=== PATIENT | male | born 1945 | race Two or more races ===

== ENCOUNTER → 2024-02-26 | Outpatient (CLI) | payer OTHER, MEDICAID, SELFPAY ==
[2024-02-26 09:14] LABS: Basophils % (Auto) 0 % (0-2.5); Eosinophils # (Auto) 0.2 Thou/mm3 (0.0-0.5); Eosinophils % (Auto) 2 % (0-10); Hematocrit 40.9 % (41.0-53.0); Hemoglobin 13.7 g/dL (13.5-16.0); Immature Granulocytes % (Auto) 0 % (0-0); Immature Granulocytes Auto 0.03 Thou/mm3 (0.00-0.00); Lymphocytes # (Auto) 1.8 Thou/mm3 (1.0-4.8); Lymphocytes % (Auto) 25 % (10-50); Mean Corpuscular HGB Conc 33.5 g/dl (31.0-37.0); Mean Corpuscular Hemoglobin 31.3 pg (25.0-35.0); Mean Corpuscular Volume 93 fL (80-100); Monocytes # (Auto) 0.8 Thou/mm3 (0.0-0.8); Monocytes % (Auto) 10 % (0-12); Neutrophils # (Auto) 4.4 Thou/mm3 (1.8-7.7); Neutrophils % (Auto) 61 % (37-80); Nucleated Red Blood Cell % 0 /100 WBC (0); Platelet Count 230 Thou/mm3 (140-440); RDW Standard Deviation 46.3 fL (35.1-43.9); Red Blood Count 4.38 Miln/mm3 (4.50-5.90); White Blood Count 7.2 Thou/mm3 (3.8-10.6)
[2024-02-26 09:45] LABS: Alanine Aminotransferase 14 U/L (10-49); Albumin, Serum 4.9 gm/dL (3.4-4.8); Alkaline Phosphatase 85 U/L (46-116); Anion Gap 10 (7-16); Aspartate Amino Transferase 17 U/L (0-34); BUN/Creatinine Ratio 13 Ratio (12-20); Bilirubin,Direct 0.3 mg/dL (0.0-0.3); Blood Urea Nitrogen 15 mg/dL (9-23); Calcium 10.1 mg/dL (8.3-10.6); Carbon Dioxide 26.3 mMol/L (20.0-31.0); Cardiac Risk Estimate 3.8 RATIO (4.0-6.7); Chloride 99 mMol/L (98-107); Cholesterol 180 mg/dL (132-200); Creatinine (Component) 1.2 mg/dL (0.6-1.3); Glucose 110 mg/dL (74-106); HDL Cholesterol 48 mg/dL (40-60); LDL Cholesterol,Calculated 116 mg/dL (0-130); Osmolality,Calculated 271 (275-295); Potassium 4.6 mMol/L (3.4-5.1); Sodium 135 mMol/L (136-145); Total Protein 7.7 gm/dL (5.7-8.2); Triglycerides 80 mg/dL (30-150); eGFR > 60 See Note
[2024-02-26 10:16] LABS: Glucose Estimated Average 114 mg/dL (80-131); Hemoglobin A1C 5.6 % Hgb (4.8-6.0)
[2024-02-26 10:34] LABS: Creatinine MALB Rnd Ur 84 mg/dL (30-125); Microalbumin, Random Urine < 3 mg/L (0-300)
== END | disposition home or self-care (01) ==
LOC: COPL 07:12
PROVIDERS: PCP Family Medicine; Referring Provider Family Medicine; Visit Provider Family Medicine
DX: E11.3293 Type 2 diabetes mellitus with mild nonproliferative diabetic retinopathy without macular edema, bilateral (principal); M19.90 Unspecified osteoarthritis, unspecified site; E78.5 Hyperlipidemia, unspecified
CPT/HCPCS: 36415; 80048; 80061; 80076; 82043; 82570; 83036; 85025

== ENCOUNTER 2024-06-28 19:21 | Inpatient (IN) | payer OTHER, MEDICAID, MEDICARE, SELFPAY ==
--- NOTE | 2024-06-28 | XR_ITS ---
Examination: CT cervical spine without contrast 2-D sagittal reconstructions 2-D coronal reconstructions 3-D reconstructions. Exam date and time:June 28, 2024 2158 hours INDICATIONS: Neck pain with bilateral leg weakness today CTDI:vol (mGy) 7.57 DLP: (mGycm) 1212 Technique: Multiple 2 mm axial sections of the cervical spine have been obtained. The coronal and sagittal reconstructions have been obtained. 3-D reconstructions have been obtained. Low dose protocols were performed. One or more of the following dose reduction techniques were used; automated exposure control, adjustment of the mA and/or KV according to patient size, use of iterative reconstruction technique. Findings: Axial sections demonstrate intact base of the skull. C1 exhibit satisfactory relationship to the odontoid. No acute cervical vertebral body fracture seen. Alignment posterior spinous processes satisfactory. Advanced degenerative disc disease C3-C4, C4-C5 Impression: No acute cervical fracture. Advanced degenerative disc disease C3-C4, C4-C5 C3-C4, C4-C5 advanced bilateral neural foraminal stenosis
[2024-06-28 19:23] VITALS: BP 196/110; PULSE 118; RESP 18; TEMP 36.4; O2SAT 96
--- NOTE | 2024-06-28 19:33 | PD.EDFALL ---
ED Fall Injury RME/HPI General Chief Complaint: Fall Stated Complaint: WEAKNESS Time Seen by Provider: 06/28/24 19:32 Arrival date/time: 06/28/24 19:21 RME / HPI RME / HPI Narrative: Dr. Valdez?s Main ED Evaluation: 78yo male with a history of DM BIBA from home presents to the ED for a chief complaint of weakness. Per EMS, patient was watching TV when he was getting up when the patient's legs started feeling weak and fell. EMS states they found the patient laying on his side. They deny any head strikes or loss of consciousness. Blood sugar with EMS was 104. No headache, neck pain, chest pain, abdominal pain, shortness of breath or any other associated symptoms. Patient is not on any blood thinners. Patient does live alone. Related Data Home Medications ?Medication ?Instructions ?Recorded ?Confirmed paroxetine HCl 40 mg tablet (Paxil) 40 mg PO QAM #0 tabs 07/02/13 07/24/18 omeprazole 20 mg capsule,delayed 20 mg PO QDAY 07/24/18 07/24/18 release pioglitazone 30 mg tablet 30 mg PO QDAY 07/24/18 07/24/18 sitagliptin phosphate 100 mg 100 mg PO DAILY 07/24/18 07/24/18 tablet (Januvia) Previous Rx's ?Medication ?Instructions ?Recorded metformin 500 mg tablet 500 mg PO BIDAC #120 tabs 06/14/15 (Glucophage) ibuprofen 800 mg tablet 800 mg PO TID PRN pain #30 tabs 07/24/18 Allergies Allergy/AdvReac Type Severity Reaction Status Date / Time NKA* Allergy Uncoded 10/02/16 15:04 Review of Systems Review of Systems Systems Reviewed: All systems reviewed, normal except as documented Past Medical History Past Medical History CARDIAC: Negative Cardiac Disorders or Congestive Heart Failure RESPIRATORY: Positive Asthma; Negative Chronic Obstructive Pulmonary Disease (COPD) GASTROINTESTINAL: Positive Cirrhosis GENITOURINARY: Negative Renal Disease ENDOCRINE: Positive Diabetes Mellitus Type 2; Negative Diabetes Mellitus Type 1 HEMATOLOGIC: Negative Sickle Cell Disease Social History SMOKING STATUS: Never smoker SUBSTANCE USE: does not use ED Exam Narrative Physical exam: GENERAL APPEARANCE: AxOx4, generally well-appearing, malodorous, unkempt, no acute distress. HEENT: NC, AT. MMM. EOMI, clear conjunctiva, oropharynx clear. NECK: Supple without lymphadenopathy. No stiffness or restricted ROM. HEART: Normal rate and regular rhythm, normal S1/S1, no m/r/g LUNGS: CTAB, moving air well. No crackles or wheezes are heard. ABDOMEN: Soft, nontender, nondistended with good bowel sounds heard. BACK: No midline C/T/L spine pain or deformity, No CVAT, no obvious deformity. EXTREMITIES: Without cyanosis, clubbing or edema. MUSCULOSKELETAL: FROM of all major joints, no chest tenderness NEUROLOGICAL: Grossly nonfocal. Alert and oriented, moving all 4 extremities. CN not formally tested but appear grossly intact. Observed to ambulate with normal gait. Skin: Warm and dry without any rash. Course Course Course Narrative: CXR is ordered to r/o pneumothorax. CT abdomen pelvis and US gallbladder ordered due to LFTs and Total Bilirubin being elevated. 0441: Patient is now more awake and talking. Patient states he fell 2 days ago and hit his back, reporting he's had persistent back pain since. Prior to that, patient was able to ambulate normally without a walker or cane. On exam, patient has L2-L3 midline tenderness without any stepoff or swelling. MRI of the spine is ordered. 0600: Care signed out to Dr. Cavazos (emergency physician). Past medical, surgical, social and family history reviewed. Vitals and home medications reviewed. Results and treatment plan discussed. They will assume the care of the patient at this time and will follow the patient, pending MRI of the spine. Quality Measures none Orders Category Date Time Status CT Screening NOW Care 06/28/24 23:02 Active EKG (ED ONLY) *Do not use* NOW Care 06/28/24 19:49 Completed In and Out Catheter X1 Care 06/28/24 23:51 Completed MRI Screening NOW Care 06/29/24 04:[address] abdomen pelvis w con Stat Exams 06/28/24 23:[address] cervical spine wo con Stat Exams 06/28/[address] head/brain wo con Stat Exams 06/28/24 19:50 Completed EKG (ED Only) Stat Exams 06/28/24 19:49 Draft MR lumbar spine wo con Stat Exams 06/29/24 Ordered MR thoracic spine wo con Stat Exams 06/29/24 Ordered US gall bladder Stat Exams 06/29/24 00:40 Taken XR chest 1V Stat Exams 06/28/24 19:49 Completed Acetaminophen Stat Lab 06/28/24 21:28 Completed Alcohol, Blood Medical Stat Lab 06/28/24 21:28 Completed Blood Culture (Lab) Stat Lab 06/28/24 21:28 Received CBC Stat Lab 06/28/24 22:47 Completed CMP [Comprehensive Metabolic Panel] Stat Lab 06/28/24 21:28 Completed Drug Screen,Urine Stat Lab 06/28/24 23:45 Completed Lactate (Lactic Acid) Stat Lab 06/28/24 21:28 Completed Lactic Acid, 3 HR Stat Lab 06/29/24 01:13 Completed Procalcitonin Stat Lab 06/28/24 21:28 Completed Salicylate Stat Lab 06/28/24 21:28 Completed Troponin I Stat Lab 06/28/24 21:28 Completed Urinalysis Stat Lab 06/28/24 23:45 Completed Sodium Chloride 0.9% 1000 ml [Ns] 1,000 ml Med 06/28/24 19:43 Discontinued IV 999 mls/hr Sodium Chloride 0.9% 1000 ml [Ns] 1,000 ml Med 06/28/24 23:27 Discontinued IV 999 mls/hr Vital Signs Vital signs: Vital Signs Temperature 97.6 F 06/28/24 19:23 Pulse Rate 118 H 06/28/24 19:23 Respiratory Rate 18 06/28/24 19:23 Blood Pressure 196/110 H 06/28/24 19:23 Pulse Oximetry (%) 96 06/28/24 19:23 Oxygen Delivery Method Room Air 06/28/24 19:23 Fall MDM Narrative MDM Narrative:: Scribe Attestation: 06/28/24 Karla Garcia am scribing for and in the presence of Dr. Valdez. Patient data External records reviewed:: [facility] previous records (Per chart review, patient was seen here on 10/11/20 for dizziness.) Clinical information provided by:: EMS Social determinants that could affect healthcare access:: none Patient has the following chronic illnesses:: DM, asthma How is presenting disease/condition affected by chronic disease/condition?: uneffected by Evaluation data The following diagnostics were reviewed and interpreted by me:: lab results, radiology exam(s) and EKG tracing(s) Lab and/or radiology exams considered but not ordered:: none Interpretation Summary: Lactic Acid is 2.1, Procalcitonin is normal, Salicylates is negative, Acetaminophen is negative, total bilirubin is elevated at 2.3, AST and Alkaline Phosphatase are elevated, Blood Alcohol is negative, UDS is negative, according to my interpretation. Repeat lactic acid is normal. EKG done at 2020, sinus tachycardia, rate of 119, normal intervals, normal axis, no acute ST or T wave changes, according to my interpretation. [facility] Report Signed Patient: JOSE VICENTE [facility]. Record#: [id number] Birthdate: 1945 Age/Sex: 78 / M Location: [facility] Attending Dr: Ordering Physician: Petey Valdez MD Date of Service: 06/28/24 Procedure(s): XR chest 1V Accession Number(s): [id number] cc: Petey Valdez MD; Rusty Jimenez MD~ Examination: AP chest single view Technique one AP portable semiupright chest single view Date and time: June 28, 2024 2130 hours Comparison October 11, 2020 INDICATIONS: Weakness today. FINDINGS: Normal heart size Moderate vascular congestion No gerald lobar pneumonia Prominent osteopenia IMPRESSION: Moderate vascular congestion Dictated By: Rusty Jimenez MD Signed By: <Electronically signed by Rusty Jimenez MD in OV> 06/28/243 [facility] Preliminary Report Draft Patient: JOSE VICENTE [facility]. Record#: [id number] Birthdate: 1945 Age/Sex: 78 / M Location: [facility] Attending Dr: Ordering Physician: Date of Service: Procedure(s): Accession Number(s): cc: ~ Gallbladder ultrasound. June 29, 2024 0049 hours Clinical history: elevated liver enzymes Comparison: Reference is made to the prior report dated July 24, 2018. Findings: There is increased echogenicity of the liver. The liver demonstrates heterogeneous echotexture without mass or ductal dilatation. The main portal vein is patent and demonstrates hepatopetal flow. The hepatic veins and inferior vena cava are patent. The gallbladder is surgically absent. No operative bed masses or collections. The common duct is normal in caliber at 4 mm. The pancreas is unremarkable to the extent visualized. No free fluid is demonstrated on the submitted images. Impression: Heterogeneous echotexture and increased echogenicity of the liver. Recommend clinical correlation. Report Electronically Signed By: Alejandro Child 06/29/2024 2:31:44 AM [EST] --------- [facility] Preliminary Report Draft Patient: JOSE VICENTE. Record#: [id number] Birthdate: 1945 Age/Sex: 78 / M Location: [facility] Attending Dr: Ordering Physician: Date of Service: Procedure(s): Accession Number(s): cc: ~ CT scan of the abdomen and pelvis with intravenous contrast (axial sections with sagittal and coronal reformats) June 29, 2024 0159 hours Clinical History: abdominal pain, elevated bilirubin Comparison: Correlated with the prior US study performed earlier today. Findings: Bibasilar dependent atelectasis is present. There is interstitial septal thickening in both lung bases. There is small pericardial effusion. A 1.8 cm cyst is noted in the liver. The gallbladder is surgically absent. The pancreas, spleen, kidneys and adrenals are unremarkable. A moderate-sized hiatal hernia is present. No evidence of bowel obstruction. The appendix is not visualized. There are occasional colonic diverticula without evidence of diverticulitis. There is no mesenteric or retroperitoneal adenopathy. There is prostatomegaly. The urinary bladder is unremarkable. There is no free fluid or free air. The bones are osteopenic. Degenerative changes are identified in the spine. Impression: No evidence of bowel obstruction, free air or abscess. Other findings as described above. Report Electronically Signed By: Alejandro Child 06/29/2024 2:57:53 AM [EST] Medications / Prescriptions Medications or Prescriptions considered but not ordered:: none Medication administrations:: Medication Administration History Discontinued Medications Sodium Chloride (Ns) 1,000 mls @ 999 mls/hr IV .Q1H1M ONE Stop: 06/28/24 20:43 Last Infusion: 06/28/24 22:18 Dose: Infused Documented By: Admin: 06/28/24 21:17 Dose: 999 mls/hr Documented By: EF Sodium Chloride (Ns) 1,000 mls @ 999 mls/hr IV .Q1H1M ONE Stop: 06/29/24 00:27 Last Infusion: 06/29/24 00:33 Dose: Infused Documented By: Admin: 06/28/24 23:32 Dose: 999 mls/hr Documented By: DT see above Consultations Consultation(s) initiated? (list below): No Diagnosis Fall Differential Diagnosis: other (musculoskeletal strain, lumbar fracture, rib fracture, dehydration, rhabdomyolysis, EL) Most likely diagnosis given after review of the tests above:: see clinical impression below Admission Indicated Admission indicated?: not indicated Admission Request Was there a request for admission?: No Disposition Plan Disposition Plan: other (specify) (Signed out to Dr. Cavazos at 0600 pending MRI.) Discharge Plan Prescriptions/Referrals Prescriptions/Med Rec: No Action paroxetine HCl [Paxil] 40 MG tablet 40 mg PO QAM Qty: 0 metformin [Glucophage] 500 MG tablet 500 mg PO BIDAC Qty: 120 0RF omeprazole 20 mg Capsule,Delayed Release(Dr/Ec) 20 mg PO QDAY pioglitazone 30 mg Tablet 30 mg PO QDAY Januvia 100 mg Tablet 100 mg PO DAILY ibuprofen 800 mg tablet 800 mg PO TID PRN (Reason: pain) Qty: 30 0RF Referrals: Kat Esteban MD [Primary Care Provider] - In 1 week Problem List Clinical Impression: Fall Patient/Caregiver Discharge Instructions Print Language: Liberian
--- NOTE | 2024-06-28 19:49 | XR_ITS ---
Examination: AP chest single view Technique one AP portable semiupright chest single view Date and time: June 28, 2024 2130 hours Comparison October 11, 2020 INDICATIONS: Weakness today. FINDINGS: Normal heart size Moderate vascular congestion No gerald lobar pneumonia Prominent osteopenia IMPRESSION: Moderate vascular congestion
--- NOTE | 2024-06-28 19:49 | EKG_ITS ---
[facility] Test Date: 2024-06-28 Pat Name: JOSE VICENTE Department: Room: - Gender: Male Press Leader: : 1945 Requested By: Petey Valdez Order Number: [id number] Reading MD: Petey Valdez Measurements Intervals [place] Rate: 119 P: 42 CA: 174 QRS: 15 QRSD: 100 T: 63 QT: 326 QTc: 459 Interpretive Statements SINUS TACHYCARDIA MODERATE ST DEPRESSION [0.05+ mV ST DEPRESSION] Compared to ECG 07/23/2018 23:07:24 ST (T wave) deviation now present Sinus rhythm no longer present /store/S0/[id number].pdf
--- NOTE | 2024-06-28 19:50 | XR_ITS ---
Examination: CT brain head without contrast. 2-D sagittal coronal reconstructions Date and time of exam:June 28, 2024 2158 hours INDICATIONS: Headaches and leg weakness today CTDI: vol (mGy):7.57 DLP: (mGycm):1212 Technique: Multiple CT axial sections of the brain have been obtained, 5 mm slice thickness. Contrast has not been administered. 2-D sagittal, coronal reconstructions have been obtained Low dose protocols were performed. One or more of the following dose reduction techniques were used; automated exposure control, adjustment of the mA and/or KV according to patient size, use of iterative reconstruction technique. Findings: No significant ventricular enlargement. 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 No mass effect or midline shift Basal cisterns are not remarkable. Fourth ventricle is midline. Cranial vault intact. Acute sphenoid and ethmoid sinusitis, chronic maxillary sinusitis Impression: Negative for acute hemorrhage, mass effect or midline shift Is clinically warranted, brain MRI follow-up would best assess for acute ischemic change
[2024-06-28 20:56] VITALS: PULSE 116; RESP 20; O2SAT 98
[2024-06-28 21:00] VITALS: BP 175/105; PULSE 114; RESP 24; TEMP 36.5; O2SAT 90; BMI 26.6
[2024-06-28] MEDS: SODIUM CHLORIDE 0.9% 1000 ML 1,000 ML 999 ML IV ×2 (21:17→23:32)
[2024-06-28 21:44] LABS: Lactate (Lactic Acid) 2.1 mMol/L (0.4-2.0)
[2024-06-28 22:13] LABS: Acetaminophen < 2.0 mcg/mL (10.0-20.0); Alanine Aminotransferase 41 U/L (10-49); Albumin, Serum 4.4 gm/dL (3.4-4.8); Albumin/Globulin Ratio 1.3 (1.2-2.2); Alcohol, Blood Medical < 3.0 mg/dL (0-10.0); Alkaline Phosphatase 118 U/L (46-116); Anion Gap 9 (7-16); Aspartate Amino Transferase 43 U/L (0-34); BUN/Creatinine Ratio 16 Ratio (12-20); Bilirubin,Total 2.3 mg/dL (0.3-1.2); Blood Urea Nitrogen 13 mg/dL (9-23); Calcium 9.1 mg/dL (8.3-10.6); Calcium (Corrected) 9.1 mg/dL (8.5-10.1); Carbon Dioxide 26.2 mMol/L (20.0-31.0); Chloride 101 mMol/L (98-107); Creatinine (Component) 0.8 mg/dL (0.6-1.3); Estimated Creatinine Clearance 74.9 mL/min (>60); Globulin 3.4 gm/dL (2.3-3.5); Glucose 131 mg/dL (74-106); Osmolality,Calculated 274 (275-295); Procalcitonin 0.17 ng/ml (0.0-0.49); Salicylate < 3.0 mg/dL; Sodium 136 mMol/L (136-145); Total Protein 7.8 gm/dL (5.7-8.2); Troponin I < 0.020 ng/mL (0.0-0.045); eGFR > 60 See Note
[2024-06-28 22:42] VITALS: BP 184/97; PULSE 110; RESP 17; O2SAT 98
[2024-06-28 23:00] LABS: Basophils % (Auto) 0 % (0-2.5); Eosinophils % (Auto) 0 % (0-10); Hematocrit 34.7 % (41.0-53.0); Hemoglobin 12.6 g/dL (13.5-16.0); Immature Granulocytes % (Auto) 2 % (0-0); Immature Granulocytes Auto 0.17 Thou/mm3 (0.00-0.00); Lymphocytes # (Auto) 0.6 Thou/mm3 (1.0-4.8); Lymphocytes % (Auto) 6 % (10-50); Mean Corpuscular HGB Conc 36.3 g/dl (31.0-37.0); Mean Corpuscular Hemoglobin 32.1 pg (25.0-35.0); Mean Corpuscular Volume 88 fL (80-100); Monocytes % (Auto) 10 % (0-12); Neutrophils # (Auto) 8.5 Thou/mm3 (1.8-7.7); Neutrophils % (Auto) 83 % (37-80); Nucleated Red Blood Cell % 0 /100 WBC (0); Platelet Count 197 Thou/mm3 (140-440); RDW Standard Deviation 41.4 fL (35.1-43.9); Red Blood Count 3.93 Miln/mm3 (4.50-5.90); White Blood Count 10.3 Thou/mm3 (3.8-10.6)
--- NOTE | 2024-06-28 23:02 | XR_ITS ---
Examination: CT abdomen with intravenous contrast CT pelvis with intravenous contrast 2-D coronal reconstructions 2-D sagittal reconstructions Date and time of exam:June 29, 2024 at 0201 hours Comparison 03/26/2018 INDICATIONS: Abdominal pain and elevated bilirubin today. CTDI: vol (mGy) 7.53 DLP: (mGycm) 444 Technique: Multiple axial sections of the abdomen and pelvis have been obtained. 64 slice high-resolution scanner used. 3 mm axial sections have been obtained, post intravenous injection 60 cc [id number] 2-D sagittal, coronal reconstructions obtained. Low dose protocols were performed. One or more of the following dose reduction techniques were used; automated exposure control, adjustment of the mA and/or KV according to patient size, use of iterative reconstruction technique. Findings: 20 mm right lobe liver cyst Absent gallbladder Spleen not enlarged Common bile duct 10 mm Minimal dilatation 3 mm pancreatic duct Nodular thickening left adrenal gland Aorta normal size No hydronephrosis No bowel obstruction No pericecal inflammatory changes No diverticulitis TURP defect Transverse prostate dimension 5 cm Fat-containing inguinal hernias Prominent osteopenia with advanced disc narrowing L5-S1 IMPRESSION: Common bile duct 10 mm, mild dilatation pancreatic duct, given the patient's elevated bilirubin, consider MRCP follow-up
[2024-06-28 23:54] LABS: Collection Type, Urine Catheter; Squamous Epithelial Cell,Urine 0 /hpf (0-5); WBC,Urine 0 /hpf (0-5)
[2024-06-29] VITALS (11 sets, daily range): BP systolic 150–196; BP diastolic 69–137; PULSE 100–118; RESP 16–28; TEMP 36.4–38.3; O2SAT 91–96
--- NOTE | 2024-06-29 | XR_ITS ---
Examination: MRI lumbar spine without contrast Date and time of exam: June 29, 2024 0901 hours INDICATIONS: Patient fell yesterday with injury to the lower back, lower back pain. Technique: Multiple MRI axial and sagittal sections lumbar spine. Sagittal T2-weighted images, TR 3500, TE 118 T1 weighted transverse sections, TR 688 T8.5, T2-weighted sagittal sections T1 weighted sagittal sections TR 621, TE 30 T2 axial sections, TR 4, 190, TE 84. Findings: Acute fracture L1 vertebral body, depression superior endplate, reduction in height 20% Adequate alignment of this lumbar vertebral body Advanced disc narrowing L5-S1 L5-S1 2 mm central lumbar disc bulge L4-L5 5 mm right paracentral disc bulge L3-L4 2 mm central lumbar disc L2-L3 no disc protrusion L1-L2 no disc protrusion IMPRESSION: Consider CT scan lumbar spine follow-up to assess stability of acute fracture L1 vertebral body
--- NOTE | 2024-06-29 | XR_ITS ---
Examination: MRI thoracic spine without contrast. Date and time of exam: June 29, 2024 0827 hours INDICATIONS: Patient fell yesterday with injury to the back, back pain Technique: Multiple sagittal and axial images of the thoracic spine have been obtained. T1 weighted localizer, sagittal T2 weighted images, TR 30-50, TE 148, T1 weighted sagittal images, TR 650, TE 14, T2-weighted transverse images, TR 6770, TE 142 Findings: Adequate alignment thoracic vertebral bodies on the lateral view No acute thoracic fracture Diffuse thoracic disc narrowing, mild to moderate Diffuse thoracic disc desiccation No localized enlargement thoracic cord Axial images demonstrate no focal disc protrusion impinging upon the thoracic cord Acute appearing fracture depression superior endplate L1 IMPRESSION: Diffuse [id number] thoracic degenerative disc disease No acute thoracic fracture No focal thoracic disc protrusion impinging upon the thoracic cord Impression: Recommend CT scan lumbar spine follow-up to confirm acute compression fracture L1 vertebral body
[2024-06-29 00:22] LABS: Amphetamine/Methamp Scrn,U Negative (Negative); Barbiturate Screen,Urine Negative (Negative); Benzodiazepines Screen,Urine Negative (Negative); Benzoylecgonine Screen, Ur Negative (Negative); Fentanyl Screen,Urine Negative (Negative); Opiate Screen,Urine Negative (Negative); THC Screen,Urine Negative (Negative)
[2024-06-29 00:39] LABS: Bacteria,Urine Rare; Bilirubin,Urine Negative (Negative); Blood,Urine 2+ (Negative); Clarity,Urine Clear (Clear/Hazy); Color,Urine Yellow (Lt Yel-Yel); Glucose, Urine Negative (Negative); Ketones,Urine 1+ (Negative); Leukocyte Esterase,Urine Negative (Negative); Nitrite,Urine Negative (Negative); PH,Urine 6.5 (5.0-7.0); Protein,Urine Trace (Neg - Trace); RBC,Urine 79 /hpf (0-3); Specific Gravity,Urine 1.015 (1.001-1.035)
--- NOTE | 2024-06-29 00:40 | XR_ITS ---
Examination: Abdomen sonogram, Limited Date and time of exam: June 29, 2024 0049 hours INDICATIONS: Elevated liver function tests including bilirubin on laboratory examination today and with upper abdominal pain Technique: Real-time valderrama scale transabdominal sonographic images of the upper abdomen obtained. Findings: No diagnostic visualization gallbladder Common bile duct 0.4 cm Pancreatic head 1.7 cm Liver 15.6 cm fatty infiltration Normal hepatopedal portal venous and Patent IVC IMPRESSION: Limited study, lack of patient cooperation No diagnostic visualization gallbladder Common bile duct 0.4 cm no stones noted
[2024-06-29 00:42] LABS: Reflex Lactate? Y
[2024-06-29 01:20] LABS: Lactic Acid, 3 HR 1.8 mMol/L (0.4-2.0)
--- NOTE | 2024-06-29 02:32 | PRELIM_ITS ---
Gallbladder ultrasound. June 29, 2024 0049 hours Clinical history: elevated liver enzymes Comparison: Reference is made to the prior report dated July 24, 2018. Findings: There is increased echogenicity of the liver. The liver demonstrates heterogeneous echotexture without mass or ductal dilatation. The main portal vein is patent and demonstrates hepatopetal flow. The hepatic veins and inferior vena cava are patent. The gallbladder is surgically absent. No operative bed masses or collections. The common duct is normal in caliber at 4 mm. The pancreas is unremarkable to the extent visualized. No free fluid is demonstrated on the submitted images. Impression: Heterogeneous echotexture and increased echogenicity of the liver. Recommend clinical correlation. Report Electronically Signed By: Alejandro Child 06/29/2024 2:31:44 AM [EST]
--- NOTE | 2024-06-29 02:59 | PRELIM_ITS ---
CT scan of the abdomen and pelvis with intravenous contrast (axial sections with sagittal and coronal reformats) June 29, 2024 0159 hours Clinical History: abdominal pain, elevated bilirubin Comparison: Correlated with the prior US study performed earlier today. Findings: Bibasilar dependent atelectasis is present. There is interstitial septal thickening in both lung bases. There is small pericardial effusion. A 1.8 cm cyst is noted in the liver. The gallbladder is surgically absent. The pancreas, spleen, kidneys and adrenals are unremarkable. A moderate-sized hiatal hernia is present. No evidence of bowel obstruction. The appendix is not visualized. There are occasional colonic diverticula without evidence of diverticulitis. There is no mesenteric or retroperitoneal adenopathy. There is prostatomegaly. The urinary bladder is unremarkable. There is no free fluid or free air. The bones are osteopenic. Degenerative changes are identified in the spine. Impression: No evidence of bowel obstruction, free air or abscess. Other findings as described above. Report Electronically Signed By: Alejandro Child 06/29/2024 2:57:53 AM [EST]
--- NOTE | 2024-06-29 03:30 | PC.NURSE ---
bp 158/137 aware no new orders
--- NOTE | 2024-06-29 04:14 | PC.NURSE ---
bp 216/118 aware no new orders
--- NOTE | 2024-06-29 05:23 | PC.NURSE ---
bp 205/102 made aware
--- NOTE | 2024-06-29 06:18 | EDNOTE_ITS ---
Emergency Room Addendum <Negra El - Last Filed: 06/29/24 13:47> Addendum Narrative: 0600: Care assumed from Dr. Valdez (emergency physician). Past medical, surgical, social and family history reviewed. Vitals and home medications reviewed. Results and treatment plan discussed. I will assume the care of the patient at this time and will follow the patient, pending MRI of thoriacic spine and lumbar spine. 1047: I evaluated the MRI lumbar and results found acute fracture L1 vertebral body and depression superior endplate. Recommendation of further diagnostic imaging of CT lumbar spine was made. Pending CT lumbar spine results. Patient was notified of findings and further diagnostic imagining orders. Was notified by director of social work that PT is requesting a TLSO brace for L1 compression fracture prior to evaluation. They have requested a TLSO prescription ordered, which has been completed. DIAGNOSIS: RADIOLOGY: Ordering Physician: Riley Cavazos MD Date of Service: 06/29/24 Procedure(s): CT lumbar spine wo con Accession Number(s): [id number] cc: Riley Cavazos MD; Rusty Jimenez MD; Amy Terrazas MD~ Examination: CT lumbar spine, without contrast. 2-D sagittal reconstructions. 2-D coronal reconstructions. 3-D reconstructions. Date and time of exam:June 29, 2024 at 1118 hours INDICATIONS: Patient fell today with injury to lower back, lower back pain CTDI: vol (mGy):21.5 DLP: (mGycm):784 Technique: Multiple 1.25 mm axial sections of the lumbar spine without intravenous contrast have been obtained. 2-D sagittal and coronal reconstructions have been obtained. 3-D reconstructions have been obtained. Low dose protocols were performed. One or more of the following dose reduction techniques were used; automated exposure control, adjustment of the mA and/or KV according to patient size, use of iterative reconstruction technique. Findings: Acute fracture of L1 vertebral body, depression superior endplate, reduction in height 10% No retropulsion of this vertebral body The pedicles and lamina in transverse posterior spinous processes are intact Significant disc narrowing L5-S1 IMPRESSION: Mild acute fracture L1 vertebral body with satisfactory alignment Dictated By: Rusty Jimenez MD Signed By: <Electronically signed by Rusty Jimenez MD in OV> 06/29/24 1133 Ordering Physician: Petey Valdez MD Date of Service: 06/29/24 Procedure(s): MR lumbar spine wo con Accession Number(s): [id number] cc: Petey Valdez MD; Rusty Jimenez MD; Amy Terrazas MD~ Examination: MRI lumbar spine without contrast Date and time of exam: June 29, 2024 0901 hours INDICATIONS: Patient fell yesterday with injury to the lower back, lower back pain. Technique: Multiple MRI axial and sagittal sections lumbar spine. Sagittal T2-weighted images, TR 3500, TE 118 T1 weighted transverse sections, TR 688 T8.5, T2-weighted sagittal sections T1 weighted sagittal sections TR 621, TE 30 T2 axial sections, TR 4, 190, TE 84. Findings: Acute fracture L1 vertebral body, depression superior endplate, reduction in height 20% Adequate alignment of this lumbar vertebral body Advanced disc narrowing L5-S1 L5-S1 2 mm central lumbar disc bulge L4-L5 5 mm right paracentral disc bulge L3-L4 2 mm central lumbar disc L2-L3 no disc protrusion L1-L2 no disc protrusion IMPRESSION: Consider CT scan lumbar spine follow-up to assess stability of acute fracture L1 vertebral body Dictated By: Rusty Jimenez MD Signed By: <Electronically signed by Rusty Jimenez MD in OV> 06/29/2428 Ordering Physician: Petey Valdez MD Date of Service: 06/29/24 Procedure(s): MR thoracic spine wo con Accession Number(s): [id number] cc: Petey Valdez MD; Rusty Jimenez MD; Amy Terrazas MD~ Examination: MRI thoracic spine without contrast. Date and time of exam: June 29, 2024 0827 hours INDICATIONS: Patient fell yesterday with injury to the back, back pain Technique: Multiple sagittal and axial images of the thoracic spine have been obtained. T1 weighted localizer, sagittal T2 weighted images, TR 30-50, TE 148, T1 weighted sagittal images, TR 650, TE 14, T2-weighted transverse images, TR 6770, TE 142 Findings: Adequate alignment thoracic vertebral bodies on the lateral view No acute thoracic fracture Diffuse thoracic disc narrowing, mild to moderate Diffuse thoracic disc desiccation No localized enlargement thoracic cord Axial images demonstrate no focal disc protrusion impinging upon the thoracic cord Acute appearing fracture depression superior endplate L1 IMPRESSION: Diffuse ggmn-[id number]-npetdwsr thoracic degenerative disc disease No acute thoracic fracture No focal thoracic disc protrusion impinging upon the thoracic cord Impression: Recommend CT scan lumbar spine follow-up to confirm acute compression fracture L1 vertebral body Dictated By: Rusty Jimenez MD Signed By: <Electronically signed by Rusty Jimenez MD in OV> 06/29/24 0921 Ordering Physician: Petey Valdez MD Date of Service: 06/28/24 Procedure(s): CT cervical spine [facility] Accession Number(s): [id number] cc: Petey Valdez MD; Rusty Jimenez MD~ Examination: CT cervical spine without contrast 2-D sagittal reconstructions 2-D coronal reconstructions 3-D reconstructions. Exam date and time:June 28, 2024 2158 hours INDICATIONS: Neck pain with bilateral leg weakness today CTDI:vol (mGy) 7.57 DLP: (mGycm) 1212 Technique: Multiple 2 mm axial sections of the cervical spine have been obtained. The coronal and sagittal reconstructions have been obtained. 3-D reconstructions have been obtained. Low dose protocols were performed. One or more of the following dose reduction techniques were used; automated exposure control, adjustment of the mA and/or KV according to patient size, use of iterative reconstruction technique. Findings: Axial sections demonstrate intact base of the skull. C1 exhibit satisfactory relationship to the odontoid. No acute cervical vertebral body fracture seen. Alignment posterior spinous processes satisfactory. Advanced degenerative disc disease C3-C4, C4-C5 Impression: No acute cervical fracture. Advanced degenerative disc disease C3-C4, C4-C5 C3-C4, C4-C5 advanced bilateral neural foraminal stenosis Dictated By: Rusty Jimenez MD Signed By: <Electronically signed by Rusty Jimenez MD in OV> 06/28/242256 Ordering Physician: Petey Valdez MD Date of Service: 06/28/24 Procedure(s): XR chest 1V Accession Number(s): [id number] cc: Petey Valdez MD; Rusty Jimenez MD~ Examination: AP chest single view Technique one AP portable semiupright chest single view Date and time: June 28, 2024 2130 hours Comparison October 11, 2020 INDICATIONS: Weakness today. FINDINGS: Normal heart size Moderate vascular congestion No gerald lobar pneumonia Prominent osteopenia IMPRESSION: Moderate vascular congestion Dictated By: Rusty Jimenez MD Signed By: <Electronically signed by Rusty Jimenez MD in OV> 06/28/242152 ====== Ordering Physician: Petey Valdez MD Date of Service: 06/28/24 Procedure(s): CT head/brain wo con Accession Number(s): [id number] cc: Petey Valdez MD; Rusty Jimenez MD~ Examination: CT brain head without contrast. 2-D sagittal coronal reconstructions Date and time of exam:June 28, 2024 2158 hours INDICATIONS: Headaches and leg weakness today CTDI: vol (mGy):7.57 DLP: (mGycm):1212 Technique: Multiple CT axial sections of the brain have been obtained, 5 mm slice thickness. Contrast has not been administered. 2-D sagittal, coronal reconstructions have been obtained Low dose protocols were performed. One or more of the following dose reduction techniques were used; automated exposure control, adjustment of the mA and/or KV according to patient size, use of iterative reconstruction technique. Findings: No significant ventricular enlargement. 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 No mass effect or midline shift Basal cisterns are not remarkable. Fourth ventricle is midline. Cranial vault intact. Acute sphenoid and ethmoid sinusitis, chronic maxillary sinusitis Impression: Negative for acute hemorrhage, mass effect or midline shift Is clinically warranted, brain MRI follow-up would best assess for acute ischemic change Dictated By: Rusty Jimenez MD Signed By: <Electronically signed by Rusty Jimenez MD in OV> 06/28/24 4385 Ordering Physician: Date of Service: Procedure(s): Accession Number(s): cc: ~ CT scan of the abdomen and pelvis with intravenous contrast (axial sections with sagittal and coronal reformats) June 29, 2024 0159 hours Clinical History: abdominal pain, elevated bilirubin Comparison: Correlated with the prior US study performed earlier today. Findings: Bibasilar dependent atelectasis is present. There is interstitial septal thickening in both lung bases. There is small pericardial effusion. A 1.8 cm cyst is noted in the liver. The gallbladder is surgically absent. The pancreas, spleen, kidneys and adrenals are unremarkable. A moderate-sized hiatal hernia is present. No evidence of bowel obstruction. The appendix is not visualized. There are occasional colonic diverticula without evidence of diverticulitis. There is no mesenteric or retroperitoneal adenopathy. There is prostatomegaly. The urinary bladder is unremarkable. There is no free fluid or free air. The bones are osteopenic. Degenerative changes are identified in the spine. Impression: No evidence of bowel obstruction, free air or abscess. Other findings as described above. Report Electronically Signed By: Alejandro Child 06/29/2024 2:57:53 AM [EST] Ordering Physician: Date of Service: Procedure(s): Accession Number(s): cc: ~ Gallbladder ultrasound. June 29, 2024 0049 hours Clinical history: elevated liver enzymes Comparison: Reference is made to the prior report dated July 24, 2018. Findings: There is increased echogenicity of the liver. The liver demonstrates heterogeneous echotexture without mass or ductal dilatation. The main portal vein is patent and demonstrates hepatopetal flow. The hepatic veins and inferior vena cava are patent. The gallbladder is surgically absent. No operative bed masses or collections. The common duct is normal in caliber at 4 mm. The pancreas is unremarkable to the extent visualized. No free fluid is demonstrated on the submitted images. Impression: Heterogeneous echotexture and increased echogenicity of the liver. Recommend clinical correlation. Report Electronically Signed By: Alejandro Child 06/29/2024 2:31:44 AM [EST] <Cyndee Cannon - Last Filed: 06/29/24 17:47> Addendum Narrative: 0600: Care assumed from Dr. Valdez (emergency physician). Past medical, surgical, social and family history reviewed. Vitals and home medications reviewed. Results and treatment plan discussed. I will assume the care of the patient at this time and will follow the patient, pending MRI of thoriacic spine and lumbar spine. 1047: I evaluated the MRI lumbar and results found acute fracture L1 vertebral body and depression superior endplate. Recommendation of further diagnostic imaging of CT lumbar spine was made. Pending CT lumbar spine results. Patient was notified of findings and further diagnostic imagining orders. Was notified by director of social work that PT is requesting a TLSO brace for L1 compression fracture prior to evaluation. They have requested a TLSO prescription ordered, which has been completed. 1800: Patient signed out to Dr. Ellis, pending TLSO brace for PT evaluation. RADIOLOGY Ordering Physician: Riley Cavazos MD Date of Service: 06/29/24 Procedure(s): CT lumbar spine wo con Accession Number(s): [id number] cc: Riley Cavazos MD; Rusty Jimenez MD; Amy Terrazas MD~ Examination: CT lumbar spine, without contrast. 2-D sagittal reconstructions. 2-D coronal reconstructions. 3-D reconstructions. Date and time of exam:June 29, 2024 at 1118 hours INDICATIONS: Patient fell today with injury to lower back, lower back pain CTDI: vol (mGy):21.5 DLP: (mGycm):784 Technique: Multiple 1.25 mm axial sections of the lumbar spine without intravenous contrast have been obtained. 2-D sagittal and coronal reconstructions have been obtained. 3-D reconstructions have been obtained. Low dose protocols were performed. One or more of the following dose reduction techniques were used; automated exposure control, adjustment of the mA and/or KV according to patient size, use of iterative reconstruction technique. Findings: Acute fracture of L1 vertebral body, depression superior endplate, reduction in height 10% No retropulsion of this vertebral body The pedicles and lamina in transverse posterior spinous processes are intact Significant disc narrowing L5-S1 IMPRESSION: Mild acute fracture L1 vertebral body with satisfactory alignment Dictated By: Rusty Jimenez MD Signed By: <Electronically signed by Rusty Jimenez MD in OV> 06/29/24 1133 === Ordering Physician: Petey Valdez MD Date of Service: 06/29/24 Procedure(s): MR lumbar spine wo [facility] Accession Number(s): [id number] cc: Petey Valdez MD; Rusty Jimenez MD; Amy Terrazas MD~ Examination: MRI lumbar spine without contrast Date and time of exam: June 29, 2024 0901 hours INDICATIONS: Patient fell yesterday with injury to the lower back, lower back pain. Technique: Multiple MRI axial and sagittal sections lumbar spine. Sagittal T2-weighted images, TR 3500, TE 118 T1 weighted transverse sections, TR 688 T8.5, T2-weighted sagittal sections T1 weighted sagittal sections TR 621, TE 30 T2 axial sections, TR 4, 190, TE 84. Findings: Acute fracture L1 vertebral body, depression superior endplate, reduction in height 20% Adequate alignment of this lumbar vertebral body Advanced disc narrowing L5-S1 L5-S1 2 mm central lumbar disc bulge L4-L5 5 mm right paracentral disc bulge L3-L4 2 mm central lumbar disc L2-L3 no disc protrusion L1-L2 no disc protrusion IMPRESSION: Consider CT scan lumbar spine follow-up to assess stability of acute fracture L1 vertebral body Dictated By: Rusty Jimenez MD Signed By: <Electronically signed by Rusty Jimenez MD in OV> 06/29/24 0928 Ordering Physician: Petey Valdez MD Date of Service: 06/29/24 Procedure(s): MR thoracic spine wo con Accession Number(s): [id number] cc: Petey Valdez MD; Rusty Jimenez MD; Amy Terrazas MD~ Examination: MRI thoracic spine without contrast. Date and time of exam: June 29, 2024 0827 hours INDICATIONS: Patient fell yesterday with injury to the back, back pain Technique: Multiple sagittal and axial images of the thoracic spine have been obtained. T1 weighted localizer, sagittal T2 weighted images, TR 30-50, TE 148, T1 weighted sagittal images, TR 650, TE 14, T2-weighted transverse images, TR 6770, TE 142 Findings: Adequate alignment thoracic vertebral bodies on the lateral view No acute thoracic fracture Diffuse thoracic disc narrowing, mild to moderate Diffuse thoracic disc desiccation No localized enlargement thoracic cord Axial images demonstrate no focal disc protrusion impinging upon the thoracic cord Acute appearing fracture depression superior endplate L1 IMPRESSION: Diffuse igia-ci-yjeudjnm thoracic degenerative disc disease No acute thoracic fracture No focal thoracic disc protrusion impinging upon the thoracic cord Impression: Recommend CT scan lumbar spine follow-up to confirm acute compression fracture L1 vertebral body Dictated By: Rusty Jimenez MD Signed By: <Electronically signed by Rusty Jimenez MD in OV> 06/29/24 0921 Ordering Physician: Petey Valdez MD Date of Service: 06/28/24 Procedure(s): CT cervical spine wo con Accession Number(s): [id number] cc: Petey Valdez MD; Rusty Jimenez MD~ Examination: CT cervical spine without contrast 2-D sagittal reconstructions 2-D coronal reconstructions 3-D reconstructions. Exam date and time:June 28, 2024 2158 hours INDICATIONS: Neck pain with bilateral leg weakness today CTDI:vol (mGy) 7.57 DLP: (mGycm) 1212 Technique: Multiple 2 mm axial sections of the cervical spine have been obtained. The coronal and sagittal reconstructions have been obtained. 3-D reconstructions have been obtained. Low dose protocols were performed. One or more of the following dose reduction techniques were used; automated exposure control, adjustment of the mA and/or KV according to patient size, use of iterative reconstruction technique. Findings: Axial sections demonstrate intact base of the skull. C1 exhibit satisfactory relationship to the odontoid. No acute cervical vertebral body fracture seen. Alignment posterior spinous processes satisfactory. Advanced degenerative disc disease C3-C4, C4-C5 Impression: No acute cervical fracture. Advanced degenerative disc disease C3-C4, C4-C5 C3-C4, C4-C5 advanced bilateral neural foraminal stenosis Dictated By: Rusty Jimenez MD Signed By: <Electronically signed by Rusty Jimenez MD in OV> 06/28/242256 Ordering Physician: Petey Valdez MD Date of Service: 06/28/24 Procedure(s): XR chest 1V Accession Number(s): [id number] cc: Petey Valdez MD; Rusty Jimenez MD~ Examination: AP chest single view Technique one AP portable semiupright chest single view Date and time: June 28, 2024 2130 hours Comparison October 11, 2020 INDICATIONS: Weakness today. FINDINGS: Normal heart size Moderate vascular congestion No gerald lobar pneumonia Prominent osteopenia IMPRESSION: Moderate vascular congestion Dictated By: Rusty Jimenez MD Signed By: <Electronically signed by Rusty Jimenez MD in OV> 06/28/242152 ====== Ordering Physician: Petey Valdez MD Date of Service: 06/28/24 Procedure(s): CT head/brain wo con Accession Number(s): [id number] cc: Petey Vadlez MD; Rusty Jimenez MD~ Examination: CT brain head without contrast. 2-D sagittal coronal reconstructions Date and time of exam:June 28, 2024 2158 hours INDICATIONS: Headaches and leg weakness today CTDI: vol (mGy):7.57 DLP: (mGycm):1212 Technique: Multiple CT axial sections of the brain have been obtained, 5 mm slice thickness. Contrast has not been administered. 2-D sagittal, coronal reconstructions have been obtained Low dose protocols were performed. One or more of the following dose reduction techniques were used; automated exposure control, adjustment of the mA and/or KV according to patient size, use of iterative reconstruction technique. Findings: No significant ventricular enlargement. 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 No mass effect or midline shift Basal cisterns are not remarkable. Fourth ventricle is midline. Cranial vault intact. Acute sphenoid and ethmoid sinusitis, chronic maxillary sinusitis Impression: Negative for acute hemorrhage, mass effect or midline shift Is clinically warranted, brain MRI follow-up would best assess for acute ischemic change Dictated By: Rusty Jimenez MD Signed By: <Electronically signed by Rusty Jimenez MD in OV> 06/28/24 2662 Ordering Physician: Date of Service: Procedure(s): Accession Number(s): cc: ~ CT scan of the abdomen and pelvis with intravenous contrast (axial sections with sagittal and coronal reformats) June 29, 2024 0159 hours Clinical History: abdominal pain, elevated bilirubin Comparison: Correlated with the prior US study performed earlier today. Findings: Bibasilar dependent atelectasis is present. There is interstitial septal thickening in both lung bases. There is small pericardial effusion. A 1.8 cm cyst is noted in the liver. The gallbladder is surgically absent. The pancreas, spleen, kidneys and adrenals are unremarkable. A moderate-sized hiatal hernia is present. No evidence of bowel obstruction. The appendix is not visualized. There are occasional colonic diverticula without evidence of diverticulitis. There is no mesenteric or retroperitoneal adenopathy. There is prostatomegaly. The urinary bladder is unremarkable. There is no free fluid or free air. The bones are osteopenic. Degenerative changes are identified in the spine. Impression: No evidence of bowel obstruction, free air or abscess. Other findings as described above. Report Electronically Signed By: Alejandro Child 06/29/2024 2:57:53 AM [EST] Ordering Physician: Date of Service: Procedure(s): Accession Number(s): cc: ~ Gallbladder ultrasound. June 29, 2024 0049 hours Clinical history: elevated liver enzymes Comparison: Reference is made to the prior report dated July 24, 2018. Findings: There is increased echogenicity of the liver. The liver demonstrates heterogeneous echotexture without mass or ductal dilatation. The main portal vein is patent and demonstrates hepatopetal flow. The hepatic veins and inferior vena cava are patent. The gallbladder is surgically absent. No operative bed masses or collections. The common duct is normal in caliber at 4 mm. The pancreas is unremarkable to the extent visualized. No free fluid is demonstrated on the submitted images. Impression: Heterogeneous echotexture and increased echogenicity of the liver. Recommend clinical correlation. Report Electronically Signed By: Alejandro Child 06/29/2024 2:31:44 AM [EST]
--- NOTE | 2024-06-29 07:52 | PC.NURSE ---
PT RESTING IN BED AT THIS TIME. PT STATES THAT HE CAME IN FOR BACK PAIN AFTER FALL. NO LOC. PT AWAITING MRI AT THIS TIME. PT IN POC. CALL LIGHT WITHIN REACH
--- NOTE | 2024-06-29 10:49 | XR_ITS ---
Examination: CT lumbar spine, without contrast. 2-D sagittal reconstructions. 2-D coronal reconstructions. 3-D reconstructions. Date and time of exam:June 29, 2024 at 1118 hours INDICATIONS: Patient fell today with injury to lower back, lower back pain CTDI: vol (mGy):21.5 DLP: (mGycm):784 Technique: Multiple 1.25 mm axial sections of the lumbar spine without intravenous contrast have been obtained. 2-D sagittal and coronal reconstructions have been obtained. 3-D reconstructions have been obtained. Low dose protocols were performed. One or more of the following dose reduction techniques were used; automated exposure control, adjustment of the mA and/or KV according to patient size, use of iterative reconstruction technique. Findings: Acute fracture of L1 vertebral body, depression superior endplate, reduction in height 10% No retropulsion of this vertebral body The pedicles and lamina in transverse posterior spinous processes are intact Significant disc narrowing L5-S1 IMPRESSION: Mild acute fracture L1 vertebral body with satisfactory alignment
[2024-06-29] MEDS: PANTOPRAZOLE INJ 40 MG VIAL IVP (11:46)
--- NOTE | 2024-06-29 13:58 | PC.CC ---
Per Dr. Cavazos, patient has an acute L1 fracutre. He requested PT to evaluate patient. SW contacted Pt and spoke to Aysha who recommended that patient obtain a TLSO brace prior to evaluation. MARC completed referral for TLSO brace through [facility]. When PT is completed, SS will be able to complete a safe discharge plan.
--- NOTE | 2024-06-29 14:00 | PC.NURSE ---
pt incontinent of urine. pt cleaned up and new brief applied
--- NOTE | 2024-06-29 16:45 | PC.NURSE ---
pt had rectal temp of 100.9 [address] tachy at 117[address] Dr wood informed. per Dr. Wood no sepsis alert needed to be called. awaiting new orders at this time
[2024-06-29] MEDS: SODIUM CHLORIDE 0.9% 1000 ML 1,000 ML 999 ML IV (17:23)
--- NOTE | 2024-06-29 17:23 | XR_ITS ---
Examination: AP chest single view Technique one AP portable semiupright chest single view Exam date and time: 06/29/2024 at 1738 hours Comparison June 28 June 28, 2024 INDICATION: Chest pain and fever being in 2 days ago FINDINGS: Opacity left base and lingular segment consistent with pneumonia Mild enlargement left atrium and left ventricle Moderate vascular congestion Severe osteopenia IMPRESSION: Recommend lateral chest view follow-up to confirm pneumonia in the lingular segment left upper lobe and left base
--- NOTE | 2024-06-29 18:00 | PC.NURSE ---
food tray at bedside
[2024-06-29] MEDS: cefTRIAXone 2 GM in SODIUM CHLORIDE 0.9% (Popper) 50 ML IV (18:11)
[2024-06-29] MEDS: ACETAMINOPHEN 325 MG TABLET 650 MG PO (18:12)
[2024-06-29 18:21] LABS: Basophils % (Auto) 0 % (0-2.5); Eosinophils % (Auto) 0 % (0-10); Hematocrit 32.4 % (41.0-53.0); Hemoglobin 11.8 g/dL (13.5-16.0); Immature Granulocytes % (Auto) 2 % (0-0); Immature Granulocytes Auto 0.15 Thou/mm3 (0.00-0.00); Lymphocytes # (Auto) 0.7 Thou/mm3 (1.0-4.8); Lymphocytes % (Auto) 6 % (10-50); Mean Corpuscular HGB Conc 36.4 g/dl (31.0-37.0); Mean Corpuscular Hemoglobin 31.7 pg (25.0-35.0); Mean Corpuscular Volume 87 fL (80-100); Monocytes # (Auto) 1.1 Thou/mm3 (0.0-0.8); Monocytes % (Auto) 11 % (0-12); Neutrophils # (Auto) 8.3 Thou/mm3 (1.8-7.7); Neutrophils % (Auto) 81 % (37-80); Nucleated Red Blood Cell % 0 /100 WBC (0); Platelet Count 220 Thou/mm3 (140-440); RDW Standard Deviation 40.6 fL (35.1-43.9); Red Blood Count 3.72 Miln/mm3 (4.50-5.90); White Blood Count 10.2 Thou/mm3 (3.8-10.6)
--- NOTE | 2024-06-29 18:24 | PD.EDADDENDU ---
Emergency Room Addendum <Jamaica Babcock - Last Filed: 06/29/24 23:28> Addendum Narrative: I took over the care from previous shift physician at 1800 on 06/29/2024. See previous notes for complete H & P and ED course. I reviewed all diagnostic test results. My interpretation of the chest x-ray is recommend lateral chest view follow-up to confirm pneumonia in the lingular segment left upper lobe and left base. My review of the Lumbar CT report is mild acute fracture L1 vertebral body with satisfactory alignment. My review of the Gallbladder US is limited study, lack of patient cooperation. No diagnostic visualization gallbladder. Common bile duct 0.4 cm no stones noted. My review of the T-spine MRI is diffuse [id number] thoracic degenerative disc disease. No acute thoracic fracture. No focal thoracic disc protrusion impinging upon the thoracic cord. Recommend CT scan lumbar spine follow-up to confirm acute compression fracture L1 vertebral body. My review of the L-spine MRI is consider CT scan lumbar spine follow-up to assess stability of acute fracture L1 vertebral body. Blood tests and urine tests Diagnoses include: Treatment here included Rocephin, Sodium Chloride (Ns), Protonix, Tylenol, Azithromycin. Not yet done: I discussed the case with our hospitalist. About the presentation and exam and diagnostics and treatments here. And need of further care in the hospital. Will accept the patient. Not yet done: Based on my best medical judgment, made decision no further evaluation or treatment indicated at this time. Patient understands and agrees to the discharge instructions customized and printed, see below. Janes Ellis MD <Janes Ellis MD - Last Filed: 06/30/24 04:54> Addendum Narrative: I took over the care from previous shift physician (Dr. Cavazos) at 1800 on 06/29/2024. See previous notes for complete H & P and ED course. Patient is waiting for NH placement. Chest x-ray shows probable pneumonia. I added oral Zithromax 500 mg daily to the treatment plan. At 5 AM on 06/30/2024, I was informed of 100.6 ?F fever. Ordered IV fluid and antipyretics and sepsis workup. At 6 AM on 06/30/2024, the care of the patient was transferred to Dr. Cavazos. Janes Ellis MD
[2024-06-29 18:38] LABS: Alanine Aminotransferase 31 U/L (10-49); Albumin, Serum 3.7 gm/dL (3.4-4.8); Albumin/Globulin Ratio 1.3 (1.2-2.2); Alkaline Phosphatase 100 U/L (46-116); Anion Gap 13 (7-16); Aspartate Amino Transferase 30 U/L (0-34); BUN/Creatinine Ratio 19 Ratio (12-20); Bilirubin,Total 1.8 mg/dL (0.3-1.2); Blood Urea Nitrogen 13 mg/dL (9-23); Calcium 8.3 mg/dL (8.3-10.6); Calcium (Corrected) 8.5 mg/dL (8.5-10.1); Carbon Dioxide 21.5 mMol/L (20.0-31.0); Chloride 104 mMol/L (98-107); Creatinine (Component) 0.7 mg/dL (0.6-1.3); Estimated Creatinine Clearance 85.6 mL/min (>60); Globulin 2.9 gm/dL (2.3-3.5); Glucose 96 mg/dL (74-106); Osmolality,Calculated 275 (275-295); Potassium 3.2 mMol/L (3.4-5.1); Sodium 138 mMol/L (136-145); Total Protein 6.6 gm/dL (5.7-8.2); eGFR > 60 See Note
--- NOTE | 2024-06-29 20:00 | PC.NURSE ---
Pt resting with eyes closed, respirations are even and unlabored. No s/s of acute distress noted. Call light within reach, plan of care ongoing.
[2024-06-30] VITALS (18 sets, daily range): BP systolic 153–192; BP diastolic 67–101; PULSE 96–116; RESP 15–20; TEMP 36.1–38.1; O2SAT 92–95; BMI 24.3
--- NOTE | 2024-06-30 03:00 | PC.NURSE ---
At this time, bed linens changed and pillow given to pt. Pt able to reposition self in bed. All belongings and call light within reach. No s/s of acute distress noted, plan of care ongoing.
--- NOTE | 2024-06-30 04:50 | PC.NURSE ---
Dr. Ellis made aware of oral temp 100.6 and BP 179/83, no new order received at this time.
[2024-06-30] MEDS: IBUPROFEN TAB 400 MG TABLET PO (05:44)
[2024-06-30] MEDS: ACETAMINOPHEN 500 MG TABLET 1000 MG PO (05:49)
--- NOTE | 2024-06-30 06:25 | PD.EDADDENDU ---
Emergency Room Addendum Addendum Narrative: 0600: Care assumed from Dr. Ellis, the previous shift emergency physician. Past medical, surgical, social and family history reviewed. Vitals and home medications reviewed. I will assume the care of the patient at this time, pending SNF placement. Please refer to the emergency department record for history and examination from initial visit.? The patient was placed in ED observation care at 06/30/2024 at 0600 hours. The patient was placed in ED observation care pending SNF placement. The patients past medical history, social history, and family history were reviewed. The plan of care will include serial examinations. While in ED observation the patient will have access to water, food, and personal hygiene. If the patient takes home medication(s), they will be continued in ED observation. Physical exam by me shows patient under no acute distress at this time. 0900: Discussed test HPI, PMHx, lab, radiology results and/or management with hospitalist. Will admit for further evaluation and management. Accepts patient for admission. My ED observation care ended at 06/30/2024 at 0900 hours. Diagnoses: -Acute pneumonia -Acute fever -Tachycardia -Compression fracture, L1, acute
--- NOTE | 2024-06-30 07:42 | PC.NURSE ---
PATIENT RESTING IN BED, RESP EVEN UNLABORED. I OFFERED TO REPOSITION PATIENT BUT HE STATES HE IS COMFORTABLE RIGHT NOW. AT THIS TIME PT STATES PAIN IS MINIMAL. RATES PAIN 3/10 WHEN RESTING. I ASK PT IF HE WOULD LIKE SOMETHING FOR PAIN, HE STATES HE IS FINE RIGHT NOW. CALL LIGHT IN REACH. PT UPDATED ON PLAN OF CARE. AWAITING FOR TSLO BRACE TO BE DELIVERED TODAY SO PT CAN DO PT EVAL FOR POSSIBLE PLACEMENT TO [facility].
[2024-06-30] MEDS: AZITHROMYCIN 250 MG TABLET 500 MG PO (08:37)
[2024-06-30] MEDS: SODIUM CHLORIDE 0.9% 1000 ML 1,000 ML 100 ML IV ×2 (08:39→18:06)
--- NOTE | 2024-06-30 08:40 | PC.NURSE ---
PATIENT UPDATED ON PLAN OF CARE. INFORMED THAT THE TLSO BRACE SHOULD BE DELIVERED TODAY BUT THE PHYSICAL THERAPIST WONT BE IN TILL TOMORROW. PT VERBALIZED UNDERSTANDING. DUE TO THE PERSISTENT TACHYCARDIA IVF WERE STARTED AND ABX CONTINUE TO PNEUMONIA. FAMILY AT BEDSIDE.
[2024-06-30] MEDS: cefTRIAXone 2 GM in SODIUM CHLORIDE 0.9% (Popper) 50 ML IV (08:43)
--- NOTE | 2024-06-30 09:04 | PC.LAC ---
MD WENT IN TO SPEAK WITH PT, STATES THEY WILL ADMIT PATIENT DUE TO THE PERSISTENT TACHYCARDIA AND LOW GRADE FEVER.
--- NOTE | 2024-06-30 09:28 | ESHP_ITS ---
Documentation for date of: 06/30/24 HPI History of Present Illness Chief complaint: Low back pain History of present illness: 78-year-old male with past medical history of insulin-dependent type 2 diabetes (although A1c have been in the 5's), hypertension, GERD, depression presenting to the ED initially on 06/28 for a ground-level fall. Per patient, he did not lose consciousness during the episode and did not hit his head anywhere. Next to the patient is a family friend who corroborated the story. Apparently the patient has been feeling weak and while watching television rolled over the sofa and fell on his left side. Patient has been in the ED since 06/28 and has had mo CT scan which was largely negative other than an L1 compression fraction with 10% height reduction. During his stay in the emergency room, patient developed tachycardia and there was signs of sepsis with some endorgan dysfunction noted with elevated T bilirubin and lactic acidosis. Chest x-ray also shows signs of pneumonia; moreover, patient on examination does not have a cough but does state that he feels short of breath on room air. Medical history: As stated above Surgical history: Denies Allergies: NKDA Medications: Pending official med rec Family history: Noncontributory Social history: Denies any tobacco, alcohol or illicit drug use. Patient lives in [place] with family members. ROS: All 12 systems assessed and the patient denies unless otherwise stated in HPI. Patient will be admitted for community-acquired pneumonia started on IV antibiotics. Exam Vital Signs Temp Pulse Resp BP Pulse Ox O2 Del Method 98.4 F 111 H 19 163/67 H 94 L Room Air 06/30/24 08:00 06/30/24 08:00 06/30/24 08:00 06/30/24 08:00 06/30/24 08:00 06/30/24 08:00 Narrative Exam Physical Exam: GENERAL: Awake, answering questions appropriately but slowly, appears stated age HEENT: NC/AT. Moist mucosa. PERRLA/EOMI. CARDIO: Heart RRR, no obvious murmurs, no JVD. PULM: No coughing or visible SOB. Lungs CTA B/L. GI: Abdomen soft, NT/ND, +BS. SKIN/MSK/EXT: No wounds/discoloration/rashes/edema/amputations. +Pedal pulses present B/L. NEURO: Oriented x3, Moves extremities x4, no focal neurologic deficits noted Results: Labs 07/01/24 05:37 07/01/24 05:37 Labs: Short CBC 06/29/24 Range/Units 18:00 WBC 10.2 (3.8-10.6) Thou/mm3 Hgb 11.8 L (13.5-16.0) g/dL Hct 32.4 L (41.0-53.0) % Plt Count 220 (140-440) Thou/mm3 BMP 06/29/24 18:00 Sodium 138 Potassium 3.2 L D Chloride 104 Carbon Dioxide 21.5 BUN 13 Creatinine 0.7 Glucose 96 Calcium 8.3 Liver Function 06/29/24 Range/Units 18:00 Total Bilirubin 1.8 H D (0.3-1.2) mg/dL AST 30 (0-34) U/L ALT 31 (10-49) U/L Alkaline Phosphatase 100 (46-116) U/L Albumin 3.7 D (3.4-4.8) gm/dL Quality Measures Quality Measures none Advance care planning discussed with:: patient Medications Home Medications and Allergies Home Medications ?Medication ?Instructions ?Recorded ?Confirmed ?Type paroxetine HCl 40 mg tablet (Paxil) 40 mg PO QAM #0 ta bs 07/02/13 07/24/18 History omeprazole 20 mg capsule,delayed 20 mg PO QDAY 9 07/24/18 History release pioglitazone 30 mg tablet 30 mg PO QDAY 07/24/1807/24 History sitagliptin phosphate 100 mg 100 mg PO DAILY 07/24/18 07/24/18 History tablet (Januvia) Allergies Allergy/AdvReac Type Severity Reaction Status Date / Time NKA* Allergy Uncoded 10/02/16 15:04 Visit Medications Acetaminophen (Acetaminophen 325 Mg Tablet) 650 mg PO Q6H PRN PRN Reason: Pain 1-3 and/or Fever >100.1 Stop: 07/30/24 09:23 Azithromycin (Azithromycin 250 Mg Tablet) 500 mg PO DAILY BRIDGET Stop: 07/07/24 08:59 Last Admin: 06/30/24 08:37 Dose: 500 mg Heparin Sodium (Porcine) (Heparin Sod Inj 5000 Unit/Ml Vial) 5,000 unit SC Q12HR BRIDGET Stop: 07/14/24 20:59 Ceftriaxone Sodium 2 gm/ (Sodium Chloride) 50 mls @ 100 mls/hr IV QDAY [facility] Stop: 07/06/24 17:25 Last Admin: 06/30/24 08:43 Dose: 100 mls/hr Sodium Chloride (Ns) 1,000 mls @ 100 mls/hr IV .Q10H BRIDGET Stop: 07/30/24 08:14 Last Admin: 06/30/24 08:39 Dose: 100 mls/hr Ondansetron HCl (Ondansetron Inj 2 Mg/Ml Inj 2 Ml) 4 mg IV Q6H PRN; Protocol PRN Reason: NAUSEA OR VOMITING Stop: 07/30/24 09:23 Sennosides (Senna Tablet) 1 tab PO QDAY [facility]; Protocol Stop: 07/31/24 08:59 Sodium Chloride (Sodium Chloride Rt 10% 15 Ml Nebu) 5 ml INH PRN PRN PRN Reason: SPUTUM INDUCTION Stop: 07/30/24 09:23 Discontinued Medications Acetaminophen (Acetaminophen 325 Mg Tablet) 650 mg PO X1 ONE Stop: 06/29/24 17:24 Last Admin: 06/29/24 18:12 Dose: 650 mg Acetaminophen (Acetaminophen 325 Mg Tablet) 1,000 mg PO X1 ONE Stop: 06/30/24 04:58 Last Admin: 06/30/24 05:49 Dose: Not Given Acetaminophen (Acetaminophen 500 Mg Tablet) 1,000 mg PO X1 ONE Stop: 06/30/24 05:46 Last Admin: 06/30/24 05:49 Dose: 1,000 mg Sodium Chloride (Ns) 1,000 mls @ 999 mls/hr IV .Q1H1M ONE Stop: 06/28/24 20:43 Last Infusion: 06/28/24 22:18 Dose: Infused Sodium Chloride (Ns) 1,000 mls @ 999 mls/hr IV .Q1H1M ONE Stop: 06/29/24 00:27 Last Infusion: 06/29/24 00:33 Dose: Infused Sodium Chloride (Ns) 1,000 mls @ 999 mls/hr IV .Q1H1M ONE Stop: 06/29/24 18:23 Last Infusion: 06/29/24 22:50 Dose: Infused Ibuprofen (Ibuprofen Tab 400 Mg Tablet) 400 mg PO X1 ONE Stop: 06/30/24 04:58 Last Admin: 06/30/24 05:44 Dose: 400 mg Pantoprazole Sodium (Pantoprazole 20 Mg Tablet) 20 mg PO X1 ONE Stop: 06/29/24 10:52 Last Admin: 06/29/24 11:46 Dose: Not Given Pantoprazole Sodium (Pantoprazole Inj 40 Mg Vial) 40 mg IVP X1 ONE Stop: 06/29/24 11:10 Last Admin: 06/29/24 11:46 Dose: 40 mg Assessment & Plan Plan 78-year-old male with past medical history of insulin-dependent type 2 diabetes (although A1c have been in the 5's), hypertension, GERD, depression presenting to the ED initially on 06/28 for a ground-level fall but later found to have pneumonia; will be admitted for community-acquired pneumonia started on IV antibiotics. #Sepsis #Community-acquired pneumonia Patient has been in the emergency room since 06/28 for a ground-level fall; status post mo CT scan which only showed L1 compression fraction Since that time, patient has developed tachycardia and met sepsis criteria with endorgan dysfunction including lactic acidosis and elevated T bilirubin Chest x-ray shows opacity in the left base in the lingular segment consistent with pneumonia, moderate vascular congestion Patient has a WBC count of 10.2 and COVID-negative On room air, satting between 94 and 96% without any productive cough noted In the ED, patient was given 2 g of ceftriaxone along with 500 mg of azithromycin Blood cultures ordered in the ED; 1 bottle positive for GPC (likely contamination) Plan: Continue IV ceftriaxone 2 g daily along with IV doxycycline 100 BID RSV and influenza A/B ordered Sputum cultures ordered Repeat blood cultures ordered #Ground-level fall #L1 compression fracture #Degenerative disc disease Per HPI above, patient had a ground-level fall which was not witnessed but the patient is able to recall exactly what occurred Patient has been in the ED since 06/28 and has had mo CT scan Cervical spine CT showed no acute fracture there was some DDD from C3-C4 and C4- C5. 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 right cerebellar hemisphere Lumbar spine MRI confirmed L1 acute fracture of the thoracic spine showed 10% height reduction of L1 Plan: Multimodal pain management Lumbar brace to be ordered Follow-up with orthopedic surgery outpatient #Normocytic anemia Differentials include anemia of chronic disease, iron deficiency anemia, vitamin deficiency, hemolytic anemia; less likely to be bone marrow suppression Plan: Follow-up on iron panel, ferritin and reticulocyte count Peripheral smear #Elevated bilirubin, downtrending CT abdomen pelvis showed a common bile duct 10 mm with mild dilation of the pancreatic duct Patient denies having any pelvic pain on exam Gallbladder ultrasound shows common bile duct 0.4 cm with no stones Plan: Will continue monitor for any acute changes #Prediabetes Patient apparently on metformin 500 mg p.o. twice daily, pioglitazone 30 mg p.o. daily and Januvia 100 mg p.o. daily Patient also apparently takes 15 units of insulin glargine in the morning A1c on file have on been around the high fives medication Unsure exactly when the patient is on all these medications; family friend bedside was not able to provide much reasoning Plan: Sliding scale insulin #Hypertension Patient apparently on ramipril 10 mg p.o. daily Plan: Will start lisinopril 20 mg #GERD #Depression Patient is on omeprazole 20 mg p.o. daily for GERD, paroxetine 40 mg p.o. every morning for depression Plan: Pending official med rec, will restart home medications Hospital Management: Lines: PIV Diet: Carb consistent low Bowel: Senna GI prophylaxis: Not needed DVT prophylaxis: Heparin subcu Dispo: IV antibiotics for community-acquired pneumonia Patient seen and examined with attending Dr. Delbert Alvarez, PGY-1 Attending Provider Attestation/Addendum Juana, Vero Mandujano DO, attest that I was physically present for the scherer portions of the service and evaluated the patient with the resident and I reviewed and discussed the case with the resident and agree with the resident's findings and plans of care as documented above Patient is a 78-year-old male with past medical history of type 2 diabetes, hypertension, GERD and depression who was brought to the ED after sustaining a ground-level fall. Patient denies having loss consciousness or any head trauma. History obtained from chart review and ER report as patient does not want to elaborate how he fell. He is otherwise alert and oriented x 4. Patient had fallen off the couch from generalized weakness and subsequently brought to the ED. CT abdomen pelvis was initially done showing possible dilatation of the CBD and pancreatic duct was a followed up with gallbladder ultrasound showing no dilatation of CBD. Lumbar spine MRI and thoracic spine MRI were done showing an acute compression fracture of L1 vertebral body. This was confirmed firmed on CT lumbar spine which showed a mild acute fracture. Patient had been pending fdc placement and a TLSO brace had been ordered. However, patient developed fever and tachycardia in the ED. A chest x-ray had been done showing concern for pneumonia in the left base of the lung. Will admit patient for further workup and medical management of sepsis secondary to community-acquired pneumonia. He is noted to have elevated bilirubin of 2.3 on presentation. Will start IV antibiotics with doxycycline and Rocephin, as well as IV fluids as patient appears to be dehydrated. Will order physical therapy to further assess patient's functional status.
--- NOTE | 2024-06-30 10:00 | PC.CC ---
ANITHA Nieto attempted to completed a face to face initial assessment for the pt at bedside in ER #[id number]. Pt was alert and oriented to place and time. Pt reports he resides at [place] [employer] [employer] [facility] [employer], alone, and does have several people who occasionally care for him when need be. Pt provided the following names of the people who check in and care for him occasionally: Mavis Chiang [phone], Daisy Parekh [phone], Mana [phone]. Pt reports he does not use any DME at home and does his own ADLs. However, during the assessment, pt was unable to complete the remainder of the assessment, as he became confused. Therefore, SS will need to finish the initial assessment.
--- NOTE | 2024-06-30 12:00 | PC.NURSE ---
Pt verbalized does not know home medications, pt point of contact at bedside and verbalized does not have list or access to bottles of home medications.
[2024-06-30] MEDS: Lisinopril 2.5 MG TABLET 10 MG PO ×2 (13:42→16:32)
[2024-06-30 17:37] LABS: Respiratory Syncytial Virus Ag Negative (Negative)
--- NOTE | 2024-06-30 18:01 | PC.NURSE ---
Dr. Laboy notified of pt gargling with dinner and coughing, assessed pt swallowing at bedside with tea from tray and pt had no difficulty. Dr. Laboy verbalized will discuss with night team if speech evaluation needs to be ordered.
[2024-06-30 20:27] LABS: Influenza A Ag Negative; Influenza B Ag Negative
[2024-06-30] MEDS: DOXYCYCLINE INJ 100 MG in SODIUM CHLORIDE 0.9% (POP) 100 ML IV (20:53)
[2024-06-30] MEDS: HEPARIN SOD INJ 5000 UNIT/ML VIAL SC (21:05)
[2024-06-30] MEDS: LABETALOL INJ 5 MG/ML VIAL 20 ML 10 MG IVP (22:05)
[2024-06-30] MEDS: POTASSIUM CHLORIDE 20 mEq TABCR 40 MEQ PO (22:09)
[2024-07-01] VITALS (15 sets, daily range): BP systolic 148–192; BP diastolic 73–102; PULSE 93–115; RESP 16–21; TEMP 36.2–36.8; O2SAT 82–997; BMI 13.0
[2024-07-01] MEDS: SODIUM CHLORIDE 0.9% 1000 ML 1,000 ML 100 ML IV ×2 (04:47→16:54)
--- NOTE | 2024-07-01 04:52 | PC.NURSE ---
97% O2 sat on room air, pt awake. Incontinent - connected to external urinary catheter and connected to wall suction.
[2024-07-01 06:04] LABS: Basophils % (Auto) 0 % (0-2.5); Eosinophils # (Auto) 0.1 Thou/mm3 (0.0-0.5); Eosinophils % (Auto) 1 % (0-10); Hematocrit 35.3 % (41.0-53.0); Hemoglobin 12.2 g/dL (13.5-16.0); Immature Granulocytes % (Auto) 4 % (0-0); Immature Granulocytes Auto 0.32 Thou/mm3 (0.00-0.00); Immature Reticulocyte Fraction 17.5 % (2.3-13.4); Lymphocytes # (Auto) 0.9 Thou/mm3 (1.0-4.8); Lymphocytes % (Auto) 12 % (10-50); Mean Corpuscular HGB Conc 34.6 g/dl (31.0-37.0); Mean Corpuscular Hemoglobin 31.5 pg (25.0-35.0); Mean Corpuscular Volume 91 fL (80-100); Monocytes % (Auto) 13 % (0-12); Neutrophils # (Auto) 5.7 Thou/mm3 (1.8-7.7); Neutrophils % (Auto) 71 % (37-80); Nucleated Red Blood Cell % 0 /100 WBC (0); Platelet Count 249 Thou/mm3 (140-440); RDW Standard Deviation 42.3 fL (35.1-43.9); Red Blood Count 3.87 Miln/mm3 (4.50-5.90); Reticulocyte % (Auto) 1.4 % (0.5-1.5); Reticulocyte Hgb Content 31.8 pg (28.0-35.0)
[2024-07-01 06:29] LABS: Alanine Aminotransferase 27 U/L (10-49); Albumin, Serum 3.6 gm/dL (3.4-4.8); Albumin/Globulin Ratio 1.3 (1.2-2.2); Alkaline Phosphatase 97 U/L (46-116); Anion Gap 9 (7-16); Aspartate Amino Transferase 29 U/L (0-34); BUN/Creatinine Ratio 13 Ratio (12-20); Bilirubin,Total 0.7 mg/dL (0.3-1.2); Blood Urea Nitrogen 8 mg/dL (9-23); Calcium 8.1 mg/dL (8.3-10.6); Calcium (Corrected) 8.4 mg/dL (8.5-10.1); Carbon Dioxide 25.6 mMol/L (20.0-31.0); Chloride 105 mMol/L (98-107); Creatinine (Component) 0.6 mg/dL (0.6-1.3); Estimated Creatinine Clearance 103.1 mL/min (>60); Globulin 2.8 gm/dL (2.3-3.5); Glucose 107 mg/dL (74-106); Magnesium 1.3 mg/dL (1.6-2.6); Osmolality,Calculated 277 (275-295); Phosphorous 2.2 mg/dL (2.4-5.1); Sodium 140 mMol/L (136-145); Total Protein 6.4 gm/dL (5.7-8.2); eGFR > 60 See Note
[2024-07-01 06:36] LABS: Path Review Blood Smear Sent to Pathologist
[2024-07-01 06:38] LABS: Ferritin 244 ng/mL (10.5-307.3); Iron 22 mcg/dL (65-175); Percent Iron Saturation 10 % (20-55); Total Iron Binding Capacity 203 mcg/dL (250-425); Unsaturated Iron Binding 181 (225-295)
[2024-07-01] MEDS: cefTRIAXone 2 GM in SODIUM CHLORIDE 0.9% (Popper) 50 ML IV (08:10)
[2024-07-01] MEDS: Magnesium Sulfate 4 GM Ivpb 4 GM/50 ML BAG IV (08:10)
[2024-07-01] MEDS: CALCIUM CARBONATE 600 MG TABLET PO (08:11)
[2024-07-01] MEDS: DOXYCYCLINE INJ 100 MG in SODIUM CHLORIDE 0.9% (POP) 100 ML IV ×2 (08:11→21:56)
[2024-07-01] MEDS: Lisinopril 20 MG TABLET PO (08:11)
[2024-07-01] MEDS: SENNA TABLET 1 TAB PO (08:11)
[2024-07-01] MEDS: POTASSIUM CHLORIDE 20 mEq TABCR 40 MEQ PO (08:12)
[2024-07-01] MEDS: carVEDILOL 3.125 MG TABLET PO (08:12)
[2024-07-01] MEDS: HEPARIN SOD INJ 5000 UNIT/ML VIAL SC ×2 (08:15→21:57)
--- NOTE | 2024-07-01 11:13 | ESPR_ITS ---
Documentation for date of: 07/01/24 Subjective Subjective Interval history: 07/01/2024: Overnight patient had elevated blood pressure with systolic 190 diastolic 99 so and was given x 1 labetalol. Patient seen and examined in hospital bed, appears to be at normal mental baseline. Patient's initial blood culture positive from aerobic bottle for GPC send however, repeat blood culture sent. Patient continues to be on IV antibiotics for pneumonia. Per physical therapy consult, there is some suspicion of Parkinson disease based on shuffling gait and facial masking. Will reassess the patient. Exam Vital Signs Temp Pulse Resp BP Pulse Ox O2 Del Method 97.3 F 95 17 178/89 H 82 L Room Air 07/01/24 08:00 07/01/24 08:12 07/01/24 08:00 07/01/24 08:12 07/01/24 08:00 07/01/24 08:00 Narrative Exam Physical Exam: GENERAL: Awake, answering questions appropriately but slowly, appears stated age HEENT: NC/AT. Moist mucosa. PERRLA/EOMI. CARDIO: Heart RRR, no obvious murmurs, no JVD. PULM: No coughing or visible SOB. Lungs CTA B/L. GI: Abdomen soft, NT/ND, +BS. SKIN/MSK/EXT: No wounds/discoloration/rashes/edema/amputations. +Pedal pulses present B/L. NEURO: Oriented x3, Moves extremities x4, no focal neurologic deficits noted Objective Labs 07/02/24 13:45 07/02/24 13:45 Labs: Laboratory Results - last 24 hr 06/30/24 06/30/24 07/01/24 13:50 16:32 05:37 WBC 8.0 RBC 3.87 L Hgb 12.2 L Hct 35.3 L MCV 91 MCH 31.5 MCHC 34.6 RDW Std Deviation 42.3 Plt Count 249 Neut % (Auto) 71 Lymph % (Auto) 12 [place]house % (Auto) 13 H Eos % (Auto) 1 Baso % (Auto) 0 Neut # (Auto) 5.7 Lymph # (Auto) 0.9 L [place]house # (Auto) 1.0 H Eos # (Auto) 0.1 Baso # (Auto) 0.0 Immature Gran # (Auto) 0.32 H Absolute Nucleated RBC 0.00 Immature Gran % 4 H Nucleated RBC % 0 Smear Path Review Sent to Pathologist Retic Count (auto) 1.4 Absolute Retic 55.0 Immature Retic Fraction 17.5 H Retic Hgb Content CHr 31.8 Sodium 140 Potassium 3.0 L Chloride 105 Carbon Dioxide 25.6 Anion Gap 9 BUN 8 L Creatinine 0.6 Estim Creat Clear Calc 103.1 eGFR > 60 BUN/Creatinine Ratio 13 Glucose 107 H Calculated Osmolality 277 Calcium 8.1 L Corrected Calcium 8.4 L Phosphorus 2.2 L Magnesium 1.3 L Iron 22 L TIBC 203 L Iron Saturation 10 L Unsat Iron Binding 181 L Ferritin 244 Total Bilirubin 0.7 D AST 29 ALT 27 Alkaline Phosphatase 97 Total Protein 6.4 Albumin 3.6 Globulin 2.8 Albumin/Globulin Ratio 1.3 Influenza A (Rapid) Negative Influenza B (Rapid) Negative RSV Rapid Negative Quality Measures Quality Measures none Advance care planning discussed with:: patient Assessment & Plan Assessment Current Active Medications: Generic Name Dose Route Start Last Admin Trade Name Freq PRN Reason Stop Dose Admin Acetaminophen 650 mg 06/30/24 09:24 Acetaminophen 325 Mg Tablet PO 07/30/24 09:23 Q6H PRN Pain 1-3 and/or Fever >100.1 Carvedilol 3.125 mg 07/01/24 08:00 07/01/24 08:12 Carvedilol 3.125 Mg Tablet PO 07/31/24 07:59 3.125 mg BIDWM BRIDGET Administration Dextrose 25 ml 06/30/24 09:30 Dextrose 50%-Water Inj 50 Ml Syringe IV 07/30/24 09:29 Q15MIN PRN BG 50-70 responsive npo pt Dextrose 50 ml 06/30/24 09:30 Dextrose 50%-Water Inj 50 Ml Syringe IV 07/30/24 09:29 Q15MIN PRN BG <50 OR BG <70 & pt unresponsive Glucagon 1 mg 06/30/24 09:30 Glucagon Inj 1 Mg Vial IM Q15MIN PRN BG <70, and no IV access Heparin Sodium (Porcine) 5,000 unit 06/30/24 21:00 07/01/24 08:15 Heparin Sod Inj 5000 Unit/Ml Vial SC 07/14/24 20:59 5,000 unit Q12HR BRIDGET Administration Hydralazine HCl 10 mg 07/01/24 08:05 Hydralazine Inj 20 Mg/Ml Vial IV 07/31/24 08:04 Q6H PRN Systolic >180 and HR <90 Sodium Chloride 1,000 mls @ 100 mls/hr 06/30/24 08:15 07/01/24 04:47 Ns IV 07/30/24 08:14 100 mls/hr .Q10H BRIDGET Administration Doxycycline Hyclate 100 mg/ 100 mls @ 100 mls/hr 06/30/24 21:00 07/01/24 08:11 Sodium Chloride IV 07/07/24 20:59 100 mls/hr BID BRIDGET Administration Magnesium Sulfate 4 gm in 50 mls @ 12.5 mls/hr 07/01/24 07:55 07/01/24 08:10 Magnesium Sulfate Ivpb IV 07/01/24 11:54 12.5 mls/hr X1 ONE Administration Ceftriaxone Sodium/Dextrose 2 gm in 50 mls @ 100 mls/hr 07/02/24 09:00 Rocephin/D5w 2gm IV 07/06/24 17:25 QDAY BRIDGET Insulin Human Lispro 0 unit 06/30/24 11:30 07/01/24 11:04 Insulin Lispro (Admelog) 1 Unit/0.01 Ml Unit SC 07/30/24 11:29 Not Given ACHS [facility] Protocol Lisinopril 20 mg 07/01/24 09:00 07/01/24 08:11 Lisinopril 20 Mg Tablet PO 07/31/24 08:59 20 mg QDAY BRIDGET Administration Ondansetron HCl 4 mg 06/30/24 09:24 Ondansetron Inj 2 Mg/Ml Inj 2 Ml IV 07/30/24 09:23 Q6H PRN NAUSEA OR VOMITING Protocol Sennosides 1 tab 07/01/24 09:00 07/01/24 08:11 Senna Tablet PO 07/31/24 08:59 1 tab QDAY [facility] Administration Protocol Sodium Chloride 5 ml 06/30/24 09:24 Sodium Chloride Rt 10% 15 Ml Nebu INH 07/30/24 09:23 PRN PRN SPUTUM INDUCTION Plan 78-year-old male with past medical history of insulin-dependent type 2 diabetes (although A1c have been in the 5's), hypertension, GERD, depression presenting to the ED initially on 06/28 for a ground-level fall but later found to have pneumonia; will be admitted for community-acquired pneumonia started on IV antibiotics. #Community-acquired pneumonia Patient has been in the emergency room since 06/28 for a ground-level fall; status post mo CT scan which only showed L1 compression fraction Since that time, patient has developed tachycardia and met sepsis criteria with endorgan dysfunction including lactic acidosis and elevated T bilirubin Chest x-ray shows opacity in the left base in the lingular segment consistent with pneumonia, moderate vascular congestion Patient has a WBC count of 10.2 and COVID-negative On room air, satting between 94 and 96% without any productive cough noted In the ED, patient was given 2 g of ceftriaxone along with 500 mg of azithromycin Blood cultures ordered in the ED; 1 bottle positive for GPC (likely contamination) RSV and influenza A/B negative Plan: Continue IV ceftriaxone 2 g daily along with IV doxycycline 100 BID Repeat blood cultures ordered #Ground-level fall #L1 compression fracture #Degenerative disc disease Per HPI above, patient had a ground-level fall which was not witnessed but the patient is able to recall exactly what occurred Patient has been in the ED since 06/28 and has had mo CT scan Cervical spine CT showed no acute fracture there was some DDD from C3-C4 and C4- C5. 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 right cerebellar hemisphere Lumbar spine MRI confirmed L1 acute fracture of the thoracic spine showed 10% height reduction of L1 Plan: Physical therapy consulted, appreciate recommendations Multimodal pain management Lumbar brace to be ordered Follow-up with orthopedic surgery outpatient #Normocytic anemia #Iron deficiency anemia Differentials include anemia of chronic disease, iron deficiency anemia, vitamin deficiency, hemolytic anemia; less likely to be bone marrow suppression Appears to be that the patient has iron deficiency anemia with an iron of 22, TIBC 203, iron saturation 10% and ferritin 244 Plan: Peripheral smear, pending Iron supplementation on outpatient basis #Elevated bilirubin, downtrending CT abdomen pelvis showed a common bile duct 10 mm with mild dilation of the pancreatic duct Patient denies having any pelvic pain on exam Gallbladder ultrasound shows common bile duct 0.4 cm with no stones Plan: Will continue monitor for any acute changes #Prediabetes Patient apparently on metformin 500 mg p.o. twice daily, pioglitazone 30 mg p.o. daily and Januvia 100 mg p.o. daily Patient also apparently takes 15 units of insulin glargine in the morning A1c on file have on been around the high fives medication Unsure exactly when the patient is on all these medications; family friend bedside was not able to provide much reasoning Plan: Sliding scale insulin #Hypertension Patient apparently on ramipril 10 mg p.o. daily Plan: Switched Lisinopril to Losartan 50 Added Coreg 3.125 mg p.o. twice daily later increased to 6.25 mg p.o. twice daily #GERD #Depression Patient is on omeprazole 20 mg p.o. daily for GERD, paroxetine 40 mg p.o. every morning for depression Plan: Pending official med rec, will restart home medications Hospital Management: Lines: PIV Diet: Carb consistent low Bowel: Senna GI prophylaxis: Not needed DVT prophylaxis: Heparin subcu Dispo: IV antibiotics for community-acquired pneumonia Patient seen and examined with attending Dr. Delbert Alvarez, PGY-1 Attending Provider Attestation/Addendum Vero Arias, , attest that I was physically present for the scherer portions of the service and evaluated the patient with the resident and I reviewed and discussed the case with the resident and agree with the resident's findings and plans of care as documented above Patient seen and evaluated this AM. No acute events overnight. Per PT, patient appears to have some parkinsonian symptoms with shuffling gait. Patient has no complaints at this time. Patient will likely need SNF placement. BP remains elevated. Will uptitrate antihypertensives.
--- NOTE | 2024-07-01 12:15 | PC.SS ---
Follow up note: SS received a call from PT indicating that patient will only need HH services and will need a rollator walker. SS will meet with patient and family to discuss.
[2024-07-01] MEDS: hydrALAZINE INJ 20 MG/ML VIAL 10 MG IV (15:37)
[2024-07-01] MEDS: LOSARTAN POTASSIUM 25 MG TABLET PO (15:51)
[2024-07-01] MEDS: INSULIN LISPRO (AdmeLOG) 1 UNIT/0.01 ML UNIT SC ×2 (16:49→21:56)
[2024-07-01] MEDS: carVEDILOL 3.125 MG TABLET 6.25 MG PO (16:50)
[2024-07-02] VITALS (19 sets, daily range): BP systolic 162–202; BP diastolic 71–102; PULSE 86–113; RESP 17–25; TEMP 36.1–36.7; O2SAT 92–99; BMI 11.0; BMI 24.3
--- NOTE | 2024-07-02 00:02 | PC.NURSE ---
called Dr. Gaviria regarding patient's BP ranging in 181/86, per patient he has no pain, does not appear to be in any distress, other vital signs are stable, patient tooj Coreg PO during the day, per MD will take a look in patient's chart.
[2024-07-02] MEDS: LOSARTAN POTASSIUM 25 MG TABLET 50 MG PO ×3 (00:24→09:18)
[2024-07-02] MEDS: LABETALOL INJ 5 MG/ML VIAL 20 ML 10 MG IVP (02:42)
--- NOTE | 2024-07-02 04:07 | PC.NURSE ---
called Dr. Gaviria regarding patient's BP in the 175/74 after about an hour and a half of administering 10 mg of IV labetelol, patient is asymptomatic, no complaints of pain, chest pain, headache. Other vital signs are stable, per MD will look into patient's chart.
[2024-07-02] MEDS: hydrALAZINE INJ 20 MG/ML VIAL 10 MG IV ×2 (04:16→23:27)
[2024-07-02 06:07] LABS: Basophils % (Auto) 0 % (0-2.5); Eosinophils # (Auto) 0.1 Thou/mm3 (0.0-0.5); Eosinophils % (Auto) 2 % (0-10); Hemoglobin 9.9 g/dL (13.5-16.0); Immature Granulocytes % (Auto) 4 % (0-0); Immature Granulocytes Auto 0.23 Thou/mm3 (0.00-0.00); Lymphocytes # (Auto) 0.9 Thou/mm3 (1.0-4.8); Lymphocytes % (Auto) 15 % (10-50); Mean Corpuscular HGB Conc 35.4 g/dl (31.0-37.0); Mean Corpuscular Hemoglobin 31.4 pg (25.0-35.0); Mean Corpuscular Volume 89 fL (80-100); Monocytes # (Auto) 0.7 Thou/mm3 (0.0-0.8); Monocytes % (Auto) 11 % (0-12); Neutrophils % (Auto) 68 % (37-80); Nucleated Red Blood Cell % 0 /100 WBC (0); Platelet Count 241 Thou/mm3 (140-440); RDW Standard Deviation 41.3 fL (35.1-43.9); Red Blood Count 3.15 Miln/mm3 (4.50-5.90); White Blood Count 5.9 Thou/mm3 (3.8-10.6)
[2024-07-02 06:32] LABS: Alanine Aminotransferase 17 U/L (10-49); Albumin, Serum 2.6 gm/dL (3.4-4.8); Albumin/Globulin Ratio 1.2 (1.2-2.2); Alkaline Phosphatase 70 U/L (46-116); Anion Gap 12 (7-16); Aspartate Amino Transferase 16 U/L (0-34); BUN/Creatinine Ratio 18 Ratio (12-20); Bilirubin,Total 0.4 mg/dL (0.3-1.2); Blood Urea Nitrogen 7 mg/dL (9-23); Calcium (Corrected) 7.4 mg/dL (8.5-10.1); Carbon Dioxide 20.3 mMol/L (20.0-31.0); Chloride 114 mMol/L (98-107); Creatinine (Component) 0.4 mg/dL (0.6-1.3); Estimated Creatinine Clearance 154.6 mL/min (>60); Globulin 2.2 gm/dL (2.3-3.5); Glucose 109 mg/dL (74-106); Osmolality,Calculated 289 (275-295); Sodium 146 mMol/L (136-145); Total Protein 4.8 gm/dL (5.7-8.2); eGFR > 60 See Note
[2024-07-02 06:34] LABS: Potassium 2.4 mMol/L (3.4-5.1)
[2024-07-02 06:35] LABS: Calcium 6.3 mg/dL (8.3-10.6)
--- NOTE | 2024-07-02 06:42 | PC.NURSE ---
called Dr. Lew regarding patient's critical lab results potassium of 2.4, calcium 6.3. Per doctor will look into patient's chart.
[2024-07-02] MEDS: SENNA TABLET 1 TAB PO (08:03)
--- NOTE | 2024-07-02 08:03 | ECHO_ITS ---
Transthoracic Echo Report Ht (in): 70 Wt (lb): 170 Exam Location: Portable Status: Inpatient [employer] Driver: MEG Whitmore^^^^ Indications: Procedure Performed: BP: / HR: 99 Technical Quality: Technically difficult study MEASUREMENTS (Male / Female) Normal Values 2D ECHO LV Diastolic Diameter PLAX 4.6 cm 4.2 - 5.9 / 3.9 - 5.3 cm LV Systolic Diameter PLAX 3.2 cm IVS Diastolic Thickness 1.4 cm 0.6 - 1.0 / 0.6 - 0.9 cm LVPW Diastolic Thickness 1.2 cm 0.6 - 1.0 / 0.6 - 0.9 cm LV Relative Wall Thickness 0.6 LVOT Diameter 1.7 cm Aortic Root Diameter 4.0 cm LA Systolic Diameter LX 3.2 cm 3.0 - 4.0 / 2.7 - 3.8 cm LA Volume Index 27.7 cm?/m? 16 - 28 cm?/m? DOPPLER AV Peak Velocity 113.0 cm/s AV Peak Gradient 5.1 mmHg AV Mean Gradient 3.0 mmHg AV Velocity Time Integral 20.0 cm AI Peak Velocity 239.0 cm/s AI Peak Gradient 22.8 mmHg AI Pressure Half Time 318.0 ms LVOT Peak Velocity 89.7 cm/s LVOT Peak Gradient 3.2 mmHg LVOT Velocity Time Integral 22.3 cm LVOT Cardiac Index 2559.7 cm?/min?m? AV Area Cont Eq vti 2.5 cm? AV Area Cont Eq pk 1.8 cm? MV Area PHT 6.7 cm? Mitral E Point Velocity 108.0 cm/s Mitral A Point Velocity 152.0 cm/s Mitral E to A Ratio 0.7 LV E' Lateral Velocity 6.9 cm/s Mitral E to LV E' Lateral Ratio 15.7 LV E' Septal Velocity 5.9 cm/s Mitral E to LV E' Septal Ratio 18.4 TR Peak Velocity 225.0 cm/s TR Peak Gradient 20.3 mmHg PV Peak Velocity 90.4 cm/s PV Peak Gradient 3.3 mmHg RVOT Peak Velocity 63.5 cm/s FINDINGS Left Ventricle The left ventricular wall thickness is mildly increased. The left ventricular ejection fraction is normal, estimated at 55-60%. There is grade I diastolic dysfunction of the left ventricle (impaired relaxation pattern). Right Ventricle The right ventricle is normal in size and systolic function. The estimated right ventricular systolic pressure, 25 mmHg. Left Atrium The left atrium is normal by two-dimensional, color flow and Doppler imaging with no structural abnormalities, no thrombus formation present. Right Atrium The right atrium is normal by two-dimensional imaging, color flow and Doppler imaging with no structural abnormalities, no thrombus formation present. Atrial Septum The interatrial septum appears normal with no evidence of a shunt. Aorta The aorta is normal by two-dimensional, color flow and Doppler interrogation. Mitral Valve Mild mitral regurgitation. Mild mitral annular calcification. Aortic Valve Aortic valve sclerosis. Tricuspid Valve There is mild tricuspid valve regurgitation. Pulmonic Valve Trivial pulmonic valve regurgitation. Vessels The pulmonary artery appears normal. The inferior vena cava pulmonary and hepatic veins appear normal. Pericardium There is a small pericardial effusion. CONCLUSIONS Indication: Chronic Hypertension Normal LV size and function with an estimated LVEF of 50 to 60%. Mild LVH. Stage I diastolic function. Normal RV size and function with an estimated normal RVSP at 25 mmHg. Mild aortic valve stenosis without stenosis. Mild MAC. Trace MR and trace TR. Trace pericardial effusion Michi Jacobs (Electronically Signed) Final Date: 02 Jul 2024 20:30
[2024-07-02] MEDS: HEPARIN SOD INJ 5000 UNIT/ML VIAL SC ×2 (08:04→20:14)
[2024-07-02] MEDS: carVEDILOL 3.125 MG TABLET 6.25 MG PO ×2 (08:04→17:54)
[2024-07-02] MEDS: POTASSIUM CHL 10 mEq IVPB 10 MEQ/100 ML BAG 100 MEQ IV ×2 (08:04→12:53)
[2024-07-02] MEDS: DOXYCYCLINE INJ 100 MG in SODIUM CHLORIDE 0.9% (POP) 100 ML IV ×2 (09:15→20:13)
[2024-07-02] MEDS: POTASSIUM CHLORIDE 20 mEq TABCR 40 MEQ PO (09:16)
[2024-07-02] MEDS: CALCIUM CARBONATE 600 MG TABLET PO (09:18)
[2024-07-02] MEDS: cefTRIAXone/D5w 2gm 2 GM/50 ML BAG IV (10:49)
--- NOTE | 2024-07-02 13:25 | PD.RESPRO ---
Documentation for date of: 07/02/24 Subjective Subjective Interval history: 07/02/2024: Overnight patient blood pressure on higher side with recorded 181/86, 19 gave the patient's losartan dose early which did not improve blood pressure, labetalol 10 mg x 1 was given which moderately improved to systolic of 175. 19 initiated x 1 order of hydralazine 10 mg IV which slightly improved blood pressure to systolic 160 but heart rate was in the high 90s. This morning, patient seen and examined in hospital bed mental status is continuing to improve and back to near baseline. There was suspicion from physical therapy consultation that the patient might have Parkinson's; however, suspicion remains low as gait disturbance/slow movement could be attributed to compression fracture and the patient does not exhibit any rigidity or autonomic dysfunction, sensory deficits or major motor deficits. Will continue to monitor the patient over 24 hours; moreover, patient's family would prefer to the patient go to a SNF. Exam Vital Signs Temp Pulse Resp BP Pulse Ox O2 Del Method 97.7 F 94 18 173/102 H 99 Room Air 07/02/24 11:43 07/02/24 11:43 07/02/24 11:43 07/02/24 11:43 07/02/24 11:43 07/02/24 08:00 Narrative Exam Physical Exam: GENERAL: Awake, answering questions appropriately but slowly, appears stated age HEENT: NC/AT. Moist mucosa. PERRLA/EOMI. CARDIO: Heart RRR, no obvious murmurs, no JVD. PULM: No coughing or visible SOB. Lungs CTA B/L. GI: Abdomen soft, NT/ND, +BS. SKIN/MSK/EXT: No wounds/discoloration/rashes/edema/amputations. +Pedal pulses present B/L. NEURO: Oriented x3, Moves extremities x4, no focal neurologic deficits noted Objective Labs 07/03/24 06:30 07/03/24 04:41 Labs: Laboratory Results - last 24 hr 07/02/24 04:36 WBC 5.9 RBC 3.15 L Hgb 9.9 L D Hct 28.0 L MCV 89 MCH 31.4 MCHC 35.4 RDW Std Deviation 41.3 Plt Count 241 Neut % (Auto) 68 Lymph % (Auto) 15 Starke % (Auto) 11 Eos % (Auto) 2 Baso % (Auto) 0 Neut # (Auto) 4.0 Lymph # (Auto) 0.9 L Starke # (Auto) 0.7 Eos # (Auto) 0.1 Baso # (Auto) 0.0 Immature Gran # (Auto) 0.23 H Absolute Nucleated RBC 0.00 Immature Gran % 4 H Nucleated RBC % 0 Sodium 146 H Potassium 2.4 L* D Chloride 114 H Carbon Dioxide 20.3 Anion Gap 12 BUN 7 L Creatinine 0.4 L Estim Creat Clear Calc 154.6 eGFR > 60 BUN/Creatinine Ratio 18 Glucose 109 H Calculated Osmolality 289 Calcium 6.3 L* D Corrected Calcium 7.4 L Total Bilirubin 0.4 AST 16 ALT 17 Alkaline Phosphatase 70 D Total Protein 4.8 L Albumin 2.6 L D Globulin 2.2 L Albumin/Globulin Ratio 1.2 Quality Measures Quality Measures none Advance care planning discussed with:: patient Assessment & Plan Assessment Current Active Medications: Generic Name Dose Route Start Last Admin Trade Name Freq PRN Reason Stop Dose Admin Acetaminophen 650 mg 06/30/24 09:24 Acetaminophen 325 Mg Tablet PO 07/30/24 09:23 Q6H PRN Pain 1-3 and/or Fever >100.1 Calcium Carbonate 600 mg 07/02/24 09:00 07/02/24 09:18 Calcium Carbonate 600 Mg Tablet PO 08/01/24 08:59 600 mg QDAY BRIDGET Administration Carvedilol 6.25 mg 07/01/24 17:30 07/02/24 08:04 Carvedilol 3.125 Mg Tablet PO 07/31/24 17:29 6.25 mg BIDWM BRIDGET Administration Dextrose 50 ml 06/30/24 09:30 Dextrose 50%-Water Inj 50 Ml Syringe IV 07/30/24 09:29 Q15MIN PRN BG <50 OR BG <70 & pt unresponsive Glucagon 1 mg 06/30/24 09:30 Glucagon Inj 1 Mg Vial IM Q15MIN PRN BG <70, and no IV access Heparin Sodium (Porcine) 5,000 unit 06/30/24 21:00 07/02/24 08:04 Heparin Sod Inj 5000 Unit/Ml Vial SC 07/14/24 20:59 5,000 unit Q12HR BRIDGET Administration Hydralazine HCl 10 mg 07/02/24 04:08 07/02/24 04:16 Hydralazine Inj 20 Mg/Ml Vial IV 08/01/24 04:07 10 mg Q6HR PRN Administration SBP >170 Sodium Chloride 1,000 mls @ 100 mls/hr 06/30/24 08:15 07/01/24 16:54 Ns IV 07/30/24 08:14 100 mls/hr .Q10H BRIDGET Administration Doxycycline Hyclate 100 mg/ 100 mls @ 100 mls/hr 06/30/24 21:00 07/02/24 09:15 Sodium Chloride IV 07/07/24 20:59 100 mls/hr BID BRIDGET Administration Ceftriaxone Sodium/Dextrose 2 gm in 50 mls @ 100 mls/hr 07/02/24 09:00 07/02/24 10:49 Rocephin/D5w 2gm IV 07/06/24 17:25 100 mls/hr QDAY BRIDGET Administration Insulin Human Lispro 0 unit 06/30/24 11:30 07/02/24 12:48 Insulin Lispro (Admelog) 1 Unit/0.01 Ml Unit SC 07/30/24 11:29 Not Given ACHS BR[facility]GET Protocol Losartan Potassium 100 mg 07/03/24 09:00 Losartan Potassium 25 Mg Tablet PO 08/02/24 08:59 QDAY BRIDGET Ondansetron HCl 4 mg 06/30/24 09:24 Ondansetron Inj 2 Mg/Ml Inj 2 Ml IV 07/30/24 09:23 Q6H PRN NAUSEA OR VOMITING Protocol Sennosides 1 tab 07/01/24 09:00 07/02/24 08:03 Senna Tablet PO 07/31/24 08:59 1 tab QDAY BRIDGET Administration Protocol Sodium Chloride 5 ml 06/30/24 09:24 Sodium Chloride Rt 10% 15 Ml Nebu INH 07/30/24 09:23 PRN PRN SPUTUM INDUCTION Plan 78-year-old male with past medical history of insulin-dependent type 2 diabetes (although A1c have been in the 5's), hypertension, GERD, depression presenting to the ED initially on 06/28 for a ground-level fall but later found to have pneumonia; will be admitted for community-acquired pneumonia started on IV antibiotics. #Community-acquired pneumonia Patient has been in the emergency room since 06/28 for a ground-level fall; status post mo CT scan which only showed L1 compression fraction Since that time, patient has developed tachycardia and met sepsis criteria with endorgan dysfunction including lactic acidosis and elevated T bilirubin Chest x-ray shows opacity in the left base in the lingular segment consistent with pneumonia, moderate vascular congestion Patient has a WBC count of 10.2 and COVID-negative On room air, satting between 94 and 96% without any productive cough noted In the ED, patient was given 2 g of ceftriaxone along with 500 mg of azithromycin Blood cultures ordered in the ED; 1 bottle positive for GPC (likely contamination) RSV and influenza A/B negative Plan: Switch ceftriaxone to 1 g as repeat blood cultures no growth within 24 hours Continue IV doxycycline 100 BID #Hypertension Patient apparently on ramipril 10 mg p.o. daily Echo ordered secondary to patient's resistant hypertension, to rule out hypertrophic cardiomyopathy and left ventricular hypertrophy Plan: Increase losartan to 100 mg daily Continue Coreg 6.25 mg p.o. twice daily IV hydralazine 10 mg every 6 as needed for systolic greater than 180 Depending on ejection fraction we will make changes to the patient's blood pressure medications #Ground-level fall #L1 compression fracture #Degenerative disc disease Per HPI above, patient had a ground-level fall which was not witnessed but the patient is able to recall exactly what occurred Patient has been in the ED since 06/28 and has had mo CT scan Cervical spine CT showed no acute fracture there was some DDD from C3-C4 and C4-C5. 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 right cerebellar hemisphere Lumbar spine MRI confirmed L1 acute fracture of the thoracic spine showed 10% height reduction of L1 Plan: Physical therapy consulted, appreciate recommendations Multimodal pain management Lumbar brace to be on patient Follow-up with orthopedic surgery outpatient #Normocytic anemia #Iron deficiency anemia Differentials include anemia of chronic disease, iron deficiency anemia, vitamin deficiency, hemolytic anemia; less likely to be bone marrow suppression Appears to be that the patient has iron deficiency anemia with an iron of 22, TIBC 203, iron saturation 10% and ferritin 244 Plan: Peripheral smear, pending Iron supplementation on outpatient basis #Elevated bilirubin, downtrending CT abdomen pelvis showed a common bile duct 10 mm with mild dilation of the pancreatic duct Patient denies having any pelvic pain on exam Gallbladder ultrasound shows common bile duct 0.4 cm with no stones Plan: Will continue monitor for any acute changes #Prediabetes Patient apparently on metformin 500 mg p.o. twice daily, pioglitazone 30 mg p.o. daily and Febuvia 100 mg p.o. daily Patient also apparently takes 15 units of insulin glargine in the morning A1c on file have on been around the high fives medication Unsure exactly when the patient is on all these medications; family friend bedside was not able to provide much reasoning Plan: Sliding scale insulin #GERD #Depression Patient is on omeprazole 20 mg p.o. daily for GERD, paroxetine 40 mg p.o. every morning for depression Plan: Pending official med rec, will restart home medications Hospital Management: Lines: PIV Diet: Carb consistent low Bowel: Senna GI prophylaxis: Not needed DVT prophylaxis: Heparin subcu Dispo: IV antibiotics for community-acquired pneumonia Patient seen and examined with attending Dr. Mandujano and senior resident Dr. Dionne Alvarez, PGY-1 Patient examined and case discussed with the team including attending physician. Note reviewed, I agree with the care plan as documented. Mr Monreal is a 78-year-old male admitted for community-acquired pneumonia on Rocephin and doxycycline. Blood pressure better controlled on carvedilol and losartan, we will increase dose for optimization. If not controlled by tomorrow, will switch to CCB. Pending echocardiogram to evaluate heart function given chronic hypertension and possible LVH. For physical therapy, patient appeared weaker today, TLSO brace ordered for back support, PT to reevaluate tomorrow with brace on. Family present at bedside, counseled extensively, request SNF. Will continue to liaise with health and social care teacher, appreciate input. Plan: Anticipate discharge in the next 24 hours. Please refer to the note above for further details. - Phil Truong MD, PGY 2 Disclaimer: The document may contain phonetic/typographic errors due to voice recognition software. These errors are purely due to imperfections in the software program and should not be misconstrued in any way to compromise the substance of the patient's medical care during this visit. Attending Provider Attestation/Addendum Juana, eVro Mandujano DO, attest that I was physically present for the scherer portions of the service and evaluated the patient with the resident and I reviewed and discussed the case with the resident and agree with the resident's findings and plans of care as documented above Patient seen and evaluated this a.m. he states he is doing better today. No shortness of breath and pain in back is minimal. He denies any chest pain, fevers or chills otherwise. His blood pressure remains elevated. Will continue to uptitrate antihypertensives. [place] are at bedside and hope for patient to be discharged to SNF due to his decline in functional status. They have noted that he is very slow to get up out of the chair, turn and has shuffling gait. Encouraged them to take patient to neurologist due to suspicion for Parkinson's. Will repeat labs at this time due to drop in hemoglobin. Patient is otherwise hemodynamically stable. Family would like to speak to health and social care teacher for discharge planning.
[2024-07-02 13:59] LABS: Basophils % (Auto) 0 % (0-2.5); Eosinophils # (Auto) 0.1 Thou/mm3 (0.0-0.5); Eosinophils % (Auto) 2 % (0-10); Hematocrit 33.6 % (41.0-53.0); Hemoglobin 11.9 g/dL (13.5-16.0); Immature Granulocytes % (Auto) 2 % (0-0); Immature Granulocytes Auto 0.17 Thou/mm3 (0.00-0.00); Lymphocytes # (Auto) 0.9 Thou/mm3 (1.0-4.8); Lymphocytes % (Auto) 10 % (10-50); Mean Corpuscular HGB Conc 35.4 g/dl (31.0-37.0); Mean Corpuscular Hemoglobin 31.7 pg (25.0-35.0); Mean Corpuscular Volume 90 fL (80-100); Monocytes # (Auto) 0.7 Thou/mm3 (0.0-0.8); Monocytes % (Auto) 9 % (0-12); Neutrophils # (Auto) 6.6 Thou/mm3 (1.8-7.7); Neutrophils % (Auto) 77 % (37-80); Nucleated Red Blood Cell % 0 /100 WBC (0); Platelet Count 326 Thou/mm3 (140-440); RDW Standard Deviation 42.2 fL (35.1-43.9); Red Blood Count 3.75 Miln/mm3 (4.50-5.90); White Blood Count 8.5 Thou/mm3 (3.8-10.6)
[2024-07-02 14:21] LABS: Albumin, Serum 3.6 gm/dL (3.4-4.8); Anion Gap 7 (7-16); BUN/Creatinine Ratio 12 Ratio (12-20); Blood Urea Nitrogen 7 mg/dL (9-23); Calcium 8.7 mg/dL (8.3-10.6); Carbon Dioxide 24.1 mMol/L (20.0-31.0); Chloride 104 mMol/L (98-107); Creatinine (Component) 0.6 mg/dL (0.6-1.3); Estimated Creatinine Clearance 103.1 mL/min (>60); Glucose 160 mg/dL (74-106); Osmolality,Calculated 271 (275-295); Phosphorous 1.9 mg/dL (2.4-5.1); Potassium 3.7 mMol/L (3.4-5.1); Sodium 135 mMol/L (136-145); eGFR > 60 See Note
[2024-07-02] MEDS: Magnesium Sulfate 2 GM Ivpb 2 GM/50 ML BAG IV (14:35)
--- NOTE | 2024-07-02 14:53 | PC.PT ---
Patient was declined Short term rehab services in the SNF by insurance. This PT indicated in PT notes today that patient had a functional decline and that patient lives alone and that patient needs assistance in ambulation today. But insurance still denies short term rehab services. This PT explained to the sisters at bedside that insurance denies short term rehab services. If patient will be dc to home, patient will need wc, homehealth PT/OT. Explained to the family that insurance will only cover 1 (walker or wc). And sisters agreed about the wc. [facility] caregiver was also mentioned. SW at bedside with this PT and SW will give resources about [facility]. All questions answered.
[2024-07-02] MEDS: SODIUM CHLORIDE 0.9% 1000 ML 1,000 ML 100 ML IV (20:11)
[2024-07-02] MEDS: INSULIN LISPRO (AdmeLOG) 1 UNIT/0.01 ML UNIT SC (20:15)
--- NOTE | 2024-07-02 23:31 | PC.NURSE ---
Dr. Gaviria made aware of patients blood pressure of 202/92 with a heart rate of 102. JODIE Rao administered 10mg Hydralazine IVP. Will recheck blood pressure.
[2024-07-03] VITALS (16 sets, daily range): BP systolic 126–187; BP diastolic 68–95; PULSE 83–127; RESP 14–96; TEMP 36.1–37.2; O2SAT 92–99
--- NOTE | 2024-07-03 03:51 | PC.NURSE ---
Addendum entered by Jalen Meza RN 07/03/24 03:54: Dr. Lew notified of patient's blood pressure. Dr. Lew will put orders. Original Note: Pt's blood pressure is 187/95 with a heart rate of 110. Hydralazine last given at 2327. JODIE Rao attempted to call hospitalist, but no answer.
[2024-07-03] MEDS: hydrALAZINE INJ 20 MG/ML VIAL 10 MG IV (04:41)
[2024-07-03 06:35] LABS: Alanine Aminotransferase 29 U/L (10-49); Albumin, Serum 4.1 gm/dL (3.4-4.8); Albumin/Globulin Ratio 1.3 (1.2-2.2); Alkaline Phosphatase 110 U/L (46-116); Anion Gap 13 (7-16); Aspartate Amino Transferase 30 U/L (0-34); BUN/Creatinine Ratio 11 Ratio (12-20); Bilirubin,Total 0.6 mg/dL (0.3-1.2); Blood Urea Nitrogen 8 mg/dL (9-23); Calcium 8.7 mg/dL (8.3-10.6); Calcium (Corrected) 8.7 mg/dL (8.5-10.1); Carbon Dioxide 25.1 mMol/L (20.0-31.0); Chloride 105 mMol/L (98-107); Creatinine (Component) 0.7 mg/dL (0.6-1.3); Estimated Creatinine Clearance 88.4 mL/min (>60); Globulin 3.2 gm/dL (2.3-3.5); Glucose 114 mg/dL (74-106); Osmolality,Calculated 284 (275-295); Potassium 3.6 mMol/L (3.4-5.1); Sodium 143 mMol/L (136-145); Total Protein 7.3 gm/dL (5.7-8.2); eGFR > 60 See Note
[2024-07-03 06:39] LABS: Basophils % (Auto) 1 % (0-2.5); Eosinophils # (Auto) 0.2 Thou/mm3 (0.0-0.5); Eosinophils % (Auto) 2 % (0-10); Hematocrit 38.8 % (41.0-53.0); Hemoglobin 13.6 g/dL (13.5-16.0); Immature Granulocytes % (Auto) 2 % (0-0); Immature Granulocytes Auto 0.16 Thou/mm3 (0.00-0.00); Lymphocytes # (Auto) 1.2 Thou/mm3 (1.0-4.8); Lymphocytes % (Auto) 15 % (10-50); Mean Corpuscular HGB Conc 35.1 g/dl (31.0-37.0); Mean Corpuscular Hemoglobin 31.6 pg (25.0-35.0); Mean Corpuscular Volume 90 fL (80-100); Monocytes # (Auto) 0.7 Thou/mm3 (0.0-0.8); Monocytes % (Auto) 9 % (0-12); Neutrophils # (Auto) 5.4 Thou/mm3 (1.8-7.7); Neutrophils % (Auto) 71 % (37-80); Nucleated Red Blood Cell % 0 /100 WBC (0); Platelet Count 366 Thou/mm3 (140-440); RDW Standard Deviation 42.5 fL (35.1-43.9); White Blood Count 7.6 Thou/mm3 (3.8-10.6)
[2024-07-03] MEDS: carVEDILOL 3.125 MG TABLET 6.25 MG PO ×2 (07:56→08:21)
[2024-07-03] MEDS: NIFEdipine XL 30 MG TABCR PO (08:02)
[2024-07-03] MEDS: LOSARTAN POTASSIUM 25 MG TABLET 100 MG PO (08:02)
[2024-07-03] MEDS: SENNA TABLET 1 TAB PO (08:03)
[2024-07-03] MEDS: CALCIUM CARBONATE 600 MG TABLET PO (08:03)
[2024-07-03] MEDS: HEPARIN SOD INJ 5000 UNIT/ML VIAL SC ×2 (08:03→20:08)
[2024-07-03] MEDS: cefTRIAXone/D5w 1gm IV premix 1 GM/50 ML BAG IV (08:03)
[2024-07-03] MEDS: SODIUM CHLORIDE 0.9% 1000 ML 1,000 ML 100 ML IV (08:05)
--- NOTE | 2024-07-03 08:13 | EKG_ITS ---
[facility] Test Date: 2024-07-03 Pat Name: JOSE VICENTE [facility] Gender[facility] Male Application Coordinator: WILLI : 1945 Requested By: Phil Truong Order Number: [id number] Reading MD: Phil Truong Measurements Intervals [place] Rate: 125 P: 180 NM: 202 QRS: 2 QRSD: 94 T: 59 QT: 398 QTc: 575 Interpretive Statements SINUS TACHYCARDIA NONSPECIFIC T-WAVE ABNORMALITY ABNORMAL RHYTHM ECG Compared to ECG 06/28/2024 20:20:34 T-wave abnormality now present ST (T wave) deviation no longer present /store/S0/[id number].pdf
[2024-07-03] MEDS: DOXYCYCLINE 100 MG TABLET PO ×2 (08:39→20:06)
[2024-07-03] MEDS: NAPH,KPH MBDB 1 PACKET (1.5 GM) PO (10:00)
[2024-07-03] MEDS: SODIUM CHLORIDE 0.9% 500 ML 500 ML 999 ML IV (10:00)
[2024-07-03 10:25] LABS: Thyroid Stimulating Hormone 4.11 uIU/mL (0.55-4.78)
[2024-07-03] MEDS: POT PHOS 15 mMol in NS 250 ML 15 MMOL/250 ML BAG 62.5 MMOL IV (10:45)
--- NOTE | 2024-07-03 11:10 | PC.SS ---
Initial assessment: this is 78 year old male who lives at home alone. Patient confirmed home address. Patient denies having any DME at home. Patient reports needing some assistance with ADL's. Patient's PCP Perry Gomez. Patient was denied SNF placement by insurance and recommendation for home health services. Patient is aware and agreeable to home health for PT needs. Patient is requesting a walker and transport services via gurney at the time of discharge. Patient and family also requested for [facility] referral to be sent off. Patient states his emergency contacts of facesheet are correct. D/c plan: home health Next of kin: nicolette Stovall
--- NOTE | 2024-07-03 11:16 | PC.SS ---
Addendum entered by HALINA Smalls 07/03/24 11:46: SS update: Patient and family at bed side provided with community resources including [facility] 24hr care resource. Original Note: SS follow up: [facility] referral was faxed out to [phone].
--- NOTE | 2024-07-03 11:18 | PC.SS ---
Patient has requested a FWW. Walkers The diagnosis creates mobility limitation that significantly impairs ability to participate in the patients activities of daily living either in their entirety, or in a reasonable time frame. Also the patient is able to safely use the walker and the patient?s mobility is sufficiently resolved with the use of the walker and cane has been ruled out.
--- NOTE | 2024-07-03 11:20 | PC.SS ---
Addendum entered by HALINA Smalls 07/03/24 17:02: Beside nurse Veronique was updated on d/c plan. Addendum entered by Maar Dove BUSINESS EDUCATION INSTRUCTOR 07/03/24 16:50: [facility] transport arranged, reference number: [id number]. Pending ETA. Provided them with nursing station number for follow up. Addendum entered by Mara Dove BUSINESS EDUCATION INSTRUCTOR 07/03/24 16:27: SS update: spoke with patient's friend, Karen [phone] regarding transportation for the patient to return home. Karen confirmed patient's caregiver, Mana will be present to receive the patient this evening about 8pm. Addendum entered by HALINA Smalls 07/03/24 15:19: SS follow up: patient is aware d/c orders are in. Patient aware he was denied for SNF placement. Patient informed home health services to follow upon returning home. 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 Patient is agreeable returning home today. Pending response from patient's family in regards to what time to schedule transportation to patient's home. Addendum entered by HALINA Smalls 07/03/24 14:31: Notified patient's family that patient is ready to be discharged. Addendum entered by HALINA Smalls 07/03/24 14:24: DME referral was faxed to [facility]. . Addendum entered by HALINA Smalls 07/03/24 14:20: DME inquiry was sent via [email or web address]. Also attempted contact with [employer] staff, left them a voicemail. Original Note: Patient has also requested a Hospital bed. Hospital Bed Patient?s diagnosis requires positioning of the head or upper body to be elevated more than 30 degrees. Also the diagnosis requires positioning in order to alleviate pain and if the patient requires frequent changes in the body positioning and/or has an immediate need for change in the body position. Pillows and wedges have been considered and ruled out.
--- NOTE | 2024-07-03 11:58 | PD.RESPRO ---
Documentation for date of: 07/03/24 Exam Vital Signs Temp Pulse Resp BP Pulse Ox O2 Del Method 98.9 F 94 16 156/79 H 98 Room Air 07/03/24 11:31 07/03/24 11:31 07/03/24 11:31 07/03/24 11:31 07/03/24 11:31 07/03/24 11:31 Objective Labs 07/03/24 06:30 07/03/24 04:41 Labs: Laboratory Results - last 24 hr 07/02/24 07/03/24 07/03/24 13:45 04:41 06:30 WBC 8.5 D 7.6 RBC 3.75 L 4.30 L Hgb 11.9 L D 13.6 Hct 33.6 L 38.8 L MCV 90 90 MCH 31.7 31.6 MCHC 35.4 35.1 RDW Std Deviation 42.2 42.5 Plt Count 326 D 366 D Neut % (Auto) 77 71 Lymph % (Auto) 10 15 [place] % (Auto) 9 9 Eos % (Auto) 2 2 Baso % (Auto) 0 1 Neut # (Auto) 6.6 5.4 Lymph # (Auto) 0.9 L 1.2 [place]oard # (Auto) 0.7 0.7 Eos # (Auto) 0.1 0.2 Baso # (Auto) 0.0 0.0 Immature Gran # (Auto) 0.17 H 0.16 H Absolute Nucleated RBC 0.00 0.00 Immature Gran % 2 H 2 H Nucleated RBC % 0 0 Sodium 135 L D 143 Potassium 3.7 D 3.6 Chloride 104 105 Carbon Dioxide 24.1 25.1 Anion Gap 7 13 BUN 7 L 8 L Creatinine 0.6 0.7 Estim Creat Clear Calc 103.1 88.4 eGFR > 60 > 60 BUN/Creatinine Ratio 12 11 L Glucose 160 H D 114 H Calculated Osmolality 271 L 284 Calcium 8.7 D 8.7 Corrected Calcium 9.0 D 8.7 Phosphorus 1.9 L Total Bilirubin 0.6 AST 30 ALT 29 Alkaline Phosphatase 110 D Total Protein 7.3 Albumin 3.6 D 4.1 D Globulin 3.2 Albumin/Globulin Ratio 1.3 TSH 4.11 Quality Measures Quality Measures none Assessment & Plan Assessment Current Active Medications: Generic Name Dose Route Start Last Admin Trade Name Freq PRN Reason Stop Dose Admin Acetaminophen 650 mg 06/30/24 09:24 Acetaminophen 325 Mg Tablet PO 07/30/24 09:23 Q6H PRN Pain 1-3 and/or Fever >100.1 Calcium Carbonate 600 mg 07/02/24 09:00 07/03/24 08:03 Calcium Carbonate 600 Mg Tablet PO 08/01/24 08:59 600 mg QDAY BRIDGET Administration Carvedilol 12.5 mg 07/03/24 17:30 Carvedilol 3.125 Mg Tablet PO 08/02/24 17:29 BIDWM BRIDGET Dextrose 50 ml 06/30/24 09:30 Dextrose 50%-Water Inj 50 Ml Syringe IV 07/30/24 09:29 Q15MIN PRN BG <50 OR BG <70 & pt unresponsive Doxycycline Hyclate 100 mg 07/03/24 09:00 07/03/24 08:39 Doxycycline 100 Mg Tablet PO 07/10/24 08:59 100 mg BID BRIDGET Administration Glucagon 1 mg 06/30/24 09:30 Glucagon Inj 1 Mg Vial IM Q15MIN PRN BG <70, and no IV access Heparin Sodium (Porcine) 5,000 unit 06/30/24 21:00 07/03/24 08:03 Heparin Sod Inj 5000 Unit/Ml Vial SC 07/14/24 20:59 5,000 unit Q12HR BRIDGET Administration Potassium Phosphate 15 mmol in 250 mls @ 62.5 mls/hr 07/03/24 09:49 07/03/24 10:45 Pot Phos 15 Mmol In Ns 250 Ml IV 07/03/24 13:48 62.5 mls/hr X1 ONE Administration Insulin Human Lispro 0 unit 06/30/24 11:30 07/03/24 11:28 Insulin Lispro (Admelog) 1 Unit/0.01 Ml Unit SC 07/30/24 11:29 Not Given ACHS [facility] Protocol Losartan Potassium 100 mg 07/03/24 09:00 07/03/24 08:02 Losartan Potassium 25 Mg Tablet PO 08/02/24 08:59 100 mg QDAY BRIDGET Administration Nifedipine 30 mg 07/03/24 09:00 07/03/24 08:02 Nifedipine Xl 30 Mg Tabcr PO 08/02/24 08:59 30 mg QDAY BRIDGET Administration Ondansetron HCl 4 mg 06/30/24 09:24 Ondansetron Inj 2 Mg/Ml Inj 2 Ml IV 07/30/24 09:23 Q6H PRN NAUSEA OR VOMITING Protocol Sennosides 1 tab 07/01/24 09:00 07/03/24 08:03 Senna Tablet PO 07/31/24 08:59 1 tab QDAY BRIDGET Administration Protocol Sodium Chloride 5 ml 06/30/24 09:24 Sodium Chloride Rt 10% 15 Ml Nebu INH 07/30/24 09:23 PRN PRN SPUTUM INDUCTION
--- NOTE | 2024-07-03 14:01 | ESDS_ITS ---
<Statement entered by Vero Mandujano DO - 07/03/24 15:35> I, Vero Mandujano DO, attest that I was physically present for the scherer portions of the service and evaluated the patient with the resident and I reviewed and discussed the case with the resident and agree with the resident's findings and plans of care as documented above Planned Discharge Date 07/03/24 DS: Providers Provider Date of admission: 06/30/24 09:24 Primary care physician: Kat Esteban MD Admitting Provider: Vero Mandujano DO Attending Provider on Admission: Vero Mandujano DO Consults: 06/29/24 11:10 Referral Physical Therapy Stat Comment: Physician Instructions: Instructions: PT eval. MAY NEED A BACK BRACE FOR ACUTE COMPRESSION FRACTURE 06/30/24 13:24 Health Equity Referral - Knowledge Deficit Routine Comment: Positive screening for knowledge deficit needs. Health Equity Referral - Transportation Routine Comment: Positive screening for transportation needs. Attending Provider on DC: Vero Mandujano DO Discharging Provider: Jose Raul Alvarez MD DS: Diagnosis Problem List Completed Was Problem List Reviewed/Reconciled?: Yes Hospital Course Hospital Course Hospital course: 78-year-old male with past medical history of prediabetes, hypertension, GERD, depression presenting to the ED initially on 06/28 with a ground-level fall. Patient had a mo CT scan which showed a compression fracture of the lumbar L1 spine with 10% height reduction. During his stay in the emergency room, patient developed tachycardia and apparent endorgan dysfunction with elevated T bilirubin and lactic acidosis. Chest x-ray was ordered which showed signs of pneumonia; moreover, patient was admitted for IV antibiotics and close monitoring. During hospitalization, patient's blood pressure was elevated and medications were altered and increased to treat the hypertension. Echocardiogram was ordered which showed normal LV and RV size/function with an EF of 50 to 60%; there was stage I diastolic dysfunction but otherwise remarkable echo with mild aortic valve stenosis without stenosis. EKG was also ordered as the patient was tachycardic which showed sinus tachycardia without any concerning ST changes. Patient will be discharged from the hospital with the following strict instructions. Please follow-up with PCP; you could benefit from a neurology referral to assess for Parkinsonian symptoms noted during hospitalization. Ask your PCP to manage and follow-up on your blood pressure Please take Coreg 12.5 mg by mouth twice a day, Losartan 100 mg by mouth daily and Nifedipine 30 mg by mouth daily for HIGH blood pressure Please take one more day of Doxycycline 100 mg by mouth twice a day for pneumonia If your symptoms worsen or if you develop new chest pain, shortness of breath, dizziness, leg numbness or urinary/fecal incontinence - please come back to the ED immediately. Hospital Diagnosis: #Community-acquired pneumonia #Uncontrolled Hypertension, resolved #Ground-level fall #L1 compression fracture #Degenerative disc disease #Normocytic anemia #Iron deficiency anemia #Elevated bilirubin, downtrending #Prediabetes #GERD #Depression Jose Raul Alvarez, PGY-1 Patient was examined with the team including attending physician. Note reviewed, I agree with the discharge plan as documented. - Phil Truong MD PGY2 Disclaimer: The document may contain phonetic/typographic errors due to voice recognition software. These errors are purely due to imperfections in the s [employer] program and should not be misconstrued in any way to compromise the substance of the patient's medical care during this visit. Status at Discharge Overall status at discharge: patient is progressing back to baseline Time Spent with Patient Time attestation: Total time spent providing and/or coordinating discharge services: 45 minutes Time spent: Greater than 30 minutes Home Health Home Health Referral Orders: 07/03/24 13:58 Home Health Referral Routine Reason For Exam: fall Home-Bound The patient must either because of illness or injury, need the aid of supportive devices such as crutches, canes, wheelchairs, and walkers; the use of special transportation; or the assistance of another person in order to leave their place of residence; OR have a condition such that leaving his or her home is medically contraindicated. In addition, the patient also meets the following criteria: patient is normally unable to leave the home and leaving home requires considerable taxing effort. Addendum to Home Health Certification Practitioner's Certification: I certify that the patient has been under my care in the hospital and the care of attending physician (see below). We had a ispr-bq-uxpe encounter on (see date below). My clinical findings indicate that the patient is home bound per the above criteria and the Home Health Services noted in these orders are medically necessary. The primary reason for the lqvu-tk-hswy encounter is related to the fact that the patient requires home health services. Date Certifying Wbnd-qw-Quut Physician Encounter: 06/30/24 Physician's Name who will Assume Oversight for Services: Kat Alva-Oliver Physician's Phone No.who will Assume Oversight for Service: PLEATING SUPERVISOR - Community Resources: No PT to Evaluate: Yes PT to evaluate and provide a treatmnet plan to increase patient's mobility and strength. Wound Care: No IV Therapy: No RN Safety Evaluation: Yes RN to evaluate and create a plan of care that will produce positive outcomes. Palliative Treatment: No Palliative treatment and evaluate the need for hospice. Home Health Aide - Personal Care: Yes Home Health Aide to assist with any ADL's. Exam Vital Signs Temp Pulse Resp BP Pulse Ox O2 Del Method 98.9 F 102 H 16 156/79 H 98 Room Air 07/03/24 11:31 07/03/24 12:00 07/03/24 11:31 07/03/24 11:31 07/03/24 11:31 07/03/24 11:31 Narrative Exam Physical Exam: GENERAL: Awake, answering questions appropriately but slowly, appears stated age HEENT: NC/AT. Moist mucosa. PERRLA/EOMI. CARDIO: Heart RRR, no obvious murmurs, no JVD. PULM: No coughing or visible SOB. Lungs CTA B/L. GI: Abdomen soft, NT/ND, +BS. SKIN/MSK/EXT: No wounds/discoloration/rashes/edema/amputations. +Pedal pulses present B/L. NEURO: Oriented x3, Moves extremities x4, no focal neurologic deficits noted Discharge Plan Plan Patient Disposition: Home w/HOME HEALTH Patient condition on transfer: Stable Care Plan Goals: Please follow-up with PCP; you could benefit from a neurology referral to assess for Parkinsonian symptoms noted during hospitalization. Ask your PCP to manage and follow-up on your blood pressure Please take Coreg 12.5 mg by mouth twice a day, Losartan 100 mg by mouth daily and Nifedipine 30 mg by mouth daily for HIGH blood pressure Please take one more day of Doxycycline 100 mg by mouth twice a day for pneumonia If your symptoms worsen or if you develop new chest pain, shortness of breath, dizziness, leg numbness or urinary/fecal incontinence - please come back to the ED immediately. Prescriptions/Referrals Prescriptions/Med Rec: New nifedipine 30 mg Tablet Extended Release 24hr 30 mg PO QDAY 30 Days Qty: 30 0RF doxycycline hyclate 100 mg Tablet 100 mg PO BID 1 Days Qty: 2 0RF carvedilol [Coreg] 12.5 mg tablet 12.5 mg PO BID 30 Days Qty: 60 0RF Rx Instructions: must administer with a meal/food losartan 100 mg tablet 100 mg PO QDAY 30 Days Qty: 30 0RF Continued paroxetine HCl [Paxil] 40 MG tablet 40 mg PO QAM Qty: 0 metformin [Glucophage] 500 MG tablet 500 mg PO BIDAC Qty: 120 0RF omeprazole 20 mg Capsule,Delayed Release(Dr/Ec) 20 mg PO QDAY pioglitazone 30 mg Tablet 30 mg PO QDAY Januvia 100 mg Tablet 100 mg PO DAILY Discontinued ibuprofen 800 mg tablet 800 mg PO TID PRN (Reason: pain) Qty: 30 0RF Referrals: Kat Esteban MD [Primary Care Provider] - Patient/Caregiver Discharge Instructions Education Materials: Controlling High Blood Pressure, Back Safety: Sleeping Positions, Back Safety: Standing, Back Safety: Turning, Back Fracture (Compr ession Fracture), Blood Pressure Check Steps Print Language: Gambian Stand Alone Forms: Renetta Award Info., Patient Portal Info Letter Discharge Order Discharge Orders: Discharge (Routine); Ordered 07/03/24 Ordered By: Jose Raul Alvarez Quality Discharge Quality Measures VTE prophylaxis
[2024-07-03] MEDS: INSULIN LISPRO (AdmeLOG) 1 UNIT/0.01 ML UNIT SC ×2 (17:37→20:07)
[2024-07-03] MEDS: carVEDILOL 3.125 MG TABLET 12.5 MG PO (17:37)
--- NOTE | 2024-07-03 18:36 | PC.CM ---
Patient has [employer] insurance so I sent to [facility].
--- NOTE | 2024-07-03 21:30 | PC.NURSE ---
MAX,PATIENT POINT OF CONTACT,VERIFIED THAT WHEN PATIENT ARRIVES HOME VIA AMBULANCE,[facility]UGIO WHO HAS HIS CAREGIVER WILL STAY 24/7 TO TAKE CARE OF HIM AND SHE AGREED THAT PATIENT IS OK TO GO HOME.CHARGE NURSE AND MD MADE AWARE.
--- NOTE | 2024-07-04 11:55 | PC.CC ---
[facility] accepted the pt. Booked [facility]. Pending start of care date.
--- NOTE | 2024-07-08 09:01 | PC.CC ---
SOC date is 07/07 [facility]
== END 2024-07-03 21:35 | disposition home health service (06) | DRG 871 ==
LOC: SERX 06-30 08:49 → SERHOLD 06-30 09:35 → S3NX 06-30 11:22
PROVIDERS: Emergency Medicine; Family Medicine; Student in an Organized Health Care Education/Training Program; Admitting Provider Internal Medicine; Emergency Provider Emergency Medicine; PCP Internal Medicine; Visit Provider Internal Medicine
DX: A41.9 Sepsis, unspecified organism (principal); J18.9 Pneumonia, unspecified organism; S32.019A Unspecified fracture of first lumbar vertebra, initial encounter for closed fracture; R17 Unspecified jaundice; E87.20 Acidosis, unspecified; K21.9 Gastro-esophageal reflux disease without esophagitis; F32.A Depression, unspecified; I10 Essential (primary) hypertension; M50.31 Other cervical disc degeneration, high cervical region; E11.9 Type 2 diabetes mellitus without complications; D50.9 Iron deficiency anemia, unspecified; I1A.0 Resistant hypertension; K86.89 Other specified diseases of pancreas; W18.30XA Fall on same level, unspecified, initial encounter; M51.34 Other intervertebral disc degeneration, thoracic region; Z79.4 Long term (current) use of insulin; Z79.84 Long term (current) use of oral hypoglycemic drugs; Z79.899 Other long term (current) drug therapy
CPT/HCPCS: 36415; 70450; 71045; 72125; 72131; 72146; 72148; 74177; 76705; 80048; 80053; 80069; 80307; 80320; 80329; 81001; 82728; 83540; 83550; 83605; 83735; 84100; 84145; 84443; 84484; 85025; 85046; 87040; 87077; 87186; 87205; 87502; 87634; 87811; 93005; 93225; 93306; 94762; 96361; 96365; 96375; 97162; 99285; A4649; J0360; J0696; J1644; J1815; J2470; J3475; J3480; J3490; J7030; J7040; J7999; Q9967; A9270; G0480; J1920

== ENCOUNTER 2024-07-18 12:24 | Inpatient (IN) | payer OTHER, MEDICAID, MEDICARE, SELFPAY ==
[2024-07-18] VITALS (11 sets, daily range): BP systolic 112–196; BP diastolic 60–92; PULSE 68–104; RESP 14–24; TEMP 36.9–37.1; O2SAT 96–99; BMI 22.9
--- NOTE | 2024-07-18 12:25 | PC.NURSE ---
md Cruz met pt and ems at ambulance bay to r/o stroke alert, no stroke alert called at this time per pt moved to rm 1
--- NOTE | 2024-07-18 13:15 | PC.NURSE ---
pt brought in by ems due to altered mental status and low bs of 78mg/dl, security chief [employer] gave pt d10 ivp and pt started back to normal limits. walked into room and pt is alert and answering questions. pt is a&ox3 gcs of 14. pt placed on monitor pulse ox. noted slurred speech when talking to pt and rt side facial droop. per granddaughter this is not pt normal. she did say that pt is currently getting over pna and fx to lower back and was seen here for dx. pt has been more weak at home and not wanting to get up and do has adls
--- NOTE | 2024-07-18 13:28 | XR_ITS ---
Examination: AP lumbar spine single view TECHNIQUE: AP lumbar spine single view Date and time: July 18, 2024 1404 hours Comparison May 22, 2020 INDICATIONS: History fracture L1 FINDINGS: AP view only Prominent osteopenia IMPRESSION: Recommend lateral view lumbar spine follow-up
--- NOTE | 2024-07-18 13:28 | XR_ITS ---
Examination: AP chest single view Technique one AP portable semiupright chest single view Date and time: July 18, 2024 1359 hours Comparison June 29, 2024 INDICATIONS: Patient fell 3 weeks ago with injury of the chest, chest pain FINDINGS: Mild enlargement cardiac contour No pneumothorax Biapical pleural thickening Clavicles and visualized ribs appear intact IMPRESSION: No pneumothorax
--- NOTE | 2024-07-18 13:31 | XR_ITS ---
Examination: CT brain head without contrast. 2-D sagittal coronal reconstructions Date and time of exam:July 18, 2024 1446 hours INDICATIONS: Ground-level fall today with into the head, head pain CTDI: vol (mGy):48.3 DLP: (mGycm):945 Technique: Multiple CT axial sections of the brain have been obtained, 5 mm slice thickness. Contrast has not been administered. 2-D sagittal, coronal reconstructions have been obtained Low dose protocols were performed. One or more of the following dose reduction techniques were used; automated exposure control, adjustment of the mA and/or KV according to patient size, use of iterative reconstruction technique. Findings: No significant ventricular enlargement. Small old appearing infarcts left basal ganglia and right cerebellar hemisphere, right brainstem pontine level Intra-axial or extra-axial hemorrhage density is not seen. No mass effect or midline shift Basal cisterns are not remarkable. Fourth ventricle is midline. Cranial vault intact. Prominent right ethmoid sinusitis and bilateral maxillary sinusitis Impression: Negative for acute hemorrhage, mass effect or midline shift Old appearing infarcts as above, but clinical correlation advised
--- NOTE | 2024-07-18 13:45 | EDNOTE_ITS ---
<Statement entered by Irina Cruz MD - 07/30/24 04:46> I, Irina Cruz MD, have reviewed the history, exam, and assessment of the patient. I have evaluated the patient independently and agree with the plan of care documented by [ ]. All diagnostic studies were reviewed and discussed. I confirm the diagnosis as documented by the Resident. I was present during the Medical Decision Making for this patient. The patient's plan of care was created between myself and the Resident and consistent with our discussion of the patient's case. Altered Mental Status RME/HPI General Chief Complaint: Altered Mental Status Stated Complaint: Low blood glucose (78) Time Seen by Provider: 07/18/24 13:27 Arrival date/time: 07/18/24 12:24 RME / HPI RME / HPI narrative: The patient is a 78-year-old gentleman with past medical history of diabetes, hypertension, gout, depression, compression fraction of lumbar spine L1 with 10% height reduction, was brought in by ambulance to ED with chief complaint of altered mental status. He was found to have blood sugar of 76, and was given D10 bolus by EMS, after which his mental status started improving. As per the patient's family member, the patient was discharged home 2 weeks ago from [facility] after being treated for pneumonia and L1 compression fracture. However, the patient was not taking care of himself at his home, and is related brought him to her own home. He was improving daily, but since yesterday, he refused his medications and this morning he was lethargic and confused. His relative also suspect that the patient might have ground-level fall. The patient reported generalized weakness, lower back pain, and constipation but denied any headache, lightheadedness, chest pain, SOB, abdominal pain, leg swelling, nausea or vomiting, fever or chills. Related Data Home Medications ?Medication ?Instructions ?Recorded ?Confirmed paroxetine HCl 40 mg tablet (Paxil) 40 mg PO [facility] #0 ta bs 07/02/13 07/24/18 omeprazole 20 mg capsule,delayed 20 mg PO QDAY 9 07/24/18 release pioglitazone 30 mg tablet 30 mg PO QDAY 07/24/1807/24 sitagliptin phosphate 100 mg 100 mg PO DAILY 07/24/18 07/24/18 tablet (Januvia) Previous Rx's ?Medication ?Instructions ?Recorded metformin 500 mg tablet 500 mg PO BIDAC #120 tabs (Glucophage) carvedilol 12.5 mg tablet (Coreg) 12.5 mg PO BID 1 mon #60 tabs 07/03/24 losartan 100 mg tablet 100 mg PO QDAY 1 month #30 t abs 07/03/24 nifedipine 30 mg tablet,extended 30 mg PO QDAY 1 month #30 tabs 07/03/24 release 24 hr Allergies Allergy/AdvReac Type Severity Reaction Status Date / Time No Known Allergies Allergy Verified 07/18/24 12:31 Review of Systems Review of Systems Systems Reviewed: All systems reviewed, normal except as documented (Above) Past Medical History Past Medical History CARDIAC: Negative Cardiac Disorders or Congestive Heart Failure RESPIRATORY: Positive Asthma; Negative Chronic Obstructive Pulmonary Disease (COPD) GASTROINTESTINAL: Positive Cirrhosis GENITOURINARY: Negative Renal Disease ENDOCRINE: Positive Diabetes Mellitus Type 2; Negative Diabetes Mellitus Type 1 HEMATOLOGIC: Negative Sickle Cell Disease Social History SMOKING STATUS: Never smoker SUBSTANCE USE: does not use ED Exam Narrative Physical exam: General: Elderly, cooperative gentleman, no acute distress, Alert and Oriented x 3 HEENT: Mildly dry mucous membranes, oropharynx clear Neck: Supple, No masses, No JVD CVS: S1S2 Regular rate and rhythm, No murmurs, rubs or gallops Lungs: Clear to auscultation with no accessory use, no wheeze no rhonchi Abd: Soft, NT/ND, +BS, no organomegaly Ext: No edema, warm and well perfused Neuro: Cranial nerve II to XII grossly intact, no gross or focal motor or sensory deficit. Skin: No rash Psych: Appropriate mood and affect Course Quality Measures none Orders Category Date Time Status EKG (ED ONLY) *Do not use* NOW Care 07/18/24 16:11 Completed Diet Regular Diet 07/18/[address] head/brain wo con Stat Exams 07/18/24 13:31 Completed EKG (ED Only) Stat Exams 07/18/24 16:11 Draft XR chest 1V portable Stat Exams 07/18/24 13:28 Completed XR lumbar spine 1V Stat Exams 07/18/24 13:28 Completed A1C [Glycohemoglobin w (eAG)] Stat Lab 07/18/24 14:15 Completed CBC Stat Lab 07/18/24 14:15 Completed CMP [Comprehensive Metabolic Panel] Stat Lab 07/18/24 14:15 Completed Magnesium [Magnesium] Stat Lab 07/18/24 14:15 Completed Phosphorous Stat Lab 07/18/24 14:15 Completed UA [Urinalysis] Stat Lab 07/18/24 14:31 Completed Losartan [Cozaar] Med 07/18/24 15:37 Discontinued 100 mg PO X1 ONE Magnesium Sulfate 4 GM Ivpb [Magnesium Sulfate Ivpb] Med 07/18/24 15:19 Active 4 gm in 50 ml IV X1 NIFEdipine [Procardia Xl] Med 07/18/24 13:40 Discontinued 30 mg PO X1 ONE PARoxetine HCL [Paxil] Med 07/18/24 13:40 Discontinued 40 mg PO X1 ONE Ringers Lactated 1000 ml [Lactated Ringers] 1,000 ml Med 07/18/24 13:43 Discontinued IV 999 mls/hr carVEDILOL [Coreg] Med 07/18/24 15:37 Discontinued 6.25 mg PO X1 ONE hydrALAZINE INJ [Apresoline Inj] Med 07/18/24 15:45 Discontinued 10 mg IVP X1 ONE Vital Signs Vital signs: Vital Signs Temperature 98.6 F 07/18/24 12:40 Pulse Rate 72 07/18/24 12:40 Respiratory Rate 16 07/18/24 12:40 Blood Pressure 174/72 H 07/18/24 12:40 Pulse Oximetry (%) 98 07/18/24 12:40 Oxygen Delivery Method Room Air 07/18/24 12:40 Altered Mental Status MDM Narrative MDM Narrative:: The patient is a 78-year-old gentleman with past medical history of diabetes, hypertension, gout, depression, compression fraction of lumbar spine L1 with 10% height reduction, was brought in by ambulance to ED with chief complaint of altered mental status. He was found to have blood sugar of 76, and was given D10 bolus by EMS, after which his mental status started improving. As per the patient's family member, the patient was discharged home 2 weeks ago from [facility] after being treated for pneumonia and L1 compression fracture. However, the patient was not taking care of himself at his home, and is related brought him to her own home. He was improving daily, but since yesterday, he refused his medications and this morning he was lethargic and confused. His relative also suspect that the patient might have ground-level fall. The patient reported generalized weakness, lower back pain, and constipation but denied any headache, lightheadedness, chest pain, SOB, abdominal pain, leg swelling, nausea or vomiting, fever or chills. In the ED his vitals were blood pressure 174/72, pulse 72, RR 16, saturating 98% on room air. Fingerstick blood sugar was 161 hemoglobin 12.0, chemistry panel revealed sodium 142, potassium 3.6, blood sugar 101, A1c 5.6 likely strict blood sugar control leading to AMS, magnesium 1.4, ALP 152, UA was negative for UTI, but RBC 435. Head CT was negative for acute hemorrhage, midline shift or mass effect. Old appearing infarcts over left basal ganglia and right cerebellar hemisphere, right brainstem pontine level present. Chest x-ray negative for pneumothorax, or pneumonia. The patient had already received dextrose 10% drip by EMS, and was given nifedipine 30 Mg p.o. x 1, sulfate 4 g IV x 1, losartan 100 Mg p.o. x 1 hydralazine 10 Mg IV push x 1 including lactated Ringer's bolus. The patient's management plan was discussed with my attending physician MD Andi Hampton MD, PGY2 Patient data External records reviewed:: [facility] previous records Clinical information provided by:: patient, EMS and family Social determinants that could affect healthcare access:: none Patient has the following chronic illnesses:: See above How is presenting disease/condition affected by chronic disease/condition?: exacerbated by Evaluation data The following diagnostics were reviewed and interpreted by me:: lab results and radiology exam(s) Lab and/or radiology exams considered but not ordered:: None Interpretation Summary: See above Medications / Prescriptions Medications or Prescriptions considered but not ordered:: None Medication administrations:: Medication Administration History Magnesium Sulfate (Magnesium Sulfate Ivpb) 4 gm in 50 mls @ 12.5 mls/hr IV X1 ONE Stop: 07/18/24 19:18 Last Admin: 07/18/24 16:44 Dose: 12.5 mls/hr Documented By: DAA Discontinued Medications Carvedilol (Carvedilol 3.125 Mg Tablet) 6.25 mg PO X1 ONE Stop: 07/18/24 15:38 Hydralazine HCl (Hydralazine Inj 20 Mg/Ml Vial) 10 mg IVP X1 ONE Stop: 07/18/24 15:46 Last Admin: 07/18/24 16:43 Dose: 10 mg Documented By: JUANITA Lactated Ringer's (Lactated Ringers) 1,000 mls @ 999 mls/hr IV .Q1H1M ONE Stop: 07/18/24 14:43 Last Infusion: 07/18/24 16:41 Dose: Infused Documented By: Admin: 07/18/24 14:19 Dose: 999 mls/hr Documented By: JUANITA Losartan Potassium (Losartan Potassium 25 Mg Tablet) 100 mg PO X1 ONE Stop: 07/18/24 15:38 Nifedipine (Nifedipine Xl 30 Mg Tabcr) 30 mg PO X1 ONE Stop: 07/18/24 13:41 Last Admin: 07/18/24 14:19 Dose: 30 mg Documented By: JUANITA Paroxetine HCl (Paroxetine Hcl 10 Mg Tablet) 40 mg PO X1 ONE Stop: 07/18/24 13:41 Last Admin: 07/18/24 14:19 Dose: 40 mg Documented By: JUANITA See above Consultations Consultation(s) initiated? (list below): Yes Consultation #1 (Physician, Specialty, Details): Hospitalist team Dr. Wilfrido Laboy Time: 16:21 Diagnosis Differential diagnosis altered mental status: hypoglycemia, hyponatremia and subarachnoid hemorrhage Most likely diagnosis given after review of the tests above:: Hypoglycemia Dysphagia as late complication of CVA Admission Indicated Admission indicated?: indicated Admission Request Was there a request for admission?: Yes Admission Attestation Admission request attestation: Discussed case with Dr. Wilfrido Laboy from Hospitalist service regarding admission. Discussed patients ED course, exam findings, labs, and radiology results. The Hospitalist agrees to accept the patient for admission. Disposition Plan Disposition Plan: Admit Discharge Plan Plan Patient Disposition: Admit Acute Care w/in Hospital Prescriptions/Referrals Prescriptions/Med Rec: No Action paroxetine HCl [Paxil] 40 MG tablet 40 mg PO QAM Qty: 0 metformin [Glucophage] 500 MG tablet 500 mg PO BIDAC Qty: 120 0RF omeprazole 20 mg Capsule,Delayed Release(Dr/Ec) 20 mg PO QDAY pioglitazone 30 mg Tablet 30 mg PO QDAY Januvia 100 mg Tablet 100 mg PO DAILY nifedipine 30 mg Tablet Extended Release 24hr 30 mg PO QDAY 30 Days Qty: 30 0RF carvedilol [Coreg] 12.5 mg tablet 12.5 mg PO BID 30 Days Qty: 60 0RF Rx Instructions: must administer with a meal/food losartan 100 mg tablet 100 mg PO QDAY 30 Days Qty: 30 0RF Referrals: Perry Gomez MD [Primary Care Provider] - In 1 week Problem List Clinical Impression: Hypoglycemia associated with type 2 diabetes mellitus, Acute alteration in mental status, Dysphagia as late effect of cerebrovascular accident (CVA) Patient/Caregiver Discharge Instructions Print Language: Greenlandic Stand Alone Forms: Renetta Award Info., Patient Portal Info Letter
[2024-07-18] MEDS: NIFEdipine XL 30 MG TABCR PO (14:19)
[2024-07-18] MEDS: PARoxetine HCL 10 MG TABLET 40 MG PO (14:19)
[2024-07-18] MEDS: RINGERS LACTATED 1000 ML 1,000 ML 999 ML IV (14:19)
[2024-07-18 14:44] LABS: Basophils % (Auto) 0 % (0-2.5); Eosinophils # (Auto) 0.2 Thou/mm3 (0.0-0.5); Eosinophils % (Auto) 3 % (0-10); Hematocrit 35.6 % (41.0-53.0); Immature Granulocytes % (Auto) 0 % (0-0); Immature Granulocytes Auto 0.02 Thou/mm3 (0.00-0.00); Lymphocytes # (Auto) 1.3 Thou/mm3 (1.0-4.8); Lymphocytes % (Auto) 22 % (10-50); Mean Corpuscular HGB Conc 33.7 g/dl (31.0-37.0); Mean Corpuscular Hemoglobin 31.4 pg (25.0-35.0); Mean Corpuscular Volume 93 fL (80-100); Monocytes # (Auto) 0.6 Thou/mm3 (0.0-0.8); Monocytes % (Auto) 10 % (0-12); Neutrophils # (Auto) 3.9 Thou/mm3 (1.8-7.7); Neutrophils % (Auto) 64 % (37-80); Nucleated Red Blood Cell % 0 /100 WBC (0); Platelet Count 246 Thou/mm3 (140-440); RDW Standard Deviation 45.9 fL (35.1-43.9); Red Blood Count 3.82 Miln/mm3 (4.50-5.90); White Blood Count 6.1 Thou/mm3 (3.8-10.6)
[2024-07-18 14:49] LABS: Collection Type, Urine Clean Catch
[2024-07-18 15:09] LABS: Alanine Aminotransferase 12 U/L (10-49); Albumin/Globulin Ratio 1.7 (1.2-2.2); Alkaline Phosphatase 152 U/L (46-116); Anion Gap 9 (7-16); Aspartate Amino Transferase 21 U/L (0-34); BUN/Creatinine Ratio 22 Ratio (12-20); Bilirubin,Total 0.7 mg/dL (0.3-1.2); Blood Urea Nitrogen 20 mg/dL (9-23); Calcium 8.5 mg/dL (8.3-10.6); Calcium (Corrected) 8.5 mg/dL (8.5-10.1); Carbon Dioxide 28.8 mMol/L (20.0-31.0); Chloride 104 mMol/L (98-107); Creatinine (Component) 0.9 mg/dL (0.6-1.3); Estimated Creatinine Clearance 68.3 mL/min (>60); Globulin 2.3 gm/dL (2.3-3.5); Glucose 101 mg/dL (74-106); Magnesium 1.4 mg/dL (1.6-2.6); Osmolality,Calculated 285 (275-295); Phosphorous 2.8 mg/dL (2.4-5.1); Potassium 3.6 mMol/L (3.4-5.1); Sodium 142 mMol/L (136-145); Total Protein 6.3 gm/dL (5.7-8.2); eGFR > 60 See Note
[2024-07-18 15:18] LABS: Bilirubin,Urine Negative (Negative); Blood,Urine 3+ (Negative); Clarity,Urine Clear (Clear/Hazy); Color,Urine Lt-Yellow (Lt Yel-Yel); Glucose, Urine 1+ (Negative); Ketones,Urine Negative (Negative); Leukocyte Esterase,Urine Negative (Negative); Nitrite,Urine Negative (Negative); Protein,Urine Negative (Neg - Trace); RBC,Urine 435 /hpf (0-3); Specific Gravity,Urine 1.017 (1.001-1.035); Squamous Epithelial Cell,Urine < 1 /hpf (0-5); Urobilinogen,Urine Negative mg/dL (0.0-1.0); WBC,Urine 12 /hpf (0-5)
[2024-07-18 15:21] LABS: Glucose Estimated Average 114 mg/dL (80-131); Hemoglobin A1C 5.6 % Hgb (4.8-6.0)
--- NOTE | 2024-07-18 16:11 | EKG_ITS ---
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
[2024-07-18] MEDS: hydrALAZINE INJ 20 MG/ML VIAL 10 MG IVP (16:43)
[2024-07-18] MEDS: Magnesium Sulfate 4 GM Ivpb 4 GM/50 ML BAG IV (16:44)
--- NOTE | 2024-07-18 18:01 | ESHP_ITS ---
<Statement entered by Breann Bhat MD - 07/24/24 15:43> I reviewed above note and agree with findings and plans. I have also personally examined the patient with medicine team and went over assessment and plan with medical team including undergraduate internship and resident physician. Documentation for date of: 07/18/24 HPI History of Present Illness History of present illness: Mihai Monreal is a 78-year-old male with a past medical history of insulin- dependent type 2 diabetes mellitus, hypertension, GERD, and depression who presents on 07/18 after he was found to be encephalopathic by family member and brought to the ED. In the field, blood sugars noted to be in 70s and given D10 bolus after which mentation improved per report. Patient has a family member (her grandfather is patient's brother) at bedside who helped provide additional history as at bedside patient is alert and oriented x3 but cannot explain why he is in the hospital and at times does not make sense. She states that in the morning patient appeared lethargic and difficult to arouse and called EMS but prior to that he was in his usual state of health. However, upon arrival to the ED he was noted to be unable to pass his bedside nursing swallow screen that was also witnessed while at bedside while trying to drink water and is new for him. Otherwise, patient does not currently have any complaints but is difficult to obtain accurate information from him at this time. Of note, after he was discharged earlier this month, family member states that personnel or caretakers that live at patient's apartment complex had put patient on hospice and she suspects that they may be taking advantage of patient's health conditions. Thus, since 07/11, patient has been living with family member at bedside and has also since contacted [facility] in order to be a part of patient's medical decision making. In ED, blood pressure as high as 200s but saturating well on room air and afebrile. CBC largely unremarkable, chem panel largely unremarkable. UA showed 3+ blood, 435 RBC, 12 WBC, no bacteria. CXR shows some biapical pleural thickening and mildly enlarged cardiac countour. XR lumbar spine showed osteopenia. CT head showed no new changes, but did not old infarcts that were seen previously. EKG showed NSR at 87 bpm. Unable to obtain further history. Review of Systems Review of Systems Systems Reviewed: All systems reviewed, normal except as documented Exam Vital Signs Temp Pulse Resp BP Pulse Ox O2 Del Method 98.7 F 74 19 186/92 H 96 Room Air 07/18/24 15:37 07/18/24 16:43 07/18/24 15:37 07/18/24 16:43 07/18/24 15:37 07/18/24 15:37 Narrative Exam General: AOx3, no acute distress, able to speak full sentences but at times speaks tangentially HEENT: NC/AT, mucous membranes moist, bilateral sclera anicteric Cardiovascular: regular rate and rhythm, S1/S2 present, no murmurs appreciated Pulmonary: clear to auscultation bilaterally, no rales/rhonchi/wheezes Abdominal: soft, non-tender, non-distended, no rebound/guarding, normal bowel sounds present Musculoskeletal: normal ROM, no peripheral edema Skin: warm and dry, intact, no rashes Neuro: CN II-XII intact, no focal deficits Results: Labs 07/18/24 14:15 07/18/24 14:15 Labs: Short CBC 07/18/24 Range/Units 14:15 WBC 6.1 (3.8-10.6) Thou/mm3 Hgb 12.0 L (13.5-16.0) g/dL Hct 35.6 L (41.0-53.0) % Plt Count 246 D (140-440) Thou/mm3 BMP 07/18/24 14:15 Sodium 142 Potassium 3.6 Chloride 104 Carbon Dioxide 28.8 BUN 20 Creatinine 0.9 Glucose 101 Calcium 8.5 Liver Function 07/18/24 Range/Units 14:15 Total Bilirubin 0.7 (0.3-1.2) mg/dL AST 21 (0-34) U/L ALT 12 (10-49) U/L Alkaline Phosphatase 152 H (46-116) U/L Albumin 4.0 (3.4-4.8) gm/dL Urine 07/18/24 Range/Units 14:31 Urine Color Lt-Yellow (Lt Yel-Yel) Urine Clarity Clear (Clear/Hazy) Urine pH 7.0 (5.0-7.0) Ur Specific [place] 1.017 (1.001-1.035) Urine Protein Negative (Neg - Trace) Urine Glucose (UA) 1+ A (Negative) Quality Measures Quality Measures none Advance care planning discussed with:: patient and other (grand-niece) Medications Home Medications and Allergies Home Medications ?Medication ?Instructions ?Recorded ?Confirmed ?Type paroxetine HCl 40 mg tablet (Paxil) 40 mg PO QAM #0 ta bs 07/02/13 07/18/24 History omeprazole 20 mg capsule,delayed 20 mg PO QDAY 9 07/24/18 History release pioglitazone 30 mg tablet 30 mg PO QDAY 07/24/1807/24 History sitagliptin phosphate 100 mg 100 mg PO DAILY 07/24/18 07/24/18 History tablet (Januvia) ramipril 10 mg capsule 10 mg PO QDAY 07/18/2407/18 History simvastatin 40 mg tablet 40 mg PO QDAY 07/18/2407/18 History trazodone 50 mg tablet 50 mg PO HS 07/18/24 5 History Allergies Allergy/AdvReac Type Severity Reaction Status Date / Time No Known Allergies Allergy Verified 07/18/24 12:31 Visit Medications Acetaminophen (Acetaminophen Supp 650 Mg Supp) 650 mg KS Q6HR PRN PRN Reason: PAIN OR FEVER > 100.4 Stop: 08/17/24 17:55 Dextrose (Dextrose 50%-Water Inj 50 Ml Syringe) 25 ml IV Q15MIN PRN PRN Reason: BG 50-70 responsive npo pt Stop: 08/17/24 17:59 Dextrose (Dextrose 50%-Water Inj 50 Ml Syringe) 50 ml IV Q15MIN PRN PRN Reason: BG <50 OR BG <70 & pt unresponsive Stop: 08/17/24 17:59 Magnesium Sulfate (Magnesium Sulfate Ivpb) 4 gm in 50 mls @ 12.5 mls/hr IV X1 ONE Stop: 07/18/24 19:18 Last Admin: 07/18/24 16:44 Dose: 12.5 mls/hr Lactated Ringer's (Lactated Ringers) 1,000 mls @ 75 mls/hr IV .[id number] BRIDGET Stop: 08/17/24 17:59 Ondansetron HCl (Ondansetron Inj 2 Mg/Ml Inj 2 Ml) 4 mg IVP Q6H PRN; Protocol PRN Reason: NAUSEA OR VOMITING Stop: 08/17/24 17:55 Pantoprazole Sodium (Pantoprazole Inj 40 Mg Vial) 40 mg IVP QDAY BRIDGET Stop: 08/18/24 08:59 Discontinued Medications Carvedilol (Carvedilol 3.125 Mg Tablet) 6.25 mg PO X1 ONE Stop: 07/18/24 15:38 Last Admin: 07/18/24 17:13 Dose: Not Given Hydralazine HCl (Hydralazine Inj 20 Mg/Ml Vial) 10 mg IVP X1 ONE Stop: 07/18/24 15:46 Last Admin: 07/18/24 16:43 Dose: 10 mg Lactated Ringer's (Lactated Ringers) 1,000 mls @ 999 mls/hr IV .Q1H1M ONE Stop: 07/18/24 14:43 Last Infusion: 07/18/24 16:41 Dose: Infused Losartan Potassium (Losartan Potassium 25 Mg Tablet) 100 mg PO X1 ONE Stop: 07/18/24 15:38 Last Admin: 07/18/24 16:55 Dose: Not Given Nifedipine (Nifedipine Xl 30 Mg Tabcr) 30 mg PO X1 ONE Stop: 07/18/24 13:41 Last Admin: 07/18/24 14:19 Dose: 30 mg Paroxetine HCl (Paroxetine Hcl 10 Mg Tablet) 40 mg PO X1 ONE Stop: 07/18/24 13:41 Last Admin: 07/18/24 14:19 Dose: 40 mg Assessment & Plan Plan Mihai Monreal is a 78-year-old male with a past medical history of type 2 diabetes mellitus, hypertension, GERD, and depression who presents on 07/18 after he was found to be encephalopathic by family member and brought to the ED. Admitted for further management of acute encephalopathy, hypertensive emergency, and new onset dysphagia. #Acute encephalopathy, possibly due to hypertensive emergency vs relative hypoglycemia, improving Some improvement seen. At bedside in ED, patient is alert oriented x 3 and conversational but at times is tangential and does not answer appropriately. CT head showed no new infarcts compared to CT obtained earlier this month nor hemorrhage, mass effect, midline shift. UA has 12 WBC but mostly RBC with no bacteria seen and CXR without signs of pneumonia. No leukocytosis and patient afebrile. Thus, less likely infectious etiology and may be due to hypertensive emergency. ? Continue to monitor closely ? Address hypertension, see plan as below ? Follow-up bladder scan #Hypertensive emergency #History of hypertension SBP in 200s in ED, given hydralazine 10 mg IV x1 and nifedipine 30 mg x1 in ED. Home carvedilol, lisinopril, and nifedipine held given n.p.o. status ? Labetalol 10 mg IVP as needed for SBP > 180 or DBP > 110 ? Will resume home medications pending speech swallow evaluation #New onset dysphagia Failed nurse swallow screen and witnessed at bedside while trying to drink water. ? N.p.o., including medications ? Pending speech swallow evaluation ? LR at 75 cc/hr #Type 2 diabetes mellitus A1c 5.6% ? SSI, Accu-checks q6h ? Hypoglycemic protocol in place #GERD ? Pantoprazole IV daily #Depression ? Paroxetine 40 mg p.o. daily -> held Hospital management: Disposition: observation, pending speech swallow evaluation Fluids: LR at 75 cc/hr Diet: NPO Lines: PIV DVT prophylaxis: SCDs GI prophylaxis: pantoprazole IV CODE STATUS: full code ----- Plan discussed with attending physician Dr. Perlita aLboy MD PGY-1 Internal Medicine
[2024-07-18] MEDS: RINGERS LACTATED 1000 ML 1,000 ML 75 ML IV (18:13)
[2024-07-18 19:42] LABS: COVID-19 Antigen (In-House) Negative (Negative)
[2024-07-18] MEDS: DEXTROSE 50%-WATER INJ 50 ML SYRINGE 25 ML IV (23:30)
[2024-07-19] VITALS (7 sets, daily range): BP systolic 128–176; BP diastolic 61–93; PULSE 79–88; RESP 16–18; TEMP 36.2–36.4; O2SAT 95–99; BMI 23.7; BMI 23.6
--- NOTE | 2024-07-19 00:20 | PC.NURSE ---
attempting to do admission information, pt confused a/ox1 and unable to response appropriately to questions asked. Attempted to contact next of kin on file, no response. Also unable to do med rec. Will pass information on to day team.
--- NOTE | 2024-07-19 00:39 | PC.NURSE ---
Report from ER nurse and MD note state pt is A/Ox3, however when pt arrived to floor he was A/Ox1 and difficult to keep his attention, is lethargic. Dr fraser was notified and came to bedside. Vipin states he is not concerned as patient came to hospital for AMS.
[2024-07-19 06:13] LABS: Basophils % (Auto) 0 % (0-2.5); Eosinophils # (Auto) 0.1 Thou/mm3 (0.0-0.5); Eosinophils % (Auto) 2 % (0-10); Hematocrit 36.9 % (41.0-53.0); Hemoglobin 12.8 g/dL (13.5-16.0); Immature Granulocytes % (Auto) 1 % (0-0); Immature Granulocytes Auto 0.04 Thou/mm3 (0.00-0.00); Lymphocytes # (Auto) 1.3 Thou/mm3 (1.0-4.8); Lymphocytes % (Auto) 17 % (10-50); Mean Corpuscular HGB Conc 34.7 g/dl (31.0-37.0); Mean Corpuscular Hemoglobin 31.4 pg (25.0-35.0); Mean Corpuscular Volume 90 fL (80-100); Monocytes # (Auto) 0.8 Thou/mm3 (0.0-0.8); Monocytes % (Auto) 10 % (0-12); Neutrophils # (Auto) 5.2 Thou/mm3 (1.8-7.7); Neutrophils % (Auto) 71 % (37-80); Nucleated Red Blood Cell % 0 /100 WBC (0); Platelet Count 218 Thou/mm3 (140-440); RDW Standard Deviation 44.3 fL (35.1-43.9); Red Blood Count 4.08 Miln/mm3 (4.50-5.90); White Blood Count 7.4 Thou/mm3 (3.8-10.6)
[2024-07-19 06:25] LABS: Glucose Estimated Average 114 mg/dL (80-131); Hemoglobin A1C 5.6 % Hgb (4.8-6.0)
[2024-07-19 06:36] LABS: Alanine Aminotransferase 12 U/L (10-49); Albumin/Globulin Ratio 1.5 (1.2-2.2); Alkaline Phosphatase 159 U/L (46-116); Anion Gap 14 (7-16); Aspartate Amino Transferase 24 U/L (0-34); BUN/Creatinine Ratio 13 Ratio (12-20); Blood Urea Nitrogen 9 mg/dL (9-23); Calcium 8.7 mg/dL (8.3-10.6); Calcium (Corrected) 8.7 mg/dL (8.5-10.1); Carbon Dioxide 24.2 mMol/L (20.0-31.0); Cardiac Risk Estimate 3.9 RATIO (4.0-6.7); Chloride 104 mMol/L (98-107); Cholesterol 143 mg/dL (132-200); Creatinine (Component) 0.7 mg/dL (0.6-1.3); Estimated Creatinine Clearance 88.4 mL/min (>60); Globulin 2.6 gm/dL (2.3-3.5); Glucose 98 mg/dL (74-106); HDL Cholesterol 37 mg/dL (40-60); LDL Cholesterol,Calculated 89 mg/dL (0-130); Magnesium 1.8 mg/dL (1.6-2.6); Osmolality,Calculated 281 (275-295); Phosphorous 2.6 mg/dL (2.4-5.1); Potassium 3.6 mMol/L (3.4-5.1); Sodium 142 mMol/L (136-145); Thyroid Stimulating Hormone 2.02 uIU/mL (0.55-4.78); Total Protein 6.6 gm/dL (5.7-8.2); Triglycerides 83 mg/dL (30-150); eGFR > 60 See Note
[2024-07-19] MEDS: PANTOPRAZOLE INJ 40 MG VIAL IVP (09:26)
--- NOTE | 2024-07-19 11:54 | PC.SS ---
Mihai Monreal is a 78-year-old male admitted to [facility] for Hypertensive Emergency, Dysphgia. SS conducted bedside contact with the patient to complete initial assessment and to discuss discharge planning. Role and reason explained. Pt nephew, Wilman Guerra [phone], accompanied pt. Wilman answered on the pts behalf. Wilman confirmed demographic information. Wilman stated pt was recently DC home with HH, but pt was unable to care for himself therefore Wilman took the pt to his home where he and his Rika Izaguirre [phone] have been caring for the pt. Wilman reports Rika Izaguirre is the pts surrogate decision maker. DC options discussed and they wish to transition the pt to short-term rehab. No preference. SS poke to pt kyle Meléndez, who states the pt does have medi-michelle, SS requested for her to bring in to update chart. SS pending PT eval to submit for SNF. DC plan: SNF DM: Jennifer Izaguirre [phone] Address: [address] [place] [address] (currently staying) ?
--- NOTE | 2024-07-19 12:38 | ESPR_ITS ---
<Statement entered by Breann Bhat MD - 07/24/24 15:44> I reviewed above note and agree with findings and plans. I have also personally examined the patient with medicine team and went over assessment and plan with medical team including internal specialist and resident physician. Documentation for date of: 07/19/24 Subjective Subjective Interval history: Patient was seen and examined at bedside this morning. No acute overnight events. Labs today look fairly unremarkable. Patient had his speech evaluation done today and he passed his speech evaluation and was recommended to be placed on dysphagia mechanically soft diet. Otherwise patient today is AO x 3 and did not have any new complaints at this time. Patient does seem a little bit weak therefore he would likely benefit from possible group home facility, but will await PT recommendations. Exam Vital Signs Temp Pulse Resp BP Pulse Ox O2 Del Method 97.1 F 79 18 141/72 H 96 Room Air 07/19/24 12:00 07/19/24 12:00 07/19/24 12:00 07/19/24 12:00 07/19/24 12:00 07/19/24 12:00 Narrative Exam General: A/O x3, no acute distress, frail Eyes: PERRL, EOMI. Anicteric, vision grossly intact. Ears: No ear pain, no ear discharge, Hearing grossly intact. Nose: No nasal discharge. Mouth/Throat: Moist mucous membranes, no redness, no lesions. Neck: Neck supple, non-tender, no cervical lymphadenopathy. Lungs: Clear AZCKARY to auscultation and percussion, No accessory muscle use. Cardio: Normal S1/S2, regular rhythm, no murmurs, no JVD Abdomen: Soft, non-tender, no palpable masses, peristalsis present, no guarding or rebound. Extremities: Symmetrical, no significant deformities, no peripheral edema , non-tender, peripheral pulses presents. Skin: No rashes, no lesions, warm to touch. Neuro: No focal neurological deficits. strength 4/5 ZACKARY UE and LE. Motor and sensory intact Psych: slow speech and reaction, flat affect Objective Labs 07/19/24 04:49 07/19/24 04:49 Labs: Laboratory Results - last 24 hr 07/18/24 07/18/24 07/18/24 14:15 14:31 18:35 WBC 6.1 RBC 3.82 L Hgb 12.0 L Hct 35.6 L MCV 93 MCH 31.4 MCHC 33.7 RDW Std Deviation 45.9 H Plt Count 246 D Neut % (Auto) 64 Lymph % (Auto) 22 [place] % (Auto) 10 Eos % (Auto) 3 Baso % (Auto) 0 Neut # (Auto) 3.9 Lymph # (Auto) 1.3 [place] # (Auto) 0.6 Eos # (Auto) 0.2 Baso # (Auto) 0.0 Immature Gran # (Auto) 0.02 H Absolute Nucleated RBC 0.00 Immature Gran % 0 Nucleated RBC % 0 Sodium 142 Potassium 3.6 Chloride 104 Carbon Dioxide 28.8 Anion Gap 9 BUN 20 Creatinine 0.9 Estim Creat Clear Calc 68.3 eGFR > 60 BUN/Creatinine Ratio [address] Glucose [address] Glu mg/dL 114 Hemoglobin A1c 5.6 Calculated Osmolality 285 Calcium 8.5 Corrected Calcium 8.5 Phosphorus 2.8 Magnesium 1.4 L Total Bilirubin 0.7 AST 21 ALT 12 Alkaline Phosphatase 152 H Total Protein 6.3 Albumin 4.0 Globulin 2.3 Albumin/Globulin Ratio 1.7 Triglycerides Cholesterol LDL Cholesterol, Calc HDL Cholesterol Cholesterol/HDL Ratio TSH Ur Collection Type Clean Catch Urine Color Lt-Yellow Urine Clarity Clear Urine pH 7.0 Ur Specific [place] 1.017 Urine Protein Negative Urine Glucose (UA) 1+ A Urine Ketones Negative Urine Blood 3+ A Urine Nitrite Negative Urine Bilirubin Negative Urine Urobilinogen (Auto) Negative Ur Leukocyte Esterase Negative Urine RBC 435 H Urine WBC 12 H Ur Squamous Epith Cells < 1 Urine Bacteria None SARS-CoV-2 Ag (Rapid) Negative 07/19/24 04:49 WBC 7.4 RBC 4.08 L Hgb 12.8 L Hct 36.9 L MCV 90 MCH 31.4 MCHC 34.7 RDW Std Deviation 44.3 H Plt Count 218 Neut % (Auto) 71 Lymph % (Auto) 17 [place] % (Auto) 10 Eos % (Auto) 2 Baso % (Auto) 0 Neut # (Auto) 5.2 Lymph # (Auto) 1.3 [place] # (Auto) 0.8 Eos # (Auto) 0.1 Baso # (Auto) 0.0 Immature Gran # (Auto) 0.04 H Absolute Nucleated RBC 0.00 Immature Gran % 1 H Nucleated RBC % 0 Sodium 142 Potassium 3.6 Chloride 104 Carbon Dioxide 24.2 Anion Gap 14 BUN 9 Creatinine 0.7 Estim Creat Clear Calc 88.4 eGFR > 60 BUN/Creatinine Ratio [address] Glu mg/dL 114 Hemoglobin A1c 5.6 Calculated Osmolality 281 Calcium 8.7 Corrected Calcium 8.7 Phosphorus 2.6 Magnesium 1.8 Total Bilirubin 1.0 AST 24 ALT 12 Alkaline Phosphatase 159 H Total Protein 6.6 Albumin 4.0 Globulin 2.6 Albumin/Globulin Ratio 1.5 Triglycerides 83 Cholesterol 143 LDL Cholesterol, Calc 89 HDL Cholesterol 37 L Cholesterol/HDL Ratio 3.9 L TSH 2.02 D Ur Collection Type Urine Color Urine Clarity Urine pH Ur Specific [place] Urine Protein Urine Glucose (UA) Urine Ketones Urine Blood Urine Nitrite Urine Bilirubin Urine Urobilinogen (Auto) Ur Leukocyte Esterase Urine RBC Urine WBC Ur Squamous Epith Cells Urine Bacteria SARS-CoV-2 Ag (Rapid) Quality Measures Quality Measures none Advance care planning discussed with:: patient Assessment & Plan Assessment Current Active Medications: Generic Name Dose Route Start Last Admin Trade Name Freq PRN Reason Stop Dose Admin Acetaminophen 650 mg 07/18/24 17:56 Acetaminophen Supp 650 Mg Supp ID 08/17/24 17:55 Q6HR PRN PAIN OR FEVER > 100.4 Atorvastatin Calcium 20 mg 07/18/24 21:00 Atorvastatin Calcium 20 Mg Tablet PO 08/17/24 20:59 HS [facility] Carvedilol 12.5 mg 07/18/24 19:40 07/18/24 20:35 Carvedilol 12.5 Mg Tablet PO 08/17/24 19:39 Not Given BIDWM [facility] Dextrose 25 ml 07/18/24 18:00 07/18/24 23:30 Dextrose 50%-Water Inj 50 Ml Syringe IV 08/17/24 17:59 25 ml Q15MIN PRN Administration BG 50-70 responsive npo pt Dextrose 50 ml 07/18/24 18:00 Dextrose 50%-Water Inj 50 Ml Syringe IV 08/17/24 17:59 Q15MIN PRN BG <50 OR BG <70 & pt unresponsive Glucagon 1 mg 07/18/24 18:00 Glucagon Inj 1 Mg Vial IM Q15MIN PRN BG <70, and no IV access Insulin Human Lispro 0 unit 07/18/24 18:00 07/19/24 05:57 Insulin Lispro (Admelog) 1 Unit/0.01 Ml Unit SC 08/17/24 17:59 Not Given Q6HR BRIDGET Protocol Labetalol HCl 20 mg 07/18/24 20:05 Labetalol Inj 5 Mg/Ml Vial 20 Ml IVP 08/17/24 20:04 Q10M PRN Hypertension Lisinopril 40 mg 07/19/24 09:00 Lisinopril 20 Mg Tablet PO 08/18/24 08:59 QDAY BRIDGET Nifedipine 30 mg 07/19/24 09:00 Nifedipine Xl 30 Mg Tabcr PO 08/18/24 08:59 QDAY BRIDGET Ondansetron HCl 4 mg 07/18/24 17:56 Ondansetron Inj 2 Mg/Ml Inj 2 Ml IVP 08/17/24 17:55 Q6H PRN NAUSEA OR VOMITING Protocol Pantoprazole Sodium 40 mg 07/19/24 09:00 07/19/24 09:26 Pantoprazole Inj 40 Mg Vial IVP 08/18/24 08:59 40 mg QDAY BRIDGET Administration Paroxetine HCl 40 mg 07/19/24 09:00 Paroxetine Hcl 10 Mg Tablet PO 08/18/24 08:59 QAM BRIDGET Trazodone HCl 50 mg 07/18/24 21:00 Trazodone Hcl 50 Mg Tablet PO 08/17/24 20:59 HS BRIDGET Plan 78-year-old male with a past medical history of type 2 diabetes mellitus, hypertension, GERD, and depression was admitted on 07/18/2024 for hypertensive emergency, dysphagia, and acute encephalopathy which resolved. #New onset dysphagia, resolved Failed nurse swallow screen and witnessed at bedside while trying to drink water. Patient had speech therapy coming today and patient was able to pass the speech evaluation. Plan: Started dysphagia 3 diet carb consistent Will continue to monitor #Acute encephalopathy, resolved Initially in the ED patient had complaints of altered mental status at home, but on initial assessment he was AO x 3 CT head showed no new infarcts compared to CT obtained earlier this month nor hemorrhage, mass effect, midline shift. Acute cephalopathy could have been in the setting of hypertensive emergency Plan: ?Will continue to monitor for now #Hypertensive emergency, improving #History of hypertension SBP in 200s in ED He was given hydralazine 10 mg IV x1 and nifedipine 30 mg x1 in ED. BP this a.m. was 170s over 80s and in the afternoon it was 140s over 70s Plan: Restart patient's carvedilol 12.5 mg twice daily and lisinopril 40 mg p.o. daily Will continue holding nifedipine 30 mg daily to not drop blood pressure below 120. Will consider restarting nifedipine 30 mg daily if still hypertensive tomorrow. #Normocytic normochromic anemia Patient's hemoglobin 12.8 today and baseline is around 13.6 on 07/03/2024 No active signs of bleeding Plan: Will continue to monitor Will transfuse if hemoglobin less than 7 # DM2 A1c 5.6% Plan: ? SSI, Accu-checks q6h ? Hypoglycemic protocol in place #GERD ? Pantoprazole #Depression ? Restarted trazodone 50 at bedtime and paroxetine 40 mg p.o. daily Disposition: Pending PT. Diet: dysphagia 3 GI prophylaxis: protonix DVT prophylaxis: SCDs Code: Full Case disclosed with Attending Dr. Perlita Owens PGY1 Disclaimer: Even though this this note was dictated by speech recognition and even though it was carefully revised there may still be minor errors in wet sander due to voice recognition software.
--- NOTE | 2024-07-19 15:14 | PC.SS ---
Rounding: Pending PT eval, will need SNF referral sent and PASRR
--- NOTE | 2024-07-19 15:34 | PC.SS ---
SNF referral submitted, SS will need to UPDATE ARIANA with PT Notes once available. Pt will require auth for SNF.
--- NOTE | 2024-07-19 15:40 | PC.CC ---
PASRR Level 1 complete and downloaded. Level 2 review is pending.
[2024-07-19] MEDS: carVEDILOL 12.5 MG TABLET PO (18:08)
[2024-07-19] MEDS: ATORVASTATIN CALCIUM 20 MG TABLET PO (20:44)
[2024-07-19] MEDS: traZODone HCL 50 MG TABLET PO (20:44)
[2024-07-20] VITALS (8 sets, daily range): BP systolic 129–174; BP diastolic 64–98; PULSE 67–83; RESP 15–18; TEMP 35.9–36.9; O2SAT 94–99
[2024-07-20 05:31] LABS: Basophils % (Auto) 1 % (0-2.5); Eosinophils # (Auto) 0.3 Thou/mm3 (0.0-0.5); Eosinophils % (Auto) 6 % (0-10); Hematocrit 35.5 % (41.0-53.0); Immature Granulocytes % (Auto) 0 % (0-0); Immature Granulocytes Auto 0.01 Thou/mm3 (0.00-0.00); Lymphocytes # (Auto) 1.4 Thou/mm3 (1.0-4.8); Lymphocytes % (Auto) 25 % (10-50); Mean Corpuscular HGB Conc 33.8 g/dl (31.0-37.0); Mean Corpuscular Hemoglobin 31.5 pg (25.0-35.0); Mean Corpuscular Volume 93 fL (80-100); Monocytes # (Auto) 0.7 Thou/mm3 (0.0-0.8); Monocytes % (Auto) 12 % (0-12); Neutrophils # (Auto) 3.2 Thou/mm3 (1.8-7.7); Neutrophils % (Auto) 56 % (37-80); Nucleated Red Blood Cell % 0 /100 WBC (0); Platelet Count 228 Thou/mm3 (140-440); RDW Standard Deviation 46.7 fL (35.1-43.9); Red Blood Count 3.81 Miln/mm3 (4.50-5.90); White Blood Count 5.7 Thou/mm3 (3.8-10.6)
[2024-07-20 06:09] LABS: Alanine Aminotransferase 12 U/L (10-49); Albumin, Serum 3.8 gm/dL (3.4-4.8); Albumin/Globulin Ratio 1.7 (1.2-2.2); Alkaline Phosphatase 141 U/L (46-116); Anion Gap 11 (7-16); Aspartate Amino Transferase 19 U/L (0-34); BUN/Creatinine Ratio 12 Ratio (12-20); Bilirubin,Total 1.1 mg/dL (0.3-1.2); Blood Urea Nitrogen 11 mg/dL (9-23); Calcium 8.7 mg/dL (8.3-10.6); Calcium (Corrected) 8.9 mg/dL (8.5-10.1); Carbon Dioxide 25.1 mMol/L (20.0-31.0); Chloride 108 mMol/L (98-107); Creatinine (Component) 0.9 mg/dL (0.6-1.3); Estimated Creatinine Clearance 68.7 mL/min (>60); Globulin 2.3 gm/dL (2.3-3.5); Glucose 113 mg/dL (74-106); Magnesium 1.7 mg/dL (1.6-2.6); Osmolality,Calculated 287 (275-295); Phosphorous 2.7 mg/dL (2.4-5.1); Potassium 3.8 mMol/L (3.4-5.1); Sodium 144 mMol/L (136-145); Total Protein 6.1 gm/dL (5.7-8.2); eGFR > 60 See Note
--- NOTE | 2024-07-20 07:50 | ESPR_ITS ---
<Statement entered by Breann Bhat MD - 07/24/24 15:45> I reviewed above note and agree with findings and plans. I have also personally examined the patient with medicine team and went over assessment and plan with medical team including phd intern and resident physician. Documentation for date of: 07/20/24 Subjective Subjective Interval history: Patient was seen and examined at bedside this morning. No acute overnight events. Patient's blood pressure yesterday in the afternoon was well- controlled, and that this morning it was elevated again elevated in the 170s over 90s. Will see if patient has lisinopril and carvedilol controlled blood pressure before doing any further changes. Otherwise patient's labs look fairly unremarkable. Patient has been eating all his meals without difficulty. Otherwise no new complaints. Physical therapy recommended a [facility] facility. Exam Vital Signs Temp Pulse Resp BP Pulse Ox O2 Del Method 97.5 F 83 18 174/98 H 96 Room Air 07/20/24 04:00 07/20/24 04:00 07/20/24 04:00 07/20/24 04:00 07/20/24 04:00 07/20/24 04:00 Narrative Exam General: A/O x3, no acute distress, frail Eyes: PERRL, EOMI. Anicteric, vision grossly intact. Ears: No ear pain, no ear discharge, Hearing grossly intact. Nose: No nasal discharge. Mouth/Throat: Moist mucous membranes, no redness, no lesions. Neck: Neck supple, non-tender, no cervical lymphadenopathy. Lungs: Clear ZACKARY to auscultation and percussion, No accessory muscle use. Cardio: Normal S1/S2, regular rhythm, no murmurs, no JVD Abdomen: Soft, non-tender, no palpable masses, peristalsis present, no guarding or rebound. Extremities: Symmetrical, no significant deformities, no peripheral edema , non-tender, peripheral pulses presents. Skin: No rashes, no lesions, warm to touch. Neuro: No focal neurological deficits. strength 4/5 ZACKARY UE and LE. Motor and sensory intact Psych: slow speech and reaction Objective Labs 07/20/24 04:20 07/20/24 04:20 Labs: Laboratory Results - last 24 hr 07/20/24 04:20 WBC 5.7 RBC 3.81 L Hgb 12.0 L Hct 35.5 L MCV 93 MCH 31.5 MCHC 33.8 RDW Std Deviation 46.7 H Plt Count 228 Neut % (Auto) 56 Lymph % (Auto) 25 Ashe % (Auto) 12 Eos % (Auto) 6 Baso % (Auto) 1 Neut # (Auto) 3.2 Lymph # (Auto) 1.4 Ashe # (Auto) 0.7 Eos # (Auto) 0.3 Baso # (Auto) 0.0 Immature Gran # (Auto) 0.01 H Absolute Nucleated RBC 0.00 Immature Gran % 0 Nucleated RBC % 0 Sodium 144 Potassium 3.8 Chloride 108 H Carbon Dioxide 25.1 Anion Gap 11 BUN 11 Creatinine 0.9 Estim Creat Clear Calc 68.7 eGFR > 60 BUN/Creatinine Ratio 12 Glucose 113 H Calculated Osmolality 287 Calcium 8.7 Corrected Calcium 8.9 Phosphorus 2.7 Magnesium 1.7 Total Bilirubin 1.1 AST 19 ALT 12 Alkaline Phosphatase 141 H Total Protein 6.1 Albumin 3.8 Globulin 2.3 Albumin/Globulin Ratio 1.7 Quality Measures Quality Measures none Advance care planning discussed with:: patient Assessment & Plan Assessment Current Active Medications: Generic Name Dose Route Start Last Admin Trade Name Freq PRN Reason Stop Dose Admin Acetaminophen 650 mg 07/18/24 17:56 Acetaminophen Supp 650 Mg Supp [place] 08/17/24 17:55 Q6HR PRN PAIN OR FEVER > 100.4 Atorvastatin Calcium 20 mg 07/18/24 21:00 07/19/24 20:44 Atorvastatin Calcium 20 Mg Tablet PO 08/17/24 20:59 20 mg HS BRIDGET Administration Carvedilol 12.5 mg 07/18/24 19:40 07/19/24 18:08 Carvedilol 12.5 Mg Tablet PO 08/17/24 19:39 12.5 mg BIDWM BRIDGET Administration Dextrose 25 ml 07/18/24 18:00 07/18/24 23:30 Dextrose 50%-Water Inj 50 Ml Syringe IV 08/17/24 17:59 25 ml Q15MIN PRN Administration BG 50-70 responsive npo pt Dextrose 50 ml 07/18/24 18:00 Dextrose 50%-Water Inj 50 Ml Syringe IV 08/17/24 17:59 Q15MIN PRN BG <50 OR BG <70 & pt unresponsive Glucagon 1 mg 07/18/24 18:00 Glucagon Inj 1 Mg Vial IM Q15MIN PRN BG <70, and no IV access Magnesium Sulfate 2 gm in 50 mls @ 25 mls/hr 07/20/24 07:18 Magnesium Sulfate Ivpb IV 07/20/24 09:17 X1 ONE Insulin Human Lispro 0 unit 07/18/24 18:00 07/20/24 06:31 Insulin Lispro (Admelog) 1 Unit/0.01 Ml Unit SC 08/17/24 17:59 Not Given Q6HR BRIDGET Protocol Labetalol HCl 20 mg 07/18/24 20:05 Labetalol Inj 5 Mg/Ml Vial 20 Ml IVP 08/17/24 20:04 Q10M PRN Hypertension Lisinopril 40 mg 07/19/24 09:00 Lisinopril 20 Mg Tablet PO 08/18/24 08:59 QDAY BRIDGET Nifedipine 30 mg 07/19/24 09:00 Nifedipine Xl 30 Mg Tabcr PO 08/18/24 08:59 QDAY BRIDGET Ondansetron HCl 4 mg 07/18/24 17:56 Ondansetron Inj 2 Mg/Ml Inj 2 Ml IVP 08/17/24 17:55 Q6H PRN NAUSEA OR VOMITING Protocol Pantoprazole Sodium 40 mg 07/20/24 09:00 Pantoprazole 40 Mg Tablet PO 08/19/24 08:59 QDAY BRIDGET Paroxetine HCl 40 mg 07/19/24 09:00 Paroxetine Hcl 10 Mg Tablet PO 08/18/24 08:59 QAM BRIDGET Trazodone HCl 50 mg 07/18/24 21:00 07/19/24 20:44 Trazodone Hcl 50 Mg Tablet PO 08/17/24 20:59 50 mg HS BRIDGET Administration Plan 78-year-old male with a past medical history of type 2 diabetes mellitus, hypertension, GERD, and depression was admitted on 07/18/2024 for hypertensive emergency, dysphagia, and acute encephalopathy which resolved. #New onset dysphagia, resolved Failed nurse swallow screen and witnessed at bedside while trying to drink water. Patient had speech therapy coming today and patient was able to pass the speech evaluation. Eating without difficulties Plan: [place] dysphagia 3 diet carb consistent Will continue to monitor #Acute encephalopathy, resolved Initially in the ED patient had complaints of altered mental status at home, but on initial assessment he was AO x 3 CT head showed no new infarcts compared to CT obtained earlier this month nor hemorrhage, mass effect, midline shift. Acute cephalopathy could have been in the setting of hypertensive emergency Plan: ?Will continue to monitor for now #Hypertensive emergency, improving #History of hypertension SBP in 200s in ED He was given hydralazine 10 mg IV x1 and nifedipine 30 mg x1 in ED. BP this a.m. was 170s over 80s and in the afternoon it was 140s over 70s Plan: Continue patient's carvedilol 12.5 mg twice daily and lisinopril 40 mg p.o. daily Will continue holding nifedipine 30 mg daily for now until we see how patient does on the carvedilol and lisinopril Will consider restarting nifedipine 30 mg daily if still hypertensive in the evening #Normocytic normochromic anemia Patient's hemoglobin 12 today and baseline is around 13.6 on 07/03/2024 No active signs of bleeding Plan: Will continue to monitor Will transfuse if hemoglobin less than 7 # DM2 A1c 5.6% Plan: ? SSI, Accu-checks q6h ? Hypoglycemic protocol in place #GERD ? Pantoprazole #Depression ? Continue trazodone 50 at bedtime and paroxetine 40 mg p.o. daily Disposition: Pending SNF. Diet: dysphagia 3 GI prophylaxis: protonix DVT prophylaxis: SCDs Code: Full Case disclosed with Attending Dr. Perlita Owens PGY1 Disclaimer: Even though this this note was dictated by speech recognition and even though it was carefully revised there may still be minor errors in superintendent operating due to voice recognition software.
[2024-07-20] MEDS: PARoxetine HCL 10 MG TABLET 40 MG PO (08:10)
[2024-07-20] MEDS: Magnesium Sulfate 2 GM Ivpb 2 GM/50 ML BAG IV (08:10)
[2024-07-20] MEDS: Lisinopril 20 MG TABLET 40 MG PO (08:11)
[2024-07-20] MEDS: PANTOPRAZOLE 40 MG TABLET PO (08:11)
[2024-07-20] MEDS: carVEDILOL 12.5 MG TABLET PO ×2 (08:11→17:53)
[2024-07-20] MEDS: ATORVASTATIN CALCIUM 20 MG TABLET PO (20:57)
[2024-07-20] MEDS: traZODone HCL 50 MG TABLET PO (20:57)
[2024-07-21] VITALS (9 sets, daily range): BP systolic 139–160; BP diastolic 75–91; PULSE 67–97; RESP 17–18; TEMP 36.2–36.9; O2SAT 94–99
[2024-07-21] MEDS: PANTOPRAZOLE 40 MG TABLET PO (08:05)
[2024-07-21] MEDS: PARoxetine HCL 10 MG TABLET 40 MG PO (08:05)
[2024-07-21] MEDS: carVEDILOL 12.5 MG TABLET PO ×2 (08:05→18:04)
[2024-07-21] MEDS: Lisinopril 20 MG TABLET 40 MG PO (08:06)
--- NOTE | 2024-07-21 10:48 | PC.SS ---
Addendum entered by Genoveva Guevara 07/21/24 13:00: SS met with patient and niece Abena at bedside to confirm SNF of choice, [facility] is preference. SS informed patient and niece Abena, insurance auth to be initiated tomorrow, 07/22/24 due to [employer] being closed during the weekend. Addendum entered by Genoveva Guevara 07/21/24 10:58: PASRR level 2 closed out with [place] [facility] [phone]. Original Note: Dr. Bhat and Dr. Murillo inquiring about SNF placement. SS attempted to connect with [employer] subcontracts manager, a message was left requesting a return call. [facility] blade operator informed SS [employer] Hydraulic Hammer Operator are unavailable on the weekend. SS contacted patient's niece Rika to confirm SNF of choice. Accepting facilities are [facility], and [facility]. Rika stated patient's other niece Abena will be at bedside within an hour to discuss SNF choices with patient. SS informed Rika and Abena patient is still pending insurance auth. that will be initiated 07/22/24. Dr. Murillo informed of SNF auth. pending for 07/22/24 due to [employer] being closed on weekends.
--- NOTE | 2024-07-21 10:52 | ESPR_ITS ---
<Statement entered by Breann Bhat MD - 07/26/24 12:35> I reviewed above note and agree with findings and plans. I have also personally examined the patient with medicine team and went over assessment and plan with medical team including internal grinder set up operator and resident physician. Documentation for date of: 07/21/24 Subjective Subjective Interval history: No acute overnight events. Patient seen and examined at bedside resting comfortably in bed. Still pending authorization for SNF, likely will be tomorrow. BP slightly elevated at 160/83, consider starting home nifedipine if continues to be elevated. Otherwise, vital signs stable and no need for labs at this time. Exam Vital Signs Temp Pulse Resp BP Pulse Ox O2 Del Method 98.2 F 70 17 139/91 H 97 Room Air 07/21/24 07:22 07/21/24 08:06 07/21/24 07:22 07/21/24 08:06 07/21/24 07:22 07/21/24 04:00 Narrative Exam General: AOx3, no acute distress, able to speak full sentences but at times speaks tangentially HEENT: NC/AT, mucous membranes moist, bilateral sclera anicteric Cardiovascular: regular rate and rhythm, S1/S2 present, no murmurs appreciated Pulmonary: clear to auscultation bilaterally, no rales/rhonchi/wheezes Abdominal: soft, non-tender, non-distended, no rebound/guarding, normal bowel sounds present Musculoskeletal: normal ROM, no peripheral edema Skin: warm and dry, intact, no rashes Neuro: CN II-XII intact, no focal deficits Objective Labs 07/20/24 04:20 07/20/24 04:20 Quality Measures Quality Measures none Advance care planning discussed with:: patient Assessment & Plan Assessment Current Active Medications: Generic Name Dose Route Start Last Admin Trade Name Freq PRN Reason Stop Dose Admin Acetaminophen 650 mg 07/18/24 17:56 Acetaminophen Supp 650 Mg Supp [place] 08/17/24 17:55 Q6HR PRN PAIN OR FEVER > 100.4 Atorvastatin Calcium 20 mg 07/18/24 21:00 07/20/24 20:57 Atorvastatin Calcium 20 Mg Tablet PO 08/17/24 20:59 20 mg HS BRIDGET Administration Carvedilol 12.5 mg 07/18/24 19:40 07/21/24 08:05 Carvedilol 12.5 Mg Tablet PO 08/17/24 19:39 12.5 mg BIDWM BRIDGET Administration Dextrose 25 ml 07/18/24 18:00 07/18/24 23:30 Dextrose 50%-Water Inj 50 Ml Syringe IV 08/17/24 17:59 25 ml Q15MIN PRN Administration BG 50-70 responsive npo pt Dextrose 50 ml 07/18/24 18:00 Dextrose 50%-Water Inj 50 Ml Syringe IV 08/17/24 17:59 Q15MIN PRN BG <50 OR BG <70 & pt unresponsive Glucagon 1 mg 07/18/24 18:00 Glucagon Inj 1 Mg Vial IM Q15MIN PRN BG <70, and no IV access Insulin Human Lispro 0 unit 07/18/24 18:00 07/21/24 05:53 Insulin Lispro (Admelog) 1 Unit/0.01 Ml Unit SC 08/17/24 17:59 Not Given Q6HR BRIDGET Protocol Labetalol HCl 20 mg 07/18/24 20:05 Labetalol Inj 5 Mg/Ml Vial 20 Ml IVP 08/17/24 20:04 Q10M PRN Hypertension Lisinopril 40 mg 07/19/24 09:00 07/21/24 08:06 Lisinopril 20 Mg Tablet PO 08/18/24 08:59 40 mg QDAY BRIDGET Administration Nifedipine 30 mg 07/19/24 09:00 07/21/24 08:06 Nifedipine Xl 30 Mg Tabcr PO 08/18/24 08:59 Not Given QDAY BRIDGET Ondansetron HCl 4 mg 07/18/24 17:56 Ondansetron Inj 2 Mg/Ml Inj 2 Ml IVP 08/17/24 17:55 Q6H PRN NAUSEA OR VOMITING Protocol Pantoprazole Sodium 40 mg 07/20/24 09:00 07/21/24 08:05 Pantoprazole 40 Mg Tablet PO 08/19/24 08:59 40 mg QDAY BRIDGET Administration Paroxetine HCl 40 mg 07/19/24 09:00 07/21/24 08:05 Paroxetine Hcl 10 Mg Tablet PO 08/18/24 08:59 40 mg QAM BRIDGET Administration Trazodone HCl 50 mg 07/18/24 21:00 07/20/24 20:57 Trazodone Hcl 50 Mg Tablet PO 08/17/24 20:59 50 mg HS BRIDGET Administration Plan Mihai Monreal is a 78-year-old male with a past medical history of type 2 diabetes mellitus, hypertension, GERD, and depression was admitted on 07/18/2024 for hypertensive emergency, dysphagia, and acute encephalopathy. #New onset dysphagia, resolved Failed nurse swallow screen and witnessed at bedside while trying to drink water. Past formal speech evaluation and now eating without any difficulty. ? Continue with dysphagia 3 diet carb consistent ? Will continue to monitor #Acute encephalopathy, resolved Initially in the ED patient had complaints of altered mental status at home, but on initial assessment he was AO x 3. CT head showed no new infarcts compared to CT obtained earlier this month nor hemorrhage, mass effect, midline shift. Acute cephalopathy could have been in the setting of hypertensive emergency. ? Will continue to monitor for now #Hypertensive emergency, improving #History of hypertension SBP in 200s in ED, given hydralazine 10 mg IV x1 and nifedipine 30 mg x1. ? Carvedilol 12.5 mg p.o. twice daily ? Lisinopril 40 mg p.o. daily ? Nifedipine 30 mg p.o. daily #Normocytic normochromic anemia No active signs of bleeding ? Will continue to monitor ? Transfuse if hemoglobin less than 7 #Type 2 diabetes mellitus A1c 5.6% ? SSI, Accu-checks q6h ? Hypoglycemic protocol in place #GERD ? Pantoprazole #Depression ? Continue trazodone 50 at bedtime and paroxetine 40 mg p.o. daily Hospital management: Disposition: Pending SNF authorization Diet: dysphagia 3 GI prophylaxis: protonix DVT prophylaxis: SCDs Code: Full ----- Plan discussed with attending physician Dr. Perlita Laboy MD PGY-1 Internal Medicine
[2024-07-21] MEDS: ATORVASTATIN CALCIUM 20 MG TABLET PO (20:30)
[2024-07-21] MEDS: traZODone HCL 50 MG TABLET PO (20:30)
[2024-07-22] VITALS (7 sets, daily range): BP systolic 126–153; BP diastolic 56–85; PULSE 67–83; RESP 17–18; TEMP 36.1–36.6; O2SAT 94–97
[2024-07-22] MEDS: PANTOPRAZOLE 40 MG TABLET PO (08:10)
[2024-07-22] MEDS: PARoxetine HCL 10 MG TABLET 40 MG PO (08:10)
[2024-07-22] MEDS: NIFEdipine XL 30 MG TABCR PO (08:10)
[2024-07-22] MEDS: carVEDILOL 12.5 MG TABLET PO (08:11)
[2024-07-22] MEDS: Lisinopril 20 MG TABLET 40 MG PO (08:11)
--- NOTE | 2024-07-22 09:36 | PC.SS ---
SS reached out to Mandy with [facility] [phone] who stated hospital is supposed to submit for auth. S reached out to Arnel, spoke to Karoline who stated she is unsure who is covering pt today but she took pt information and will send to appropriate person to follow up with DEAN. Karoline instructed to call back if no no one reaches out by [phone].
--- NOTE | 2024-07-22 11:26 | PC.SS ---
SS met with pt and kyle Meléndez at bedside to update on placement. SS informed them we are currently pending insurance auth for [facility]. Rika stated she will be in a meeting today but she is ok with pt DC to [facility] any time today and she will be available later this evening.
--- NOTE | 2024-07-22 11:54 | PC.SS ---
Addendum entered by Teresa Stevenson 07/22/24 14:31: SS called Rika [phone] to update on ETA of 1600 Addendum entered by Teresa Stevenson 07/22/24 14:29: SS received a call fro [place] ETA set for 1600, RN made aware and [facility] Addendum entered by Teresa Stevenson 07/22/24 12:51: SS spoke to Mandy at [facility], auth has been obtained. Transport initiated reservation #[id number] Original Note: SS followed up with [facility] in regards to auth, SS requested to speak to [employer] Project Manager, no answer. Brief VM left with call back info.
--- NOTE | 2024-07-22 14:56 | PD.RESPRO ---
Documentation for date of: 07/22/24 Exam Vital Signs Temp Pulse Resp BP Pulse Ox O2 Del Method 97.2 F 71 18 140/64 H 95 Room Air 07/22/24 12:00 07/22/24 12:00 07/22/24 12:00 07/22/24 12:00 07/22/24 12:00 07/22/24 12:00 Objective Labs 07/20/24 04:20 07/20/24 04:20 Quality Measures Quality Measures none Assessment & Plan Assessment Current Active Medications: Generic Name Dose Route Start Last Admin Trade Name Freq PRN Reason Stop Dose Admin Acetaminophen 650 mg 07/18/24 17:56 Acetaminophen Supp 650 Mg Supp [place] 08/17/24 17:55 Q6HR PRN PAIN OR FEVER > 100.4 Atorvastatin Calcium 20 mg 07/18/24 21:00 07/21/24 20:30 Atorvastatin Calcium 20 Mg Tablet PO 08/17/24 20:59 20 mg HS BRIDGET Administration Carvedilol 12.5 mg 07/18/24 19:40 07/22/24 08:11 Carvedilol 12.5 Mg Tablet PO 08/17/24 19:39 12.5 mg BIDWM BRIDGET Administration Dextrose 25 ml 07/18/24 18:00 07/18/24 23:30 Dextrose 50%-Water Inj 50 Ml Syringe IV 08/17/24 17:59 25 ml Q15MIN PRN Administration BG 50-70 responsive npo pt Dextrose 50 ml 07/18/24 18:00 Dextrose 50%-Water Inj 50 Ml Syringe IV 08/17/24 17:59 Q15MIN PRN BG <50 OR BG <70 & pt unresponsive Glucagon 1 mg 07/18/24 18:00 Glucagon Inj 1 Mg Vial IM Q15MIN PRN BG <70, and no IV access Insulin Human Lispro 0 unit 07/18/24 18:00 07/22/24 11:20 Insulin Lispro (Admelog) 1 Unit/0.01 Ml Unit SC 08/17/24 17:59 Not Given Q6HR BRIDGET Protocol Labetalol HCl 20 mg 07/18/24 20:05 Labetalol Inj 5 Mg/Ml Vial 20 Ml IVP 08/17/24 20:04 Q10M PRN Hypertension Lisinopril 40 mg 07/19/24 09:00 07/22/24 08:11 Lisinopril 20 Mg Tablet PO 08/18/24 08:59 40 mg QDAY BRIDGET Administration Nifedipine 30 mg 07/19/24 09:00 07/22/24 08:10 Nifedipine Xl 30 Mg Tabcr PO 08/18/24 08:59 30 mg QDAY BRIDGET Administration Ondansetron HCl 4 mg 07/18/24 17:56 Ondansetron Inj 2 Mg/Ml Inj 2 Ml IVP 08/17/24 17:55 Q6H PRN NAUSEA OR VOMITING Protocol Pantoprazole Sodium 40 mg 07/20/24 09:00 07/22/24 08:10 Pantoprazole 40 Mg Tablet PO 08/19/24 08:59 40 mg QDAY BRIDGET Administration Paroxetine HCl 40 mg 07/19/24 09:00 07/22/24 08:10 Paroxetine Hcl 10 Mg Tablet PO 08/18/24 08:59 40 mg QAM BRIDGET Administration Trazodone HCl 50 mg 07/18/24 21:00 07/21/24 20:30 Trazodone Hcl 50 Mg Tablet PO 08/17/24 20:59 50 mg HS BRIDGET Administration
--- NOTE | 2024-07-22 14:57 | ESDS_ITS ---
<Statement entered by Breann Bhat MD - 07/26/24 14:49> I reviewed above note and agree with findings and plans. I have also personally examined the patient with medicine team and went over assessment and plan with medical team including financial services intern and resident physician. Planned Discharge Date 07/22/24 DS: Providers Provider Date of admission: 07/22/24 14:06 Primary care physician: Perry Gomez MD Admitting Provider: Breann Bhat MD Attending Provider on Admission: Breann Bhat MD Consults: 07/18/24 17:59 Referral Speech Therapy Routine Comment: Please perform formal speech/swallow evaluation 07/19/24 10:35 Referral Physical Therapy Routine Comment: Physician Instructions: Attending Provider on DC: Santos Laboy MD Discharging Provider: Santos Laboy MD DS: Diagnosis Problem List Completed Was Problem List Reviewed/Reconciled?: Yes Hospital Course Hospital Course Hospital course: Mihai Monreal is a 78-year-old male with a past medical history of insulin- dependent type 2 diabetes mellitus, hypertension, GERD, and depression who presents on 07/18 after he was found to be encephalopathic by family member and brought to the ED. In the field, blood sugars noted to be in 70s and given D10 bolus after which mentation improved per report. Patient has a family member (her grandfather is patient's brother) at bedside who helped provide additional history as at bedside patient is alert and oriented x3 but cannot explain why he is in the hospital and at times does not make sense. She states that in the mo rning patient appeared lethargic and difficult to arouse and called EMS but prior to that he was in his usual state of health. However, upon arrival to the ED he was noted to be unable to pass his bedside nursing swallow screen that was also witnessed while at bedside while trying to drink water and is new for him. Otherwise, patient does not currently have any complaints but is difficult to obtain accurate information from him at this time. Of note, after he was discharged earlier this month, family member states that personnel or caretakers that live at patient's apartment complex had put patient on hospice and she suspects that they may be taking advantage of patient's health conditions. Thus, since 07/11, patient has been living with family member at bedside and has also since contacted [facility] in order to be a part of patient's medical decision making. In ED, blood pressure as high as 200s but saturating well on room air and afebrile. CBC largely unremarkable, chem panel largely unremarkable. UA showed 3+ blood, 435 RBC, 12 WBC, no bacteria. CXR shows some biapical pleural thickening and mildly enlarged cardiac countour. XR lumbar spine showed osteopenia. CT head showed no new changes, but did not old infarcts that were seen previously. EKG showed NSR at 87 bpm. After admission, mentation improved and he was able to pass his swallow evaluation. Thus, decision was made that it was not necessary to follow morning labs, vital signs remained stable and patient was accepted to SNF on day of discharge. Diagnoses during admission: #New onset dysphagia, resolved #Acute encephalopathy, resolved #Hypertensive emergency, improving #History of hypertension #Normocytic normochromic anemia #Type 2 diabetes mellitus #GERD #Depression Discharge instructions: ? Your ramipril was stopped, but make sure to follow-up with your PCP for medicine reconciliation ? Continue taking all other home medications as prescribed ? Follow-up with PCP within 1-2 weeks of discharge ? If you do not have a PCP, you can follow-up at the [facility] (you can call [phone] to make an appointment) ? If you wish to follow-up with Dr. Laboy, schedule appointment on Monday afternoons ? Return to ED if symptoms worsen or recur ----- Plan discussed with attending physician Dr. Perlita Laboy MD PGY-1 Internal Medicine Time Spent with Patient Time attestation: Total time spent providing and/or coordinating discharge services: Time spent: Greater than 30 minutes Exam Vital Signs Temp Pulse Resp BP Pulse Ox O2 Del Method 97.2 F 71 18 140/64 H 95 Room Air 07/22/24 12:07/22/24 12:07/22/24 12:00 07/22/24 12:07/22/24 12:07/22/24 12:00 Narrative Exam General: AOx3, no acute distress, able to speak full sentences but at times speaks tangentially HEENT: NC/AT, mucous membranes moist, bilateral sclera anicteric Cardiovascular: regular rate and rhythm, S1/S2 present, no murmurs appreciated Pulmonary: clear to auscultation bilaterally, no rales/rhonchi/wheezes Abdominal: soft, non-tender, non-distended, no rebound/guarding, normal bowel sounds present Musculoskeletal: normal ROM, no peripheral edema Skin: warm and dry, intact, no rashes Neuro: CN II-XII intact, no focal deficits Discharge Plan Plan Patient Disposition: Xfer Skilled Nsg Fac (SNF) Disposition Comment: [facility] Care Plan Goals: ? Your ramipril was stopped, but make sure to follow-up with your PCP for medicine reconciliation ? Continue taking all other home medications as prescribed ? Follow-up with PCP within 1-2 weeks of discharge ? If you do not have a PCP, you can follow-up at the [facility] (you can call [phone] to make an appointment) ? If you wish to follow-up with Dr. Laboy, schedule appointment on Monday afternoons ? Return to ED if symptoms worsen or recur Prescriptions/Referrals Prescriptions/Med Rec: Continued paroxetine HCl [Paxil] 40 MG tablet 40 mg PO QAM Qty: 0 metformin [Glucophage] 500 MG tablet 500 mg PO BIDAC Qty: 120 0RF omeprazole 20 mg Capsule,Delayed Release(Dr/Ec) 20 mg PO QDAY pioglitazone 30 mg Tablet 30 mg PO QDAY Januvia 100 mg Tablet 100 mg PO DAILY nifedipine 30 mg Tablet Extended Release 24hr 30 mg PO QDAY 30 Days Qty: 30 0RF carvedilol [Coreg] 12.5 mg tablet 12.5 mg PO BID 30 Days Qty: 60 0RF Rx Instructions: must administer with a meal/food losartan 100 mg tablet 100 mg PO QDAY 30 Days Qty: 30 0RF simvastatin 40 mg tablet 40 mg PO QDAY trazodone 50 mg tablet 50 mg PO HS Patient Comments: TAKE 1 TABLET BY MOUTH EVERYDAY AT BEDTIME Discontinued ramipril 10 mg capsule 10 mg PO QDAY Referrals: Perry Gomez MD [Primary Care Provider] - Patient/Caregiver Discharge Instructions Discharge Activity: activity as tolerated Education Materials: Dysphagia Aspiration, ED Confusion Print Language: Togolese Stand Alone Forms: Renetta Award Info., Patient Portal Info Letter Discharge Order Discharge Orders: Discharge (Routine); Ordered 07/22/24 Ordered By: Santos Laboy Quality Discharge Quality Measures VTE prophylaxis
--- NOTE | 2024-07-22 15:29 | PC.NURSE ---
report was given to Veronique colin [facility] where pt will be transferring to
== END 2024-07-22 17:00 | disposition skilled nursing facility (03) | DRG 71 ==
LOC: SERX 16:25 → SERHOLD 18:16 → S3NX 23:40
PROVIDERS: Admitting Provider Internal Medicine; Emergency Provider Student in an Organized Health Care Education/Training Program; PCP Family Medicine; Visit Provider Internal Medicine
DX: G93.40 Encephalopathy, unspecified (principal); I16.1 Hypertensive emergency; K21.9 Gastro-esophageal reflux disease without esophagitis; E11.649 Type 2 diabetes mellitus with hypoglycemia without coma; F32.A Depression, unspecified; I10 Essential (primary) hypertension; D64.9 Anemia, unspecified; I69.391 Dysphagia following cerebral infarction; M85.80 Other specified disorders of bone density and structure, unspecified site; Z51.5 Encounter for palliative care; Z79.4 Long term (current) use of insulin; Z79.84 Long term (current) use of oral hypoglycemic drugs; Z79.899 Other long term (current) drug therapy
CPT/HCPCS: 36415; 70450; 71045; 72020; 80053; 80061; 81001; 83036; 83735; 84100; 84443; 85025; 87081; 87811; 92610; 93005; 93225; 96361; 96365; 96366; 96375; 97162; 99285; G0378; J0360; J2470; J3475; J7120; A9270

== ENCOUNTER 2024-10-09 12:13 | Inpatient (IN) | payer MEDICARE, MEDICAID, SELFPAY ==
--- NOTE | 2024-10-09 12:29 | PD.EDFALL ---
ED Fall Injury RME/HPI General Chief Complaint: Fall Stated Complaint: FALL Time Seen by Provider: 10/09/24 12:22 Arrival date/time: 10/09/24 12:13 Limitations: no limitations RME / HPI RME / HPI Narrative: 78 year old male with history of hypertension, diabetes, GERD, and frequent falls presents to the ED BIBA from [facility] for evaluation of left leg pain following a ground level fall today. Patient states he was walking to the restroom when he slipped and fell, landing on his left side. Followed by pain to the left leg that was not improved with pain medication given at the facility. Pain is aggravated with movements and minimally improved with immobilization. Denies LOC or neck pain. Related Data Home Medications ?Medication ?Instructions ?Recorded ?Confirmed paroxetine HCl 40 mg tablet (Paxil) 40 mg PO QAM #0 tabs 07/02/13 07/18/24 omeprazole 20 mg capsule,delayed 20 mg PO QDAY 07/24/18 07/20/24 release pioglitazone 30 mg tablet 30 mg PO QDAY 07/24/18 07/20/24 sitagliptin phosphate 100 mg 100 mg PO DAILY 07/24/18 07/20/24 tablet (Januvia) simvastatin 40 mg tablet 40 mg PO QDAY 07/18/24 07/18/24 trazodone 50 mg tablet 50 mg PO HS 07/18/24 07/18/24 Previous Rx's ?Medication ?Instructions ?Recorded metformin 500 mg tablet 500 mg PO BIDAC #120 tabs 06/14/15 (Glucophage) Allergies Allergy/AdvReac Type Severity Reaction Status Date / Time No Known Allergies Allergy Verified 10/09/24 13:00 Review of Systems Review of Systems Systems Reviewed: All systems reviewed, normal except as documented Past Medical History Past Medical History CARDIAC: Positive Hypertension RESPIRATORY: Positive Asthma GASTROINTESTINAL: Positive Cirrhosis and Gastroesophageal Reflux Disease ENT: Positive Deafness ([place]) ENDOCRINE: Positive Diabetes Mellitus Type 2 PSYCHO/SOCIAL: Positive Depression Social History SMOKING STATUS: Never smoker SUBSTANCE USE: does not use ED Exam General Limitations: Present no limitations General appearance: Present alert and in no apparent distress Head Head exam: Present atraumatic Eye Eye exam: Present normal appearance, PERRL and EOMI ENT ENT exam: Present normal exam, normal oropharynx and mucous membranes moist Neck Neck exam: Present normal inspection, full ROM and trachea midline Chest Chest inspection: Present normal inspection and symmetric chest wall rise Respiratory Respiratory exam: Present normal lung sounds bilaterally Cardiovascular Cardiovascular exam: Present regular rate, normal rhythm and normal heart sounds Abdominal Exam Abdominal exam: Present soft and normal bowel sounds; Absent distention Extremities Exam Extremities exam: Present normal inspection and other (Tenderness palpation along the left hip, mild tenderness palpation at the left lower leg, 2+ DP pulse bilateral lower extremity symmetric intact, patient able to move bilateral lower extremities however range of motion limited secondary to pain at the left hip, sensation intact) Back Exam Back exam: Present normal inspection and full ROM Neurological Exam Neurological exam: Present alert, oriented X3 and CN II-XII intact Psychiatric Psychiatric exam: Present normal affect and normal mood Skin Skin exam: Present warm, dry, intact and normal color Course Quality Measures none Orders Category Date Time Status Consult to Orthopedic Stat Cons 10/09/24 16:[address] head/brain wo con Stat Exams 10/09/24 12:[address] hip LT wo con Stat Exams 10/09/24 14:26 Completed XR femur LT 2V Stat Exams 10/09/24 12:32 Completed XR hip LT w pelvis 2-3V Stat Exams 10/09/24 12:29 Completed XR tibia fibula LT 2V Stat Exams 10/09/24 12:29 Completed CBC Stat Lab 10/09/24 16:25 Completed CMP [Comprehensive Metabolic Panel] Stat Lab 10/09/24 14:58 Completed INR [Prothrombin Time with INR] Stat Lab 10/09/24 16:25 Completed Morphine Inj Med 10/09/24 14:11 Discontinued 2 mg IVP X1 ONE Vital Signs Vital signs: Vital Signs Temperature 98.2 F 10/09/24 12:33 Pulse Rate 67 10/09/24 12:33 Respiratory Rate 18 10/09/24 12:33 Blood Pressure 115/61 10/09/24 12:33 Pulse Oximetry (%) 98 10/09/24 12:33 Oxygen Delivery Method Room Air 10/09/24 12:33 Pulse ox is 98% on room air which is adequate. Fall MDM Narrative MDM Narrative:: Patient is a 78-year-old male with medical history notable for diabetes, frequent falls, send Emergency Department concerns for left lower extremity pain after having had a fall. Vital signs and exam as listed. Concern for fracture dislocation, soft tissue injury. Ordered x-rays of the left pelvis, left femur, as well as left tib-fib. X-ray of the pelvis with evidence of Acute impacted left subcapital hip fracture. Discussed case with orthopedic surgeon Dr. Campos, request CT scan of the hip. If patient has a hip fracture request that we admit to the hospitalist service and that he will take care of the patient once admitted. 4:34p CT scan of the pelvis with evidence of Acute left femoral neck fracture extending to the lesser trochanter, also prostatomegaly. Discussed case with hospitalist service, kindly accepted patient for admission. Patient data External records reviewed:: [facility] previous records (I reviewed admission from 07/18/2024 through 07/22/2024 ), EMS form and [facility] records (I reviewed pmhx and medications from [facility] ) Clinical information provided by:: patient Social determinants that could affect healthcare access:: housing ([place] resident ) Patient has the following chronic illnesses:: hypertension, diabetes, GERD, and frequent falls How is presenting disease/condition affected by chronic disease/condition?: exacerbated by Evaluation data The following diagnostics were reviewed and interpreted by me:: lab results and radiology exam(s) Lab and/or radiology exams considered but not ordered:: None Interpretation Summary: Ordering Physician: Veronique Coleman MD Date of Service: 10/09/24 Procedure(s): CT head/brain wo con Accession Number(s): [id number] cc: Perry Gomez MD; Rusty Jimenez MD; Veronique Coleman MD~ Examination: CT brain head without contrast. 2-D sagittal coronal reconstructions Date and time of exam: 10/09/2024 at 1333 hours, comparison July 18, 2024 INDICATIONS: Patient fell today with injury to the back of the head, head pain CTDI: vol (mGy):49.5 DLP: (mGycm):1045 Technique: Multiple CT axial sections of the brain have been obtained, 5 mm slice thickness. Contrast has not been administered. 2-D sagittal, coronal reconstructions have been obtained Low dose protocols were performed. One or more of the following dose reduction techniques were used; automated exposure control, adjustment of the mA and/or KV according to patient size, use of iterative reconstruction technique. Findings: No significant ventricular enlargement. Intra-axial or extra-axial hemorrhage density is not seen. No mass effect or midline shift Basal cisterns are not remarkable. Fourth ventricle is midline. Cranial vault intact. Impression: Negative for acute hemorrhage, mass effect or midline shift Dictated By: Rusty Jimenez MD Signed By: <Electronically signed by Rusty Jimenez MD in OV> 10/09/24 1401 Ordering Physician: Veronique Coleman MD Date of Service: 10/09/24 Procedure(s): XR hip LT w pelvis 2-3V Accession Number(s): [id number] cc: Perry Gomez MD; Rusty Jimenez MD; Veronique Coleman MD~ Examination:Left hip AP, lateral, AP pelvis 3 views Technique: Hip AP lateral, AP pelvis, 3 views Exam date and time:October 09, 2024 1306 hours INDICATIONS: Patient fell today with injury to the hip, hip pain. FINDINGS: Acute impacted left subcapital hip fracture Right hip bones of the pelvis intact IMPRESSION: Acute impacted left subcapital hip fracture. Dictated By: Rusty Jimenez MD Signed By: <Electronically signed by Rusty Jimenez MD in OV> 10/09/24 1348 Ordering Physician: Veronique Coleman MD Date of Service: 10/09/24 Procedure(s): XR tibia fibula LT 2V Accession Number(s): [id number] cc: Perry Gomez MD; Rusty Jimenez MD; Veronique Coleman MD~ Examination: Tibia-Fibula, left , 2 views Technique: Tibia-fibula AP lateral 2 views Date and time of exam: October 09, 2024 1306 hours INDICATIONS: Patient fell today with into the lower leg, lower leg pain. FINDINGS: Prominent osteopenia. No acute fracture IMPRESSION: No acute fracture Dictated By: Rusty Jimenez MD Signed By: <Electronically signed by Rusty Jimenez MD in OV> 10/09/241348 Ordering Physician: Veronique Coleman MD Date of Service: 10/09/24 Procedure(s): XR femur LT 2V Accession Number(s): [id number] cc: Perry Gomez MD; Rusty Jimenez MD; Veronique Coleman MD~ Examination: Left femur 2 views Technique one AP lateral left femur 2 views Date and time: October 09, 2024 1306 hours INDICATIONS: Patient fell today with injury to the leg, left leg pain FINDINGS: Acute impacted left subcapital hip fracture Shaft of the femur intact IMPRESSION: Acute impacted left subcapital hip fracture Dictated By: Rusty Jimenez MD Signed By: <Electronically signed by Rusty Jimenez MD in OV> 10/09/24 1349 Ordering Physician: Veronique Coleman MD Date of Service: 10/09/24 Procedure(s): CT hip LT wo con Accession Number(s): [id number] cc: Perry Gomez MD; Rusty Jimenez MD; Veronique Coleman MD~ Examination: CT pelvis, without contrast. CT left hip without intravenous contrast 2-D sagittal reconstructions. 2-D coronal reconstructions. 3-D reconstructions. Date and time of exam:October 09, 2024 1435 hours INDICATIONS: Patient fell today with injury of the hip, hip pain CTDI: vol (mGy):6.21 DLP: (mGycm):199 Technique: Multiple 1.25 mm axial sections of the pelvis left hip have been obtained. 2-D sagittal and coronal reconstructions have been obtained. 3-D reconstructions have been obtained. Low dose protocols were performed. One or more of the following dose reduction techniques were used; automated exposure control, adjustment of the mA and/or KV according to patient size, use of iterative reconstruction technique. Findings: Urinary bladder intact Significant prostatomegaly, 5.7 cm No pelvic hematoma Severe osteopenia Acute left femoral neck fracture extending to the lesser trochanter Bones of the pelvis intact IMPRESSION: Acute left femoral neck fracture extending to the lesser trochanter, consider MRI hip follow-up to exclude intertrochanteric extension of this fracture Dictated By: Rusty Jimenez MD Signed By: <Electronically signed by Rusty Jimenez MD in OV> 10/09/24 1455 Medications / Prescriptions Medications or Prescriptions considered but not ordered:: None Medication administrations:: Medication Administration History Discontinued Medications Morphine Sulfate (Morphine Sulf Inj 10 Mg/Ml Vial) 2 mg IVP X1 ONE Stop: 10/09/24 14:12 Last Admin: 10/09/24 14:28 Dose: 2 mg Documented By: GE See above Consultations Consultation(s) initiated? (list below): Yes Consultation #1 (Physician, Specialty, Details): I spoke with ortho Dr. Campos as noted above. Consultation #2 (Physician, Specialty, Details): I spoke with hospitalist team C regarding admission as noted above. Diagnosis Fall Differential Diagnosis: other (hip fracture, femur fracture) Most likely diagnosis given after review of the tests above:: Left intertrochanteric fracture Admission Indicated Admission indicated?: indicated Admission Request Was there a request for admission?: Yes Admission Attestation Admission request attestation: Discussed case with [] from Hospitalist service regarding admission. Discussed patients ED course, exam findings, labs, and radiology results. The Hospitalist [agrees,declines] to accept the patient for admission. Disposition Plan Disposition Plan: Admit Discharge Plan Plan Patient Disposition: Admit Acute Care w/in Hospital Prescriptions/Referrals Prescriptions/Med Rec: No Action paroxetine HCl [Paxil] 40 MG tablet 40 mg PO QAM Qty: 0 metformin [Glucophage] 500 MG tablet 500 mg PO BIDAC Qty: 120 0RF omeprazole 20 mg Capsule,Delayed Release(Dr/Ec) 20 mg PO QDAY pioglitazone 30 mg Tablet 30 mg PO QDAY Januvia 100 mg Tablet 100 mg PO DAILY simvastatin 40 mg tablet 40 mg PO QDAY trazodone 50 mg tablet 50 mg PO HS Patient Comments: TAKE 1 TABLET BY MOUTH EVERYDAY AT BEDTIME Referrals: Perry Gomez MD [Primary Care Provider] - In 1 week Problem List Clinical Impression: Intertrochanteric fracture of left hip Patient/Caregiver Discharge Instructions Print Language: Telugu Stand Alone Forms: [facility]etta Award Info., Patient Portal Info Letter
--- NOTE | 2024-10-09 12:32 | XR_ITS ---
Examination: Left femur 2 views Technique one AP lateral left femur 2 views Date and time: October 09, 2024 1306 hours INDICATIONS: Patient fell today with injury to the leg, left leg pain FINDINGS: Acute impacted left subcapital hip fracture Shaft of the femur intact IMPRESSION: Acute impacted left subcapital hip fracture
[2024-10-09 12:33] VITALS: BP 115/61; PULSE 67; RESP 18; TEMP 36.8; O2SAT 98
[2024-10-09 12:55] VITALS: PULSE 89; RESP 17; O2SAT 96; BMI 23.6
--- NOTE | 2024-10-09 14:26 | XR_ITS ---
Examination: CT pelvis, without contrast. CT left hip without intravenous contrast 2-D sagittal reconstructions. 2-D coronal reconstructions. 3-D reconstructions. Date and time of exam:October 09, 2024 1435 hours INDICATIONS: Patient fell today with injury of the hip, hip pain CTDI: vol (mGy):6.21 DLP: (mGycm):199 Technique: Multiple 1.25 mm axial sections of the pelvis left hip have been obtained. 2-D sagittal and coronal reconstructions have been obtained. 3-D reconstructions have been obtained. Low dose protocols were performed. One or more of the following dose reduction techniques were used; automated exposure control, adjustment of the mA and/or KV according to patient size, use of iterative reconstruction technique. Findings: Urinary bladder intact Significant prostatomegaly, 5.7 cm No pelvic hematoma Severe osteopenia Acute left femoral neck fracture extending to the lesser trochanter Bones of the pelvis intact IMPRESSION: Acute left femoral neck fracture extending to the lesser trochanter, consider MRI hip follow-up to exclude intertrochanteric extension of this fracture
[2024-10-09] MEDS: MORPHINE SULF INJ 10 MG/ML VIAL 2 MG IVP (14:28)
[2024-10-09 15:01] VITALS: BP 142/74; PULSE 92; RESP 16; TEMP 37.4; O2SAT 97
[2024-10-09 15:37] LABS: INR 1.2 (0.9-1.3); Prothrombin Time 12.9 Seconds (9.0-12.2)
[2024-10-09 15:43] LABS: Alanine Aminotransferase 52 U/L (10-49); Albumin, Serum 4.6 gm/dL (3.4-4.8); Albumin/Globulin Ratio 1.8 (1.2-2.2); Alkaline Phosphatase 117 U/L (46-116); Anion Gap 11 (7-16); Aspartate Amino Transferase 34 U/L (0-34); BUN/Creatinine Ratio 14 Ratio (12-20); Bilirubin,Total 1.0 mg/dL (0.3-1.2); Blood Urea Nitrogen 11 mg/dL (9-23); Calcium 10.1 mg/dL (8.3-10.6); Calcium (Corrected) 10.1 mg/dL (8.5-10.1); Carbon Dioxide 26.2 mMol/L (20.0-31.0); Chloride 104 mMol/L (98-107); Creatinine (Component) 0.8 mg/dL (0.6-1.3); Estimated Creatinine Clearance 72.4 mL/min (>60); Globulin 2.6 gm/dL (2.3-3.5); Glucose 119 mg/dL (74-106); Osmolality,Calculated 281 (275-295); Potassium 4.6 mMol/L (3.4-5.1); Sodium 141 mMol/L (136-145); Total Protein 7.2 gm/dL (5.7-8.2); eGFR > 60 See Note
[2024-10-09 16:54] LABS: Basophils # (Auto) 0.0 Thou/mm3 (0.0-0.2); Basophils % (Auto) 0 % (0-2.5); Eosinophils # (Auto) 0.0 Thou/mm3 (0.0-0.5); Eosinophils % (Auto) 0 % (0-10); Hematocrit 38.2 % (41.0-53.0); Hemoglobin 12.7 g/dL (13.5-16.0); Immature Granulocytes Auto 0.06 Thou/mm3 (0.00-0.00); Lymphocytes # (Auto) 0.7 Thou/mm3 (1.0-4.8); Lymphocytes % (Auto) 6 % (10-50); Mean Corpuscular HGB Conc 33.2 g/dl (31.0-37.0); Mean Corpuscular Hemoglobin 31.4 pg (25.0-35.0); Mean Corpuscular Volume 95 fL (80-100); Monocytes # (Auto) 0.7 Thou/mm3 (0.0-0.8); Monocytes % (Auto) 5 % (0-12); Neutrophils # (Auto) 11.3 Thou/mm3 (1.8-7.7); Neutrophils % (Auto) 88 % (37-80); Nucleated Red Blood Cell # 0.00 Thou/mm3 (0.00-0.00); Nucleated Red Blood Cell % 0 /100 WBC (0); Platelet Count 218 Thou/mm3 (140-440); RDW Standard Deviation 47.7 fL (35.1-43.9); Red Blood Count 4.04 Miln/mm3 (4.50-5.90); White Blood Count 12.8 Thou/mm3 (3.8-10.6)
[2024-10-09 17:00] VITALS: BP 142/74; BP 164/82; PULSE 105; PULSE 92; RESP 16; TEMP 37.4; O2SAT 96
--- NOTE | 2024-10-09 18:00 | PC.NURSE ---
pt came in due to ground level fall today. Patient states he was walking to the restroom when he slipped and fell, landing on his left side. Followed by pain to the left leg that was not improved with pain medication given at the facility. Pain increased with movements. Denies LOC or neck pain. + pulses and sensation to extremity of injury.
--- NOTE | 2024-10-09 18:01 | PC.NURSE ---
pt moved to rm 9. pt changed into gown and brief cleaned. pt moved in position of comfort. pt is going to admit for left hip fx. meal tray also provided. pt passed swallow eval
--- NOTE | 2024-10-09 18:17 | XR_ITS ---
Examination: Forearm, left, 2 views. Technique: Forearm, AP, lateral 2 views Date and time of exam: October 17, 2024, 1830 hours INDICATIONS: Patient fell today with injury to forearm, forearm pain. FINDINGS: Severe osteopenia. No acute fracture No dislocation IMPRESSION: No acute fracture
--- NOTE | 2024-10-09 18:17 | XR_ITS ---
Examination: Humerus 2 views left Technique: Humerus, AP lateral 2 views Date and time of exam: October 09, 2024, 1830 hours INDICATIONS: Patient fell today with injury to left arm, humerus pain. FINDINGS: No acute fracture. No shoulder dislocation. IMPRESSION: No acute fracture.
--- NOTE | 2024-10-09 18:22 | ESHP_ITS ---
<Statement entered by Heraclio Duarte MD - 10/09/24 19:18> I have reviewed the note and agree with the resident's assessment & plan with exceptions as below. I have personally reviewed labs, imaging, home meds/prior records, examined the patient, formulated and discussed management plan with the IM team. Mihai is a 78-year-old male who comes in for an evaluation after having a mechanical fall after trying to use the restroom. Patient is coming from a long term facility and has been evaluated in the past for recurrent falls. Per family, patient does have a walker, however refuses to use it and has had multiple falls in the past year. He was recently discharged to a long term facility as in June 2024, he was evaluated for a tailbone fall, however is unsure if the patient had a stroke at the time. Upon reviewing of records, there was no neurologic evaluation. The family does state that they had noticed some changes in his speech, some possible right-sided facial droop and also some weakness since June. They deny history of Alzheimer's or Parkinson's as well. While he was at the long term facility, he states he tried to use the restroom on his own and had a fall. He says that is tender to palpation of his right hip at this time and is requesting some pain medicine at this time. He denies taking any blood thinners at this time. CT hip shows acute left femoral neck fracture extending to the lesser trochanter. Patient was also complaining of left arm pain in which we ordered plain films of the humerus and forearm. Will continue with pain medicine at this time, n.p.o. at midnight in addition to coagulation panel. Orthopedic surgery, Dr. Campos, consulted, appreciate recommendations. Plan for surgical intervention tomorrow. Repeat hematology and chemistry in AM. Patient may need further evaluation if he had a previous stroke. Will further evaluate patient after surgical intervention. #Acute left femoral neck fracture Plan: ? Orthopedic surgery consulted, appreciate recommendations ? Multimodal pain management ? N.p.o. at midnight ? Coagulation panel in the morning # Non-insulin dependent diabetes mellitus On metformin at home A1c 5.6 (07/20/2024) Plan: ? Sliding scale insulin ? Hypoglycemic protocol in place ? Blood sugar checks with meals Heraclio Duarte, PGY-2 Internal Medicine Documentation for date of: 10/09/24 HPI History of Present Illness History of present illness: Mr. Monreal is a 78 year old male with PMH HTN, non-insulin dependent T2DM, anxiety/depression, and GERD, admitted for hip fracture following fall. Niece, Rika ([phone]), at bedside. Patient reports he is had slipped and fallen onto his left side and hit his head after going to the bathroom today. Per patient, he had possibly slipped on his urine. He notes both left upper extremity and left lower extremity pain currently. He denies any dizziness or syncope prior to the fall. Denies fever, chest pain, shortness of breath, or headache. Niece notes that he has fallen approximately 10 times since July while at [facility], which she attributes to patient going to the bathroom without notifying staff and not using his walker. She states he is able to remember the details of the falls. Patient was last hospitalized in 06/2024. Niece notes he has had facial droop since then, but states she was told stroke was ruled out at that time. ED course: Vitals: 115/61, 67 HR, 18 RR, SpO2 98 on RA, 98.2F Significant Labs: PT 12.9, INR 1.2, ALP 117, WBC 12.8, Hgb 12.7 Imaging: Acute impacted left subcapital hip fracture on hip/pelvic/femur XR. Negative head CT. Negative L tibia/fibula XR. Treatments: Orthopedic Surgery consulted () and planning for surgery tomorrow PMH: HTN, T2DM (non-insulin dependent), GERD, anxiety/depression PSH: None PFH: Diabetes in mother and father. Denies cancer history. Medications: losartan 100 mg QD, omeprazole 20 mg QD, Januvia 100 QD, nifedipine 10 mg QD, simvastatin 40 mg QD, Trazadone, metformin 500 mg BID, carvedilol 12.5, pioglitazone 30 QD, Paxil 10 QD, Tramadol 50 mg q8h PRN Allergies: NKDA Social Hx: - Tobacco use: denies - Alcohol: heavy drinker in the past. Quit 1979 - Drugs: Denies - Job: Retired. 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 Living alone prior to that. Pharmacy: [facility] on [address], [place] Review of Systems Review of Systems Narrative Review of Systems: All systems reviewed, normal except as documented Exam Vital Signs Temp Pulse Resp BP Pulse Ox O2 Del Method 99.3 F 92 16 142/74 H 96 Room Air 10/09/24 17:00 10/09/24 17:00 10/09/24 17:00 10/09/24 17:00 10/09/24 17:00 10/09/24 15:01 Narrative Exam GENERAL: A&OX3. No acute distress. Not diaphoretic. HEENT: Normocephalic, but facial asymmetry present. Moist mucous membranes. No scleral icterus. EOMI. CV: Regular rate and rhythm. S1 and S2 heard. No murmurs. PULM: No accessory muscle use. CTAB. No wheezing or crackles. ABDOMEN: Soft and non-distended. No tenderness to palpation of all quadrants. No rebound or guarding. EXTREMITIES: No lower extremity edema SKIN: Warm and dry. NEURO: Moving all extremities spontaneously. No aphasia. Facial asymmetry present. PSYCH: Cooperative with exam. Results: Labs 10/10/24 05:11 10/10/24 05:11 Labs: Short CBC 10/09/24 Range/Units 16:25 WBC 12.8 H (3.8-10.6) Thou/mm3 Hgb 12.7 L (13.5-16.0) g/dL Hct 38.2 L (41.0-53.0) % Plt Count 218 (140-440) Thou/mm3 BMP 10/09/24 14:58 Sodium 141 Potassium 4.6 Chloride 104 Carbon Dioxide 26.2 BUN 11 Creatinine 0.8 Glucose 119 H Calcium 10.1 Liver Function 10/09/24 Range/Units 14:58 Total Bilirubin 1.0 (0.3-1.2) mg/dL AST 34 (0-34) U/L ALT 52 H (10-49) U/L Alkaline Phosphatase 117 H (46-116) U/L Albumin 4.6 (3.4-4.8) gm/dL Quality Measures Quality Measures none Advance care planning discussed with:: patient Medications Home Medications and Allergies Home Medications ?Medication ?Instructions ?Recorded ?Confirmed ?Type paroxetine HCl 40 mg tablet (Paxil) 40 mg PO QAM #0 ta bs 07/02/13 10/09/24 History omeprazole 20 mg capsule,delayed 20 mg PO ACBR 9 10/10/24 History release pioglitazone 30 mg tablet 30 mg PO QDAY 07/24/1810/09 History sitagliptin phosphate 100 mg 100 mg PO DAILY 07/24/18 10/09/24 History tablet (Januvia) simvastatin 40 mg tablet 40 mg PO HS 07/18/24 5 History trazodone 50 mg tablet 50 mg PO HS 07/18/24 5 History carvedilol 12.5 mg tablet 12.5 mg PO QDAY 10/09/24 History losartan 100 mg tablet 100 mg PO QDAY 10/10/2409/21 History nifedipine 30 mg tablet,extended 30 mg PO QDAY 5 10/10/24 History release tramadol 50 mg tablet 50 mg PO Q8H PRN moderate pa in 10/10/24 10/10/24 History Allergies Allergy/AdvReac Type Severity Reaction Status Date / Time No Known Allergies Allergy Verified 10/09/24 13:00 Visit Medications Discontinued Medications Morphine Sulfate (Morphine Sulf Inj 10 Mg/Ml Vial) 2 mg IVP X1 ONE Stop: 10/09/24 14:12 Last Admin: 10/09/24 14:28 Dose: 2 mg Assessment & Plan Plan Assessment Mr. Monreal is a 78 year old male with PMH HTN, non-insulin dependent T2DM, anxiety/depression, and GERD, admitted for hip fracture following fall. Hip surgery planned for tomorrow with Dr. Campos. #L hip fracture status post ground-level fall #Left upper extremity pain #Recurrent falls Slipped and fell onto left side and head on 10/09/24 after going to the bathroom. Patient noting LUE and LLE pain. No obvious deformities noted on LUE. Per niece, patient has had 10 falls since July while at [facility], which niece attributes to not using his walker and going to the bathroom without notifying staff. Could be secondary to residual weakness from possible stroke, given niece notes facial droop since 06/2024. Plan: - Orthopedics consulted, appreciate recs. planning for hip surgery tomorrow. - NPO after midnight until after surgery - L forearm/humerus XR ordered, f/u - Pain management PRN #Non-insulin dependent Type 2 DM Last A1c 5.6% in 06/2024. On Januvia 100 mg po QD, metformin 500 mg po BID, and pioglitazone 30 mg po QD at home. Plan: - Hold home medications inpatient - Insulin sliding scale #Hypertension On nifedipine 10 mg po QD, losartan 100 mg po QD, and carvedilol 12.5 mg BID at home. Plan: - Hold on home medications for now #? Hyperlipidemia On simvastatin 40 mg po QD Plan: - atorvastatin 20 mg po QD while inpatient. Simvastatin not on formulary. #Anxiety #Depression Plan: - Resume home Paxil 10 mg po QD - Resume home Trazadone 50 mg po QHS #Health Maintenance Disposition: Med Surg DVT prophylaxis: SCDs GI prophylaxis: pantoprazole Diet: Regular. NPO after midnight until hip surgery CODE STATUS: DNR Case discussed with my attending Dr. Mckeon, and senior resident, Dr. Gerald Proctor, OMS4 Attending Provider Attestation/Addendum I have discussed and was present for the essential components of the history, physical examination, diagnosis, and treatment plan with the resident. I agree with the patient's care as documented by the resident and amended herein by me. Efrain Mckeon DO. Although this document has been carefully reviewed, there may still be some phonetic and other typographical errors. These errors are purely grammatical due to imperfections in the software program and should not be construed in any way to compromise the substance of the patient's medical care during this visit.
[2024-10-09] MEDS: MORPHINE SULF INJ 10 MG/ML VIAL IVP ×2 (20:02→22:26)
[2024-10-09] MEDS: ATORVASTATIN CALCIUM 20 MG TABLET PO (21:00)
[2024-10-09 22:00] VITALS: BP 138/74; PULSE 94; RESP 18; TEMP 36.1; O2SAT 91
[2024-10-10] VITALS (12 sets, daily range): BP systolic 140–174; BP diastolic 67–97; PULSE 81–109; RESP 12–19; TEMP 36.1–37.1; O2SAT 92–100
[2024-10-10] MEDS: MORPHINE SULF INJ 10 MG/ML VIAL IVP ×2 (06:14→08:32)
[2024-10-10 06:32] LABS: Basophils # (Auto) 0.0 Thou/mm3 (0.0-0.2); Basophils % (Auto) 0 % (0-2.5); Eosinophils # (Auto) 0.0 Thou/mm3 (0.0-0.5); Eosinophils % (Auto) 0 % (0-10); Hematocrit 35.9 % (41.0-53.0); Hemoglobin 12.1 g/dL (13.5-16.0); Immature Granulocytes Auto 0.03 Thou/mm3 (0.00-0.00); Lymphocytes # (Auto) 1.3 Thou/mm3 (1.0-4.8); Lymphocytes % (Auto) 15 % (10-50); Mean Corpuscular HGB Conc 33.7 g/dl (31.0-37.0); Mean Corpuscular Hemoglobin 31.8 pg (25.0-35.0); Mean Corpuscular Volume 94 fL (80-100); Monocytes # (Auto) 1.0 Thou/mm3 (0.0-0.8); Monocytes % (Auto) 12 % (0-12); Neutrophils # (Auto) 6.6 Thou/mm3 (1.8-7.7); Neutrophils % (Auto) 73 % (37-80); Nucleated Red Blood Cell # 0.00 Thou/mm3 (0.00-0.00); Nucleated Red Blood Cell % 0 /100 WBC (0); Platelet Count 198 Thou/mm3 (140-440); RDW Standard Deviation 46.5 fL (35.1-43.9); Red Blood Count 3.81 Miln/mm3 (4.50-5.90); White Blood Count 9.0 Thou/mm3 (3.8-10.6)
[2024-10-10 06:46] LABS: Alanine Aminotransferase 38 U/L (10-49); Albumin, Serum 4.1 gm/dL (3.4-4.8); Albumin/Globulin Ratio 1.8 (1.2-2.2); Alkaline Phosphatase 99 U/L (46-116); Anion Gap 9 (7-16); Aspartate Amino Transferase 21 U/L (0-34); BUN/Creatinine Ratio 14 Ratio (12-20); Bilirubin,Total 1.3 mg/dL (0.3-1.2); Blood Urea Nitrogen 13 mg/dL (9-23); Calcium 9.7 mg/dL (8.3-10.6); Calcium (Corrected) 9.7 mg/dL (8.5-10.1); Carbon Dioxide 26.5 mMol/L (20.0-31.0); Chloride 102 mMol/L (98-107); Creatine Kinase 90 U/L (34-171); Creatinine (Component) 0.9 mg/dL (0.6-1.3); Estimated Creatinine Clearance 64.4 mL/min (>60); Globulin 2.3 gm/dL (2.3-3.5); Glucose 113 mg/dL (74-106); Magnesium 1.3 mg/dL (1.6-2.6); Osmolality,Calculated 274 (275-295); Phosphorous 3.8 mg/dL (2.4-5.1); Potassium 4.3 mMol/L (3.4-5.1); Sodium 137 mMol/L (136-145); Thyroid Stimulating Hormone 2.47 uIU/mL (0.55-4.78); Total Protein 6.4 gm/dL (5.7-8.2); eGFR > 60 See Note
[2024-10-10 07:34] LABS: INR 1.1 (0.9-1.3); Partial Thromboplastin Time 27.7 Seconds (22.0-36.0); Prothrombin Time 12.3 Seconds (9.0-12.2)
[2024-10-10] MEDS: Magnesium Sulfate 4 GM Ivpb 4 GM/50 ML BAG IV (08:32)
--- NOTE | 2024-10-10 08:40 | PD.ORTHCON ---
HPI Consult details Reason for consultation narrative: Left hip pain History of present illness: Patient is a 78-year-old male who had a ground-level fall yesterday. He is post to use a wheelchair but frequently uses no assistive device. He is very hard of hearing and has a history of diabetes and a prior compression fracture. He also has a history of a stroke. He is not on any blood thinners. He denies any pain except for the left side of his lower extremity Review of Systems Review of Systems Narrative Review of Systems: Please see HPI. He does have a history of a stroke Meds Home Medications and Allergies Home Medications ?Medication ?Instructions ?Recorded ?Confirmed ?Type paroxetine HCl 40 mg tablet (Paxil) 40 mg PO QAM #0 tabs 07/02/13 10/09/24 History omeprazole 20 mg capsule,delayed 20 mg PO ACBR 07/24/18 10/10/24 History release pioglitazone 30 mg tablet 30 mg PO QDAY 07/24/18 10/09/24 History sitagliptin phosphate 100 mg 100 mg PO DAILY 07/24/18 10/09/24 History tablet (Januvia) simvastatin 40 mg tablet 40 mg PO HS 07/18/24 10/10/24 History trazodone 50 mg tablet 50 mg PO HS 07/18/24 10/09/24 History carvedilol 12.5 mg tablet 12.5 mg PO QDAY 10/09/24 10/09/24 History losartan 100 mg tablet 100 mg PO QDAY 10/10/24 10/10/24 History nifedipine 30 mg tablet,extended 30 mg PO QDAY 10/10/24 10/10/24 History release tramadol 50 mg tablet 50 mg PO Q8H PRN moderate pain 10/10/24 10/10/24 History Allergies Allergy/AdvReac Type Severity Reaction Status Date / Time No Known Allergies Allergy Verified 10/09/24 13:00 Exam Vital Signs Temp Pulse Resp BP Pulse Ox O2 Del Method 97.4 F 87 18 153/81 H 92 L Room Air 10/10/24 04:00 10/10/24 04:00 10/10/24 04:00 10/10/24 04:00 10/10/24 04:00 10/10/24 04:00 Additional findings Additional findings: Patient is in no acute distress and is cooperative with the examination today. Breathing is nonlabored. In no respiratory distress. Patient has no paraspinal tenderness. Bilateral extremities were evaluated and demonstrates sensation intact to light touch. Palpable pedal pulses are present. No significant edema is present. Bilateral knees were examined and the patient has full strength and range of motion.. The right hip was examined. Patient was able to flex to 90 degrees, adduct to 30 degrees, abduct to 40 degrees, internally rotate to 20 degrees, and externally rotate to 20 degrees. Patient has a negative logroll. Stinchfield is negative. The patient is nontender diffusely to touch. The left hip was examined. He has pain with logroll. He is able to flex and extend his ankle as well as his toes. Palpable DP pulse. Sensations intact to light touch Results - Ortho Labs 10/10/24 05:11 10/10/24 05:11 Labs: Short CBC 10/09/24 10/10/24 Range/Units 16:25 05:11 WBC 12.8 H 9.0 (3.8-10.6) Thou/mm3 Hgb 12.7 L 12.1 L (13.5-16.0) g/dL Hct 38.2 L 35.9 L (41.0-53.0) % Plt Count 218 198 (140-440) Thou/mm3 BMP 10/09/24 10/10/24 14:58 05:11 Sodium 141 137 Potassium 4.6 4.3 Chloride 104 102 Carbon Dioxide 26.2 26.5 BUN 11 13 Creatinine 0.8 0.9 Glucose 119 H 113 H Calcium 10.1 9.7 Cardiac Enzymes 10/10/24 Range/Units 05:11 Total Creatine Kinase 90 (34-171) U/L Liver Function 10/09/24 10/10/24 Range/Units 14:58 05:11 Total Bilirubin 1.0 1.3 H (0.3-1.2) mg/dL AST 34 21 (0-34) U/L ALT 52 H 38 (10-49) U/L Alkaline Phosphatase 117 H 99 (46-116) U/L Albumin 4.6 4.1 D (3.4-4.8) gm/dL Assessment & Plan Problem List (1) Femoral neck fracture: Status: Acute Assessment and plan: Patient is a 78-year-old male with a rather vertical pattern of the femoral neck fracture. He has a subcapital fracture that extends to the top of the lesser trochanter. Given that this is intracapsular and displaced, we recommend a hip hemiarthroplasty. We will have different options on backup. I discussed with the patient that there are 2 options of bedrest versus hemiarthroplasty given that the fracture is displaced. We discussed that the reason for surgery would be for pain relief and improved function as he would likely be immobile for quite a while without surgery. The patient understands the risk of surgery would like to proceed. We discussed that for him in particular, the risks include infection, dislocation, and periprosthetic fracture as he has had a lot of falls in the past likely due to his stroke and according to his sister that he is very stubborn. We discussed that this also puts him at risk for dislocation as well. The patient understands the risks and would like to proceed with surgery. We will have a Bai type stent on backup if the fracture extends further than we thought. On the CT scan it is above the lesser trochanter - N.p.o. - Plan for hip hemiarthroplasty today
--- NOTE | 2024-10-10 11:34 | PC.SS ---
Patient is a resident of [facility]. Patient was admitted for hip fracture. SS spoke to patient's niece, Rika. [facility] patient is a resident since July at [facility]. [facility] patient will be returning to facility upon discharge. Patient is pending surgery today. Prior to [facility] , patient was residing at [facility]. Alt medical decision maker: Rika Frye, D/c plan: return to facility Alt medical decision maker: kyle Meléndez,
[2024-10-10] MEDS: SODIUM CHLORIDE 0.9% 1000 ML 1,000 ML 50 ML IV (11:37)
--- NOTE | 2024-10-10 13:17 | ESPR_ITS ---
<Statement entered by Heraclio Duarte MD - 10/10/24 15:55> I have reviewed the note and agree with the resident's assessment & plan with exceptions as below. I have personally reviewed labs, imaging, home meds/prior records, examined the patient, formulated and discussed management plan with the IM team. Patient examined at bedside today. No acute overnight events. Patient to get orthopedic surgery by Dr. Campos for hip fracture. Will continue to follow patient, follow-up patient after surgery and continue with multimodal pain management. Repeat hematology and chemistry in the a.m. Heraclio Duarte, PGY-2 Internal Medicine Documentation for date of: 10/10/24 Subjective Subjective Interval history: No acute events overnight. Patient was examined at bedside. Vital signs and labs reviewed. Patient notes ongoing left lower extremity pain at the hip and down his thigh when moving his leg. Also noting some tenderness of RUQ. Denies left upper extremity pain today. Denies fever, chills, chest pain, or shortness of breath. Patient expresses awareness of hip surgery with Dr. Campos today. Denies any other questions or concerns at this time. Exam Vital Signs Temp Pulse Resp BP Pulse Ox O2 Del Method 97.0 F 96 17 162/78 H 95 Room Air 10/10/24 08:00 10/10/24 08:00 10/10/24 08:00 10/10/24 08:00 10/10/24 08:00 10/10/24 08:00 Narrative Exam GENERAL: A&OX3. No acute distress. Not diaphoretic. HEENT: Normocephalic and atraumatic, but facial asymmetry present. Moist mucous membranes. No scleral icterus. EOMI. CV: Regular rate and rhythm. S1 and S2 heard. No murmurs. PULM: No accessory muscle use. CTAB. No wheezing or crackles. ABDOMEN: Soft and non-distended. Mild RUQ tenderness to palpation. No rebound or guarding. EXTREMITIES: No lower extremity edema. SKIN: Warm and dry. NEURO: Moving all extremities spontaneously. No aphasia. Facial asymmetry present. PSYCH: Cooperative with exam. Objective Labs 10/10/24 05:11 10/10/24 05:11 Labs: Laboratory Results - last 24 hr 10/09/24 10/09/24 10/10/24 14:58 16:25 05:11 WBC 12.8 H 9.0 RBC 4.04 L 3.81 L Hgb 12.7 L 12.1 L Hct 38.2 L 35.9 L MCV 95 94 MCH 31.4 31.8 MCHC 33.2 33.7 RDW Std Deviation 47.7 H 46.5 H Plt Count 218 198 Neut % (Auto) 88 H 73 Lymph % (Auto) 6 L 15 [place] % (Auto) 5 12 Eos % (Auto) 0 0 Baso % (Auto) 0 0 Neut # (Auto) 11.3 H 6.6 Lymph # (Auto) 0.7 L 1.3 [place] # (Auto) 0.7 1.0 H Eos # (Auto) 0.0 0.0 Baso # (Auto) 0.0 0.0 Immature Gran # (Auto) 0.06 H 0.03 H Absolute Nucleated RBC 0.00 0.00 Immature Gran % 1 H 0 Nucleated RBC % 0 0 PT 12.9 H 12.3 H INR 1.2 1.1 APTT 27.7 Sodium 141 137 Potassium 4.6 4.3 Chloride 104 102 Carbon Dioxide 26.2 26.5 Anion Gap 11 9 BUN 11 13 Creatinine 0.8 0.9 Estim Creat Clear Calc 72.4 64.4 eGFR > 60 > 60 BUN/Creatinine Ratio 14 14 Glucose 119 H 113 H Calculated Osmolality 281 274 L Calcium 10.1 9.7 Corrected Calcium 10.1 9.7 Phosphorus 3.8 Magnesium 1.3 L Total Bilirubin 1.0 1.3 H AST 34 21 ALT 52 H 38 Alkaline Phosphatase 117 H 99 Total Creatine Kinase 90 Total Protein 7.2 6.4 Albumin 4.6 4.1 D Globulin 2.6 2.3 Albumin/Globulin Ratio 1.8 1.8 TSH 2.47 Quality Measures Quality Measures none Advance care planning discussed with:: patient Assessment & Plan Assessment Current Active Medications: Generic Name Dose Route Start Last Admin Trade Name Freq PRN Reason Stop Dose Admin Acetaminophen 650 mg 10/09/24 17:38 Acetaminophen 325 Mg Tablet PO 11/08/24 17:37 Q6H PRN PAIN SCALE 1-3 (mild Hydrocodone Bitart/Acetaminophen 1 tab 10/09/24 17:38 Hydrocodone/Apap 5/325 Tablet PO 10/14/24 17:37 Q4HR PRN PAIN SCALE 4-6 (Moderate Atorvastatin Calcium 20 mg 10/09/24 21:00 10/09/24 21:00 Atorvastatin Calcium 20 Mg Tablet PO 11/08/24 20:59 20 mg HS BRIDGET Administration Dextrose 25 ml 10/09/24 18:17 Dextrose 50%-Water Inj 50 Ml Syringe IV 11/08/24 18:16 Q15MIN PRN BG 50-70 responsive npo pt Dextrose 50 ml 10/09/24 18:17 Dextrose 50%-Water Inj 50 Ml Syringe IV 11/08/24 18:16 Q15MIN PRN BG <50 OR BG <70 & pt unresponsive Glucagon 1 mg 10/09/24 18:17 Glucagon Inj 1 Mg Vial IM Q15MIN PRN BG <70, and no IV access Sodium Chloride 1,000 mls @ 50 mls/hr 10/10/24 10:54 10/10/24 11:37 Ns IV 10/11/24 06:53 50 mls/hr .Q20H BRIDGET Administration Insulin Human Lispro 0 unit 10/10/24 07:30 10/10/24 12:18 Insulin Lispro (Admelog) 1 Unit/0.01 Ml Unit SC 11/09/24 07:29 Not Given AC BRIDGET Protocol Morphine Sulfate 1 mg 10/09/24 17:38 10/10/24 08:32 Morphine Sulf Inj 10 Mg/Ml Vial IVP 10/14/24 17:37 1 mg Q2H PRN Administration PAIN SCALE 7-10 (Severe Ondansetron HCl 4 mg 10/09/24 17:59 Ondansetron Inj 2 Mg/Ml Inj 2 Ml IVP 11/08/24 17:58 Q6H PRN NAUSEA OR VOMITING Protocol Pantoprazole Sodium 40 mg 10/10/24 09:00 10/10/24 08:32 Pantoprazole Inj 40 Mg Vial IVP 11/09/24 08:59 40 mg QDAY BRIDGET Administration Paroxetine HCl 10 mg 10/10/24 09:00 10/10/24 09:07 Paroxetine Hcl 10 Mg Tablet PO 11/09/24 08:59 Not Given QDAY BRIDGET Sennosides 1 tab 10/09/24 17:59 Senna Tablet PO 11/08/24 17:58 QDAY PRN constipation Protocol Trazodone HCl 50 mg 10/09/24 21:00 10/09/24 21:01 Trazodone Hcl 50 Mg Tablet PO 11/08/24 20:59 50 mg HS BRIDGET Administration Plan Assessment Mr. Monreal is a 78 year old male with PMH HTN, non-insulin dependent T2DM, anxiety/depression, and GERD, admitted for hip fracture following ground-level fall. Hip hemiarthroplasty planned for today with Dr. Campos. #L hip fracture #Recurrent falls Slipped and fell onto left side and head on 10/09/24 after going to the bathroom. Patient noting LUE and LLE pain. No obvious deformities noted on LUE. Per niece, patient has had 10 falls since July while at [facility], which niece attributes to not using his walker and going to the bathroom without notifying staff. Could be secondary to residual weakness from possible stroke, given niece notes facial droop since 06/2024. Plan: - Orthopedics consulted, appreciate recs. planning for hip hemiarthroplasty today. - NPO until after surgery - Pain management PRN #Non-insulin dependent Type 2 DM Last A1c 5.6% in 06/2024. On Januvia 100 mg po QD, metformin 500 mg po BID, and pioglitazone 30 mg po QD at home. Plan: - Hold home medications inpatient - Insulin sliding scale #Hypertension On nifedipine 10 mg po QD, losartan 100 mg po QD, and carvedilol 12.5 mg BID at home. Plan: - Hold on home medications for now #? Hyperlipidemia On simvastatin 40 mg po QD Plan: - atorvastatin 20 mg po QD while inpatient. Simvastatin not on formulary. #Anxiety #Depression Plan: - Resume home Paxil 10 mg po QD - Resume home Trazadone 50 mg po QHS #Left upper extremity pain - resolved Health Maintenance Disposition: Med Surg DVT prophylaxis: SCDs GI prophylaxis: pantoprazole Diet: NPO until hip surgery CODE STATUS: DNR Case discussed with my attending Dr. Mckeon, and senior resident, Dr. Gerald Proctor, OMS4 Attending Provider Attestation/Addendum I have discussed and was present for the essential components of the history, physical examination, diagnosis, and treatment plan with the resident. I agree with the patient's care as documented by the resident and amended herein by me. Efrain Mckeon DO. Although this document has been carefully reviewed, there may still be some phonetic and other typographical errors. These errors are purely grammatical due to imperfections in the software program and should not be construed in any way to compromise the substance of the patient's medical care during this visit.
--- NOTE | 2024-10-10 15:00 | XR_ITS ---
Examination: Left hip AP single view TECHNIQUE: AP left hip single view Date and time: October 10, 2024 1604 hours INDICATIONS: Status post left hip hemiarthroplasty FINDINGS: Left hip hemiarthroplasty. Satisfactory alignment IMPRESSION: Left hip hemiarthroplasty with satisfactory alignment
--- NOTE | 2024-10-10 16:22 | PD.SUROPNT ---
Date of Procedure 10/10/24 Pre Op Diagnosis left hip femoral neck fracture Post Op Diagnosis left hip femoral neck fracture Procedure left hip hemiarthroplasty Findings femoral neck fracture. Fracture stopped prior to lesser on inspection Procedure Description Indications: The patient is a 78y.o. year-old with a left femoral neck fracture after ground-level fall. After considering the patient's condition and the impact of their hip injury on the patient's quality of life and risks of nonoperative treatment, total hip replacement was offered as a reasonable option. Prior to the surgery I discussed the nature of the hip replacement surgery including alternatives to surgery and the purpose of, and indications for proceeding with surgery. I discussed that this surgery is a shared decision between the patient and the surgeon. Risks and benefits and alternatives of the procedure have been explained to the patient and their family. Anesthesia complications and risks include but are not limited to stroke, heart attack, and . The surgical risks include but are not limited to infection, instability/dislocation, bleeding, nerve and blood vessel injury, deep vein thrombosis, pulmonary embolus, stiffness, pain, scar, need for reoperation, leg length discrepancy, thigh numbness, weakness, and mechanical failure of the implant including loosening, metal complications, metal allergy, wear or breakage. I discussed the expected recovery from surgery and the importance of compliance with all our pre and post-operative recommendations in order to maximize the recovery. The patient/family understands the risks of loss of life, loss of limb and, loss of function and wishes to proceed. They understand they are at increased risk for infection given their history of smoking. A signed and witnessed consent was obtained and placed in the chart. Patient Positioning: The patient was placed in the lateral decubitus position on a standard table using a pegboard. An axillary role was placed. All extremities were padded to ensure adequate protection. A michael catheter was aseptically inserted. Time Out: A timeout was performed prior to the procedure which verified the correct patient, positioning, operation to be performed, operative site, antibiotics, allergies, imaging, and any other concerns. All parties were in agreement. Procedure in detail: The operative site was cleaned and draped in the usual sterile fashion. A final timeout was performed with all parties in agreement. A modified anterolateral approach to the hip was utilized. A 16cm skin incision was made centered over the greater trochanter in line with the femur. This was taken down through skin and subcutaneous tissue using a 10 blade. Bleeding was controlled using electrocautery. The fascia was identified and split in line with the femur. The charnley retractor was then placed. The abductor insertion was identified and a split made in the anterior 1/3 of the tendon proximally. Retractors were placed and the gluteus minimus was visualized. A capsulotomy was made down to the femoral neck anterior to the minimus. A split was then made in the anterior 1/3 of the vastus lateralis. A retractor was then placed anterior to the femoral shaft, the tendon was tagged with #1 ethibond sutures and a U-shaped split was made in the anterior 1/3 of the abductor tendon being careful to leave enough tendon to re-attach. The hip was then gently externally rotated as the anterior tissues were taken down with the tendon and capsule as one sleeve. A femoral neck fracture was visualized. The hip was gently dislocated. Retractors were placed around the femoral neck and the femoral neck osteotomy was then made to freshen up the cut. The femoral head was then removed. We then turned our attention to the femur. The leg was brought into external rotation and the femur was exposed. A canal finder was used followed by a box osteotomy and the femur was broached sequentially. The trial stem was then left in and the hip was trialed using various neck offsets and head sizes until the appropriate size was found based on leg length, stability. Once we were satisfied with the construct a cross-table AP pelvis radiograph was obtained to confirm appropriate positioning and sizing. The hip was then dislocated and the trials were then removed and the final stem impacted into placed. The hip was then again trialed and the appropriate head size identified. The beltran taper was then cleaned and dried and the final head impact into place and tested. The acetabulum was irrigated and confirmed to be free of debris. The hip was then reduced and taken through range of motion. The hip was stable in abduction and external rotation, adduction and external rotation, flexion past 90 degrees and internal rotation past 20 degrees. It did not sublux throughout range of motion and no impingement was detected. Leg lengths were appropriately restored based on preoperative leg lengths and intraoperative testing. . The hip was then copiously irrigated with dilute betadine followed by normal saline. The hip was then injected with the cocktail per protocol The hip was the closed in layers. The abductor tendon was closed with #1 ethibond. The fascia was closed with 0 Vicryl followed by an 0 V-lock. . The deep layer was closed with 0-Vicryl and the subcutaneous layer by a 2-0 Vicryl. The subdermal layer was closed with a 3-0 monocryl. The skin was then cleaned and dried and steri-strips placed followed by a sterile dressing. The drapes were then taken down and the patient was placed supine. Leg lengths were confirmed to be appropriate and the patient's lower extremities were warm and well perfused with brisk capillary refill and palpable pulses. The patient was then awoken, transferred to the [facility] and taken to the PACU in stable condition. They tolerated the procedure well. The patient's family/caregiviers were made aware of their condition. Postoperative plan Activity: WBAT, no hip precautions , no active hip abduction DVT Prophylaxis: aspirin 81mg BID Antibiotics: Standard postoperative antibiotics x 24 hours Implants: [place] 51 bipolar head -3, 7 standard actis Anesthesia GETA Implants josselyn Pathology / specimen None Pathology comment: none Estimated Blood Loss 150 Condition Stable Disposition floor Surgeon Ronnie Campos MD Surgical Staff Operation Date: 10/10/24 15:15 Case Staff Anesthesiologist: Ky Ramos RN First Assistant: Liberty Iglesias
--- NOTE | 2024-10-10 16:41 | XR_ITS ---
Examination: AP pelvis AP left hip 2 views TECHNIQUE: AP portable supine pelvis, AP supine portable left hip single view total 2 views Date and time: October 10, 2024, 1704 hours. INDICATIONS: Postop left hip replacement. FINDINGS: Total left hip hemiarthroplasty. Satisfactory alignment Moderate narrowing right hip joint IMPRESSION: Left hip hemiarthroplasty with satisfactory alignment.
--- NOTE | 2024-10-10 16:52 | SUR.PHASEI ---
received pt and report from Dr. Leach and RN Ambar. Pt's operative leg (left) in a flex position.vss, dressing to left hip CDI. pt awake, [place], not responding at this time. Pt moving right lower ext and ashley upper ext.
--- NOTE | 2024-10-10 17:03 | SUR.PHASEI ---
technology lab teacher at bedside.
--- NOTE | 2024-10-10 17:04 | SUR.PHASEI ---
pt relaxed and unflexed the operative leg without assist.
[2024-10-10] MEDS: MORPHINE SULF INJ 10 MG/ML VIAL 3 MG IVP (17:18)
--- NOTE | 2024-10-10 17:18 | SUR.PHASEI ---
pt awake, pt states he has pain 5/10 to left hip. administered pain meds as ordered.
--- NOTE | 2024-10-10 17:30 | SUR.PHASEI ---
pt resting with eyes closed, no distress noted. vss, dressing remains cdi. IV intact, no s/s of infiltration and redness noted to site. report given to JODIE Ugalde. appled O2 via n/c for support.
--- NOTE | 2024-10-10 17:52 | PC.NURSE ---
pt up to room from surgery, stable vitals, dressing to left hip CDI
--- NOTE | 2024-10-10 20:25 | PC.NURSE ---
at bedside, conversing c pt. conversed c pt for about 20 minutes. Pt agreed to cooperate and refrain from making attempts to get oob. Will continue to monitor
--- NOTE | 2024-10-10 21:38 | PC.NURSE ---
contacted d/t pt becoming restless and attempting to get oob, not following commands. Multiple attempts were made to reorient patient as he pulled on his IV line and/or swung his legs over the siderails. SEWER LINE PHOTO INSPECTOR MJ to remain with pt until futher orders are obtained, for pt's safety.
--- NOTE | 2024-10-10 21:41 | PC.NURSE ---
notified of Benadryl not working and pt's irritability persisting. Continues to make an effort to get oob and pull on his IV line. noted he would be up shortly to assess the patient himself. JOSE HILTON remains with pt for the time being.
[2024-10-10] MEDS: ATORVASTATIN CALCIUM 20 MG TABLET PO (22:38)
[2024-10-10] MEDS: HYDROcodone/APAP 5/325 TABLET 1 TAB PO (22:38)
[2024-10-11] VITALS (9 sets, daily range): BP systolic 114–143; BP diastolic 60–83; PULSE 72–101; RESP 16–95; TEMP 36–36.7; O2SAT 90–97; BMI 12.0
[2024-10-11 06:13] LABS: Basophils # (Auto) 0.0 Thou/mm3 (0.0-0.2); Basophils % (Auto) 0 % (0-2.5); Eosinophils # (Auto) 0.0 Thou/mm3 (0.0-0.5); Eosinophils % (Auto) 0 % (0-10); Hematocrit 30.0 % (41.0-53.0); Hemoglobin 10.0 g/dL (13.5-16.0); Immature Granulocytes Auto 0.02 Thou/mm3 (0.00-0.00); Lymphocytes # (Auto) 0.9 Thou/mm3 (1.0-4.8); Lymphocytes % (Auto) 9 % (10-50); Mean Corpuscular HGB Conc 33.3 g/dl (31.0-37.0); Mean Corpuscular Hemoglobin 31.6 pg (25.0-35.0); Mean Corpuscular Volume 95 fL (80-100); Monocytes # (Auto) 1.1 Thou/mm3 (0.0-0.8); Monocytes % (Auto) 11 % (0-12); Neutrophils # (Auto) 7.9 Thou/mm3 (1.8-7.7); Neutrophils % (Auto) 80 % (37-80); Nucleated Red Blood Cell # 0.00 Thou/mm3 (0.00-0.00); Nucleated Red Blood Cell % 0 /100 WBC (0); Platelet Count 173 Thou/mm3 (140-440); RDW Standard Deviation 45.9 fL (35.1-43.9); Red Blood Count 3.16 Miln/mm3 (4.50-5.90); White Blood Count 9.9 Thou/mm3 (3.8-10.6)
[2024-10-11 06:39] LABS: Alanine Aminotransferase 29 U/L (10-49); Albumin, Serum 3.8 gm/dL (3.4-4.8); Albumin/Globulin Ratio 1.7 (1.2-2.2); Alkaline Phosphatase 83 U/L (46-116); Anion Gap 9 (7-16); Aspartate Amino Transferase 25 U/L (0-34); BUN/Creatinine Ratio 19 Ratio (12-20); Bilirubin,Total 1.0 mg/dL (0.3-1.2); Blood Urea Nitrogen 19 mg/dL (9-23); Calcium 8.9 mg/dL (8.3-10.6); Calcium (Corrected) 9.1 mg/dL (8.5-10.1); Carbon Dioxide 27.0 mMol/L (20.0-31.0); Chloride 103 mMol/L (98-107); Creatinine (Component) 1.0 mg/dL (0.6-1.3); Estimated Creatinine Clearance 58.0 mL/min (>60); Globulin 2.3 gm/dL (2.3-3.5); Glucose 162 mg/dL (74-106); Magnesium 2.2 mg/dL (1.6-2.6); Osmolality,Calculated 283 (275-295); Phosphorous 3.6 mg/dL (2.4-5.1); Potassium 4.6 mMol/L (3.4-5.1); Sodium 139 mMol/L (136-145); Total Protein 6.1 gm/dL (5.7-8.2); eGFR > 60 See Note
[2024-10-11] MEDS: HYDROcodone/APAP 5/325 TABLET 1 TAB PO ×3 (08:20→21:13)
[2024-10-11] MEDS: MORPHINE SULF INJ 10 MG/ML VIAL IVP ×2 (09:31→15:01)
[2024-10-11] MEDS: ceFAZolin/D5W 1 GM IVPB 1 GM/50 ML BAG IV ×3 (09:45→21:12)
[2024-10-11] MEDS: ASPIRIN EC 81 MG TABEC PO ×2 (09:45→21:13)
--- NOTE | 2024-10-11 11:08 | ESPR_ITS ---
<Statement entered by Heraclio Duarte MD - 10/11/24 17:03> I have reviewed the note and agree with the resident's assessment & plan with exceptions as below. I have personally reviewed labs, imaging, home meds/prior records, examined the patient, formulated and discussed management plan with the IM team. Patient examined at bedside today. No acute overnight events. Patient had left hip hemiarthroplasty performed by Dr. Campos, postoperative day 1. Will get PT evaluation, advance diet and continue with multimodal pain management. Patient did seem a bit more confused today, most likely post anesthetic delirium. Repeat hematology and chemistry in AM. Continue with Ancef 1 day of antibiotic and aspirin twice daily for anticoagulation. Anticipate discharge in the next 48 hours depending on PT evaluation. Heraclio Duarte, PGY-2 Internal Medicine Documentation for date of: 10/11/24 Subjective Subjective Interval history: No acute events overnight. Patient was examined at bedside. Vital signs and labs reviewed, and patient has been afebrile. Patient appearing somewhat confused today and insisting he has a second hip surgery scheduled for today. However, he was aware that he did have hip surgery yesterday. Also stating that he was supposed to have someone come to cut his nails for him. He notes ongoing left hip pain, as well as possible right rib or RUQ pain, but uncertain. Patient was able to eat this morning, however expressed concerns that he should not be eating heavy foods due to belief that he has an upcoming surgery today. Exam Vital Signs Temp Pulse Resp BP Pulse Ox O2 Del Method O2 Flow Rate 97.8 F 91 18 143/81 H 90 L Room Air 4 10/11/24 04:00 10/11/24 07:25 10/11/24 07:25 10/11/24 04:00 10/11/24 04:00 10/11/24 04:00 10/10/24 17:00 Narrative Exam GENERAL: Alert but appearing somewhat confused. No acute distress. Not diaphoretic. HEENT: Normocephalic and atraumatic, but facial asymmetry present. Moist mucous membranes. No scleral icterus. EOMI. CV: Regular rate and rhythm. S1 and S2 heard. No murmurs. PULM: No accessory muscle use. CTAB. No wheezing or crackles. ABDOMEN: Soft and non-distended. Possible RUQ or right rib tenderness to palpation, although difficult to assess if patient was referring to his RUQ or hip when answering about tenderness. No rebound or guarding. EXTREMITIES: No lower extremity edema. SKIN: Warm and dry. NEURO: Moving all extremities spontaneously. No aphasia. Facial asymmetry present. PSYCH: Cooperative with exam. Objective Labs 10/11/24 05:02 10/11/24 05:02 Labs: Laboratory Results - last 24 hr 10/11/24 05:02 WBC 9.9 RBC 3.16 L Hgb 10.0 L D Hct 30.0 L MCV 95 MCH 31.6 MCHC 33.3 RDW Std Deviation 45.9 H Plt Count 173 Neut % (Auto) 80 Lymph % (Auto) 9 L [place] % (Auto) 11 Eos % (Auto) 0 Baso % (Auto) 0 Neut # (Auto) 7.9 H Lymph # (Auto) 0.9 L [place] # (Auto) 1.1 H Eos # (Auto) 0.0 Baso # (Auto) 0.0 Immature Gran # (Auto) 0.02 H Absolute Nucleated RBC 0.00 Immature Gran % 0 Nucleated RBC % 0 Sodium 139 Potassium 4.6 Chloride 103 Carbon Dioxide 27.0 Anion Gap 9 BUN 19 Creatinine 1.0 Estim Creat Clear Calc 58.0 L eGFR > 60 BUN/Creatinine Ratio 19 Glucose 162 H Calculated Osmolality 283 Calcium 8.9 Corrected Calcium 9.1 Phosphorus 3.6 Magnesium 2.2 Total Bilirubin 1.0 AST 25 ALT 29 Alkaline Phosphatase 83 Total Protein 6.1 Albumin 3.8 Globulin 2.3 Albumin/Globulin Ratio 1.7 Quality Measures Quality Measures none Advance care planning discussed with:: patient Assessment & Plan Assessment Current Active Medications: Generic Name Dose Route Start Last Admin Trade Name Freq PRN Reason Stop Dose Admin Acetaminophen 650 mg 10/09/24 17:38 Acetaminophen 325 Mg Tablet PO 11/08/24 17:37 Q6H PRN PAIN SCALE 1-3 (mild Hydrocodone Bitart/Acetaminophen 1 tab 10/09/24 17:38 10/11/24 08:20 Hydrocodone/Apap 5/325 Tablet PO 10/14/24 17:37 1 tab Q4HR PRN Administration PAIN SCALE 4-6 (Moderate Aspirin 81 mg 10/11/24 09:00 10/11/24 09:45 Aspirin Ec 81 Mg Tabec PO 11/10/24 08:59 81 mg BID BRIDGET Administration Atorvastatin Calcium 20 mg 10/09/24 21:00 10/10/24 22:38 Atorvastatin Calcium 20 Mg Tablet PO 11/08/24 20:59 20 mg HS BRIDGET Administration Dextrose 25 ml 10/09/24 18:17 Dextrose 50%-Water Inj 50 Ml Syringe IV 11/08/24 18:16 Q15MIN PRN BG 50-70 responsive npo pt Dextrose 50 ml 10/09/24 18:17 Dextrose 50%-Water Inj 50 Ml Syringe IV 11/08/24 18:16 Q15MIN PRN BG <50 OR BG <70 & pt unresponsive Glucagon 1 mg 10/09/24 18:17 Glucagon Inj 1 Mg Vial IM Q15MIN PRN BG <70, and no IV access Cefazolin Sodium/Dextrose 1 gm in 50 mls @ 100 mls/hr 10/11/24 08:36 10/11/24 09:45 Ancef Ivpb IV 10/12/24 08:35 100 mls/hr Q8HR BRIDGET Administration Insulin Human Lispro 0 unit 10/10/24 07:30 10/11/24 08:14 Insulin Lispro (Admelog) 1 Unit/0.01 Ml Unit SC 11/09/24 07:29 Not Given AC BRIDGET Protocol Morphine Sulfate 1 mg 10/09/24 17:38 10/11/24 09:31 Morphine Sulf Inj 10 Mg/Ml Vial IVP 10/14/24 17:37 1 mg Q2H PRN Administration PAIN SCALE 7-10 (Severe Ondansetron HCl 4 mg 10/09/24 17:59 Ondansetron Inj 2 Mg/Ml Inj 2 Ml IVP 11/08/24 17:58 Q6H PRN NAUSEA OR VOMITING Protocol Pantoprazole Sodium 40 mg 10/10/24 09:00 10/11/24 08:20 Pantoprazole Inj 40 Mg Vial IVP 11/09/24 08:59 40 mg QDAY BRIDGET Administration Paroxetine HCl 10 mg 10/10/24 09:00 10/11/24 08:20 Paroxetine Hcl 10 Mg Tablet PO 11/09/24 08:59 10 mg QDAY BRIDGET Administration Sennosides 1 tab 10/09/24 17:59 Senna Tablet PO 11/08/24 17:58 QDAY PRN constipation Protocol Trazodone HCl 50 mg 10/09/24 21:00 10/10/24 22:38 Trazodone Hcl 50 Mg Tablet PO 11/08/24 20:59 50 mg HS BRIDGET Administration Plan Assessment Mr. Monreal is a 78 year old male with PMH HTN, non-insulin dependent T2DM, anxiety/depression, and GERD, admitted for hip fracture following ground-level fall. Hip hemiarthroplasty done on 10/10/[address] Campos. #L hip fracture s/p L hip hemiarthroplasty (10/10/24), Post-op day 1 #Recurrent falls #Altered mental status, likely 2/2 recent surgery Slipped and fell onto left side and head on 10/09/24 after going to the bathroom. Patient noting LUE and LLE pain. No obvious deformities noted on LUE. Per niece, patient has had 10 falls since July while at [facility], which niece attributes to not using his walker and going to the bathroom without notifying staff. Could be secondary to residual weakness from possible stroke, given niece notes facial droop since 06/2024. Plan: - Orthopedics consulted, appreciate recs. - Ancef q8h x 1 day (10/11-10/12) for post-op prophylaxis - Start aspirin 81 mg po QD - Pain management PRN - PT consulted, f/u - Continue to monitor mentation. #Non-insulin dependent Type 2 DM Last A1c 5.6% in 06/2024. On Januvia 100 mg po QD, metformin 500 mg po BID, and pioglitazone 30 mg po QD at home. Plan: - Hold home medications inpatient - carb consistent diet - Insulin sliding scale #Hypertension On nifedipine 10 mg po QD, losartan 100 mg po QD, and carvedilol 12.5 mg BID at home. Plan: - Hold on home medications for now #? Hyperlipidemia On simvastatin 40 mg po QD Plan: - atorvastatin 20 mg po QD while inpatient. Simvastatin not on formulary. #Anxiety #Depression Plan: - Resume home Paxil 10 mg po QD - Resume home Trazadone 50 mg po QHS #Left upper extremity pain - resolved Health Maintenance Disposition: Med Surg DVT prophylaxis: SCDs GI prophylaxis: pantoprazole Diet: Carb consistent diet CODE STATUS: DNR Case discussed with my attending Dr. Mckeon, and senior resident, Dr. Gerald Proctor, OMS4 Attending Provider Attestation/Addendum I have discussed and was present for the essential components of the history, physical examination, diagnosis, and treatment plan with the resident. I agree with the patient's care as documented by the resident and amended herein by me. Efrain Mckeon DO. Although this document has been carefully reviewed, there may still be some phonetic and other typographical errors. These errors are purely grammatical due to imperfections in the software program and should not be construed in any way to compromise the substance of the patient's medical care during this visit. Will continue cefazolin today per orthopedic surgery recommendations, WBAT, aspirin 81 mg twice daily started. Possible discharge tomorrow 10/12 to SNF if patient continues to improve.
--- NOTE | 2024-10-11 11:59 | PC.SS ---
rounding note: Patient had surgery yesterday. Pending d/c weekend to [facility].
[2024-10-11] MEDS: ATORVASTATIN CALCIUM 20 MG TABLET PO (21:13)
[2024-10-12] VITALS (13 sets, daily range): BP systolic 122–175; BP diastolic 70–88; PULSE 90–100; RESP 12–95; TEMP 36.1–36.7; O2SAT 92–100; BMI 23.5
[2024-10-12] MEDS: HYDROcodone/APAP 5/325 TABLET 1 TAB PO ×3 (02:20→20:43)
[2024-10-12] MEDS: LOSARTAN POTASSIUM 25 MG TABLET 100 MG PO ×2 (05:08→08:25)
[2024-10-12] MEDS: ceFAZolin/D5W 1 GM IVPB 1 GM/50 ML BAG IV (05:08)
[2024-10-12 06:22] LABS: Basophils # (Auto) 0.0 Thou/mm3 (0.0-0.2); Basophils % (Auto) 0 % (0-2.5); Eosinophils # (Auto) 0.0 Thou/mm3 (0.0-0.5); Eosinophils % (Auto) 0 % (0-10); Hematocrit 30.4 % (41.0-53.0); Hemoglobin 10.1 g/dL (13.5-16.0); Immature Granulocytes Auto 0.04 Thou/mm3 (0.00-0.00); Lymphocytes # (Auto) 0.9 Thou/mm3 (1.0-4.8); Lymphocytes % (Auto) 11 % (10-50); Mean Corpuscular HGB Conc 33.2 g/dl (31.0-37.0); Mean Corpuscular Hemoglobin 31.8 pg (25.0-35.0); Mean Corpuscular Volume 96 fL (80-100); Monocytes # (Auto) 1.0 Thou/mm3 (0.0-0.8); Monocytes % (Auto) 13 % (0-12); Neutrophils # (Auto) 5.9 Thou/mm3 (1.8-7.7); Neutrophils % (Auto) 75 % (37-80); Nucleated Red Blood Cell # 0.00 Thou/mm3 (0.00-0.00); Nucleated Red Blood Cell % 0 /100 WBC (0); Platelet Count 174 Thou/mm3 (140-440); RDW Standard Deviation 47.9 fL (35.1-43.9); Red Blood Count 3.18 Miln/mm3 (4.50-5.90); White Blood Count 7.8 Thou/mm3 (3.8-10.6)
[2024-10-12 06:55] LABS: Alanine Aminotransferase 18 U/L (10-49); Albumin, Serum 3.8 gm/dL (3.4-4.8); Albumin/Globulin Ratio 1.5 (1.2-2.2); Alkaline Phosphatase 85 U/L (46-116); Anion Gap 10 (7-16); Aspartate Amino Transferase 22 U/L (0-34); BUN/Creatinine Ratio 13 Ratio (12-20); Bilirubin,Total 0.9 mg/dL (0.3-1.2); Blood Urea Nitrogen 12 mg/dL (9-23); Calcium 9.0 mg/dL (8.3-10.6); Calcium (Corrected) 9.2 mg/dL (8.5-10.1); Carbon Dioxide 27.2 mMol/L (20.0-31.0); Chloride 101 mMol/L (98-107); Creatinine (Component) 0.9 mg/dL (0.6-1.3); Estimated Creatinine Clearance 64.4 mL/min (>60); Globulin 2.5 gm/dL (2.3-3.5); Glucose 133 mg/dL (74-106); Magnesium 1.8 mg/dL (1.6-2.6); Osmolality,Calculated 277 (275-295); Phosphorous 1.8 mg/dL (2.4-5.1); Potassium 4.1 mMol/L (3.4-5.1); Sodium 138 mMol/L (136-145); Total Protein 6.3 gm/dL (5.7-8.2); eGFR > 60 See Note
[2024-10-12] MEDS: ASPIRIN EC 81 MG TABEC PO ×2 (08:25→20:43)
[2024-10-12] MEDS: POT PHOS 15 mMol in NS 250 ML 15 MMOL/250 ML BAG 62.5 MMOL IV (10:25)
[2024-10-12] MEDS: DOCUSATE SOD 100 MG CAPSULE PO (10:25)
[2024-10-12] MEDS: POLYETHYLENE GLYCOL 17 GM PACKET PO (10:25)
--- NOTE | 2024-10-12 11:11 | PC.NURSE ---
Addendum entered by June Tee RN 10/12/24 11:31: RESTRAINTS IN PLACE. PATIENT TRYING TO REMOVE IV AND STARTED GETTING AGGRESSIVE. HE ALSO PULLED ALL HIS BLANKETS OFF AND WAS TRYING TO GET OUT OF BED. SWINGING HIS LEG OVER THE RAILS. Original Note: RESTRAINTS IN PLACE. PATIENT TRYING TO REMOVE IV STARTED GETTING AGGRESSIVE.
--- NOTE | 2024-10-12 13:55 | PC.NURSE ---
PATIENT ON LORENE SURE AND RESTRAINTS.
--- NOTE | 2024-10-12 14:50 | PD.RESPRO ---
Documentation for date of: 10/12/24 Subjective Subjective Interval history: Patient examined bedside today. Patient is requesting to be untied at this time. Patient was put on restraints due to unable to comply with directions and pulling at lines. Patient denies any pain at this time. No other complaints at this time. Exam Vital Signs Temp Pulse Resp BP Pulse Ox O2 Del Method O2 Flow Rate 97.8 F 94 17 159/79 H 95 Nasal Cannula 2 10/12/24 12:00 10/12/24 12:00 10/12/24 12:00 10/12/24 12:00 10/12/24 12:00 10/12/24 12:00 10/12/24 12:00 Narrative Exam GENERAL: Alert but appearing somewhat confused. No acute distress. Not diaphoretic. HEENT: Normocephalic and atraumatic, but facial asymmetry present. Moist mucous membranes. No scleral icterus. EOMI. CV: Regular rate and rhythm. S1 and S2 heard. No murmurs. PULM: No accessory muscle use. CTAB. No wheezing or crackles. ABDOMEN: Soft and non-distended. Possible RUQ or right rib tenderness to palpation, although difficult to assess if patient was referring to his RUQ or hip when answering about tenderness. No rebound or guarding. EXTREMITIES: No lower extremity edema. SKIN: Warm and dry. NEURO: Moving all extremities spontaneously. No aphasia. Facial asymmetry present. PSYCH: Agitated and has restraints. Objective Labs 10/12/24 05:47 10/12/24 05:47 Labs: Laboratory Results - last 24 hr 10/12/24 05:47 WBC 7.8 RBC 3.18 L Hgb 10.1 L Hct 30.4 L MCV 96 MCH 31.8 MCHC 33.2 RDW Std Deviation 47.9 H Plt Count 174 Neut % (Auto) 75 Lymph % (Auto) 11 [place]eadle % (Auto) 13 H Eos % (Auto) 0 Baso % (Auto) 0 Neut # (Auto) 5.9 Lymph # (Auto) 0.9 L [place] # (Auto) 1.0 H Eos # (Auto) 0.0 Baso # (Auto) 0.0 Immature Gran # (Auto) 0.04 H Absolute Nucleated RBC 0.00 Immature Gran % 1 H Nucleated RBC % 0 Sodium 138 Potassium 4.1 D Chloride 101 Carbon Dioxide 27.2 Anion Gap 10 BUN 12 Creatinine 0.9 Estim Creat Clear Calc 64.4 eGFR > 60 BUN/Creatinine Ratio 13 Glucose 133 H Calculated Osmolality 277 Calcium 9.0 Corrected Calcium 9.2 Phosphorus 1.8 L Magnesium 1.8 Total Bilirubin 0.9 AST 22 ALT 18 Alkaline Phosphatase 85 Total Protein 6.3 Albumin 3.8 Globulin 2.5 Albumin/Globulin Ratio 1.5 Quality Measures Quality Measures none Advance care planning discussed with:: patient Assessment & Plan Assessment Current Active Medications: Generic Name Dose Route Start Last Admin Trade Name Freq PRN Reason Stop Dose Admin Acetaminophen 650 mg 10/09/24 17:38 Acetaminophen 325 Mg Tablet PO 11/08/24 17:37 Q6H PRN PAIN SCALE 1-3 (mild Hydrocodone Bitart/Acetaminophen 1 tab 10/09/24 17:38 10/12/24 02:20 Hydrocodone/Apap 5/325 Tablet PO 10/14/24 17:37 1 tab Q4HR PRN Administration PAIN SCALE 4-6 (Moderate Aspirin 81 mg 10/11/24 09:00 10/12/24 08:25 Aspirin Ec 81 Mg Tabec PO 11/10/24 08:59 81 mg BID BRIDGET Administration Atorvastatin Calcium 20 mg 10/09/24 21:00 10/11/24 21:13 Atorvastatin Calcium 20 Mg Tablet PO 11/08/24 20:59 20 mg HS BRIDGET Administration Carvedilol 12.5 mg 10/12/24 09:50 10/12/24 10:25 Carvedilol 12.5 Mg Tablet PO 11/11/24 09:49 12.5 mg BIDWM BRIDGET Administration Dextrose 25 ml 10/09/24 18:17 Dextrose 50%-Water Inj 50 Ml Syringe IV 11/08/24 18:16 Q15MIN PRN BG 50-70 responsive npo pt Dextrose 50 ml 10/09/24 18:17 Dextrose 50%-Water Inj 50 Ml Syringe IV 11/08/24 18:16 Q15MIN PRN BG <50 OR BG <70 & pt unresponsive Docusate Sodium 100 mg 10/12/24 09:45 10/12/24 10:25 Docusate Sod 100 Mg Capsule PO 11/11/24 09:44 100 mg QDAY BRIDGET Administration Protocol Glucagon 1 mg 10/09/24 18:17 Glucagon Inj 1 Mg Vial IM Q15MIN PRN BG <70, and no IV access Insulin Human Lispro 0 unit 10/10/24 07:30 10/12/24 11:50 Insulin Lispro (Admelog) 1 Unit/0.01 Ml Unit SC 11/09/24 07:29 Not Given AC BRIDGET Protocol Losartan Potassium 100 mg 10/12/24 04:05 10/12/24 08:25 Losartan Potassium 25 Mg Tablet PO 11/11/24 04:04 100 mg QDAY BRIDGET Administration Morphine Sulfate 1 mg 10/09/24 17:38 10/11/24 15:01 Morphine Sulf Inj 10 Mg/Ml Vial IVP 10/14/24 17:37 1 mg Q2H PRN Administration PAIN SCALE 7-10 (Severe Ondansetron HCl 4 mg 10/09/24 17:59 Ondansetron Inj 2 Mg/Ml Inj 2 Ml IVP 11/08/24 17:58 Q6H PRN NAUSEA OR VOMITING Protocol Pantoprazole Sodium 40 mg 10/10/24 09:00 10/12/24 08:25 Pantoprazole Inj 40 Mg Vial IVP 11/09/24 08:59 40 mg QDAY BRIDGET Administration Paroxetine HCl 10 mg 10/10/24 09:00 10/12/24 08:25 Paroxetine Hcl 10 Mg Tablet PO 11/09/24 08:59 10 mg QDAY BRIDGET Administration Quetiapine Fumarate 25 mg 10/12/24 21:00 Quetiapine Fumarate 25 Mg Tablet PO 11/11/24 20:59 HS BRIDGET Sennosides 1 tab 10/09/24 17:59 10/12/24 02:04 Senna Tablet PO 11/08/24 17:58 1 tab QDAY PRN Administration constipation Protocol Trazodone HCl 50 mg 10/09/24 21:00 10/11/24 21:13 Trazodone Hcl 50 Mg Tablet PO 11/08/24 20:59 50 mg HS BRIDGET Administration Plan Assessment Mr. Monreal is a 78 year old male with PMH HTN, non-insulin dependent T2DM, anxiety/depression, and GERD, admitted for hip fracture following ground-level fall. Hip hemiarthroplasty done on 10/10/[address] Campos. #L hip fracture s/p L hip hemiarthroplasty (10/10/24), Post-op day 2 #Recurrent falls #Delirium Slipped and fell onto left side and head on 10/09/24 after going to the bathroom. Patient noting LUE and LLE pain. No obvious deformities noted on LUE. Per niece, patient has had 10 falls since July while at [facility], which niece attributes to not using his walker and going to the bathroom without notifying staff. Could be secondary to residual weakness from possible stroke, given niece notes facial droop since 06/2024. Patient likely experiencing postoperative delirium, had to be restrained, and was given Seroquel 50 mg Pending bowel movement for medical clearance as well Plan: - Orthopedics consulted, appreciate recs. - Continue with Seroquel 25 mg at bedtime - Will remove restraints if patient is able to comply with directions - Continue aspirin 81 mg po QD - Pain management PRN - PT consulted, f/u - Continue to monitor mentation. #Non-insulin dependent Type 2 DM Last A1c 5.6% in 06/2024. On Januvia 100 mg po QD, metformin 500 mg po BID, and pioglitazone 30 mg po QD at home. Plan: ? Sliding scale insulin ? Hypoglycemic protocol in place ? Blood sugar checks with meals #Hypertension On nifedipine 10 mg po QD, losartan 100 mg po QD, and carvedilol 12.5 mg BID at home. Plan: - Resumed home Coreg 12.5 mg by mouth twice daily - Resumed home losartan 100 mg by mouth daily - Resumed home nifedipine 30 mg by mouth daily #Hyperlipidemia On simvastatin 40 mg po QD Plan: - Continue with Lipitor 20 mg at bedtime #Anxiety #Depression Plan: - Continue home Paxil 10 mg po QD - Continue home Trazadone 50 mg po QHS #Left upper extremity pain - resolved #Health Maintenance Disposition: MedSurg DVT prophylaxis: SCDs GI prophylaxis: Pantoprazole Diet: Carb consistent CODE STATUS: DNR Patient seen and care discussed with my attending physician, Dr. Linda Duarte, PGY-2 Attending Provider Attestation/Addendum I have discussed and was present for the essential components of the history, physical examination, diagnosis, and treatment plan with the resident. I agree with the patient's care as documented by the resident and amended herein by me. Efrain Mckeon DO. Although this document has been carefully reviewed, there may still be some phonetic and other typographical errors. These errors are purely grammatical due to imperfections in the software program and should not be construed in any way to compromise the substance of the patient's medical care during this visit. Patient seen and evaluated this AM. No acute events overnight, vital signs stable, patient afebrile. Pain well-controlled, BP slightly elevated, 175/88 mmHg today. Labs largely unremarkable. Patient is a bit altered today, required restraints with trying to pull out his IV lines and get out of bed, very similar to the behavior he was demonstrating at [facility]. Aspirin 81 mg twice daily, likely discharge back to [facility] tomorrow 10/13.
[2024-10-12] MEDS: NIFEdipine XL 30 MG TABCR PO (15:42)
[2024-10-12] MEDS: ATORVASTATIN CALCIUM 20 MG TABLET PO (20:43)
[2024-10-13] VITALS (9 sets, daily range): BP systolic 92–145; BP diastolic 55–71; PULSE 85–95; RESP 18–94; TEMP 36–36.6; O2SAT 92–97
[2024-10-13 06:01] LABS: Basophils # (Auto) 0.0 Thou/mm3 (0.0-0.2); Basophils % (Auto) 0 % (0-2.5); Eosinophils # (Auto) 0.1 Thou/mm3 (0.0-0.5); Eosinophils % (Auto) 1 % (0-10); Hematocrit 30.7 % (41.0-53.0); Hemoglobin 10.1 g/dL (13.5-16.0); Immature Granulocytes Auto 0.04 Thou/mm3 (0.00-0.00); Lymphocytes # (Auto) 1.2 Thou/mm3 (1.0-4.8); Lymphocytes % (Auto) 15 % (10-50); Mean Corpuscular HGB Conc 32.9 g/dl (31.0-37.0); Mean Corpuscular Hemoglobin 31.0 pg (25.0-35.0); Mean Corpuscular Volume 94 fL (80-100); Monocytes # (Auto) 1.2 Thou/mm3 (0.0-0.8); Monocytes % (Auto) 14 % (0-12); Neutrophils # (Auto) 5.8 Thou/mm3 (1.8-7.7); Neutrophils % (Auto) 70 % (37-80); Nucleated Red Blood Cell # 0.00 Thou/mm3 (0.00-0.00); Nucleated Red Blood Cell % 0 /100 WBC (0); Platelet Count 210 Thou/mm3 (140-440); RDW Standard Deviation 46.0 fL (35.1-43.9); Red Blood Count 3.26 Miln/mm3 (4.50-5.90); White Blood Count 8.4 Thou/mm3 (3.8-10.6)
[2024-10-13 06:36] LABS: Alanine Aminotransferase 14 U/L (10-49); Albumin, Serum 3.7 gm/dL (3.4-4.8); Albumin/Globulin Ratio 1.6 (1.2-2.2); Alkaline Phosphatase 89 U/L (46-116); Anion Gap 12 (7-16); Aspartate Amino Transferase 24 U/L (0-34); BUN/Creatinine Ratio 14 Ratio (12-20); Bilirubin,Total 1.2 mg/dL (0.3-1.2); Blood Urea Nitrogen 10 mg/dL (9-23); Calcium 9.5 mg/dL (8.3-10.6); Calcium (Corrected) 9.7 mg/dL (8.5-10.1); Carbon Dioxide 24.5 mMol/L (20.0-31.0); Chloride 103 mMol/L (98-107); Creatinine (Component) 0.7 mg/dL (0.6-1.3); Estimated Creatinine Clearance 82.8 mL/min (>60); Globulin 2.3 gm/dL (2.3-3.5); Glucose 124 mg/dL (74-106); Magnesium 1.8 mg/dL (1.6-2.6); Osmolality,Calculated 277 (275-295); Phosphorous 2.7 mg/dL (2.4-5.1); Potassium 4.1 mMol/L (3.4-5.1); Sodium 139 mMol/L (136-145); Total Protein 6.0 gm/dL (5.7-8.2); eGFR > 60 See Note
[2024-10-13] MEDS: LOSARTAN POTASSIUM 25 MG TABLET 100 MG PO (08:48)
[2024-10-13] MEDS: DOCUSATE SOD 100 MG CAPSULE PO (08:49)
[2024-10-13] MEDS: ASPIRIN EC 81 MG TABEC PO (08:49)
[2024-10-13] MEDS: NIFEdipine XL 30 MG TABCR PO (08:49)
--- NOTE | 2024-10-13 12:13 | PC.NURSE ---
Patient going to DC to [facility].
--- NOTE | 2024-10-13 13:16 | PD.RESDS ---
Planned Discharge Date 10/13/24 DS: Providers Provider Date of admission: 10/09/24 17:11 Primary care physician: Perry Gomez MD Admitting Provider: Nate Mckeon DO Attending Provider on Admission: Nate Mckeon DO Consults: 10/09/24 16:33 Consult to Orthopedic Stat Comment: femoral neck fracture Consulting Provider: Ronnie Campos 10/10/24 16:29 Referral Physical Therapy Urgent Comment: Physician Instructions: Instructions: wbat, no precautions Attending Provider on DC: Nate Mckeon DO Discharging Provider: Nate Mckeon DO DS: Diagnosis Problem List Completed Was Problem List Reviewed/Reconciled?: Yes Hospital Course Hospital Course Hospital course: Mr. Monreal is a 78 year old male with PMH HTN, non-insulin dependent T2DM, anxiety/depression, and GERD who was admitted to [facility] on October 09, 2024 for left hip fracture status post mechanical fall status post left hip hemiarthroplasty. Patient arrived to the ED with a blood pressure of 115/61, 67 HR, 18 RR, SpO2 98 on RA, 98.2F . Patient was worked up once found to have a PT 12.9, INR 1.2, ALP 117, WBC 12.8, Hgb 12.7. Hip CT showed acute left femoral neck fracture extending to the lesser trochanter, negative L tibia/fibula plain film. Forearm and humeral x-rays were done which were negative for acute fracture. Orthopedic surgery was consulted, Dr. Campos, who recommended admission for surgical intervention. Medicine was consulted patient admitted to the floors. While on the floors, patient had left hip hemiarthroplasty performed by Dr. Campos. Patient was given 1 day of Ancef and was started on DVT prophylaxis aspirin 81 mg twice daily. The day following the operation, patient had developed delirium in which he was managed with Seroquel and medical restraints. Patient was then cleared from medical restraints after delirium had resolved. Patient was then improving with multimodal pain management and was cleared for discharge. Patient was then discharged with the following instructions listed below. Discharge instructions Follow-up with your PCP within 1 week Follow up with your orthopedic surgeon, Dr. Campos within one to two weeks Take aspirin as prescribed I am prescribing you some [place] as well for severe pain, take as prescribed Take your medicines as prescribed Return to ED if your symptoms worsen or return Problem List: #L hip fracture s/p L hip hemiarthroplasty (10/10/24), #Recurrent falls #Delirium #Non-insulin dependent Type 2 DM #Hypertension #Hyperlipidemia #Anxiety #Depression #Left upper extremity pain - resolved Discharge summary was reviewed with my attending Dr. Linda Duarte, PGY-2 Time Spent with Patient Time attestation: Total time spent providing and/or coordinating discharge services: Time spent: Greater than 30 minutes Exam Vital Signs Temp Pulse Resp BP Pulse Ox O2 Del Method O2 Flow Rate 97.6 F 92 18 145/69 H 93 L Room Air 2 10/13/24 07:35 10/13/24 08:49 10/13/24 07:35 10/13/24 08:49 10/13/24 07:35 10/13/24 07:35 10/12/24 16:00 Narrative Exam GENERAL: Alert but appearing somewhat confused. No acute distress. Not diaphoretic. HEENT: Normocephalic and atraumatic, but facial asymmetry present. Moist mucous membranes. No scleral icterus. EOMI. CV: Regular rate and rhythm. S1 and S2 heard. No murmurs. PULM: No accessory muscle use. CTAB. No wheezing or crackles. ABDOMEN: Soft and non-distended. Possible RUQ or right rib tenderness to palpation, although difficult to assess if patient was referring to his RUQ or hip when answering about tenderness. No rebound or guarding. EXTREMITIES: No lower extremity edema. SKIN: Warm and dry. NEURO: Moving all extremities spontaneously. No aphasia. Facial asymmetry present. PSYCH: Agitated and has restraints. Discharge Plan Plan Patient Disposition: [facility] Patient condition on transfer: Stable Care Plan Goals: Discharge instructions Follow-up with your PCP within 1 week Follow up with your orthopedic surgeon, Dr. Campos within one to two weeks Take aspirin as prescribed I am prescribing you some [place] as well for severe pain, take as prescribed Take your medicines as prescribed Return to ED if your symptoms worsen or return Prescriptions/Referrals Prescriptions/Med Rec: New aspirin 81 mg tablet 81 mg PO BID 33 Days Qty: 66 0RF Rx Instructions: Take one tablet by mouth twice a day hydrocodone-acetaminophen 5-325 mg tablet 1 tab PO Q6H MDD 4 tablets PRN (Reason: pain) 3 Days Qty: 12 0RF Rx Instructions: Take one tablet by mouth up to four times a day Continued paroxetine HCl [Paxil] 40 MG tablet 40 mg PO QAM Qty: 0 metformin [Glucophage] 500 MG tablet 500 mg PO BIDAC Qty: 120 0RF omeprazole 20 mg Capsule,Delayed Release(Dr/Ec) 20 mg PO ACBR pioglitazone 30 mg Tablet 30 mg PO QDAY Januvia 100 mg Tablet 100 mg PO DAILY carvedilol 12.5 mg tablet 12.5 mg PO QDAY Patient Comments: TAKE 1 TABLET BY MOUTH 2 TIMES A DAY WITH FOOD FOR 30 DAYS losartan 100 mg tablet 100 mg PO QDAY Patient Comments: TAKE 1 TABLET BY MOUTH EVERY DAY nifedipine 30 mg tablet extended release 30 mg PO QDAY tramadol 50 mg tablet 50 mg PO Q8H PRN (Reason: moderate pain) simvastatin 40 mg tablet 40 mg PO HS trazodone 50 mg tablet 50 mg PO HS Patient Comments: TAKE 1 TABLET BY MOUTH EVERYDAY AT BEDTIME Referrals: Perry Gomez MD [Primary Care Provider] - Ronnie Campos MD [Physician] - Patient/Caregiver Discharge Instructions Discharge Activity: activity as tolerated Education Materials: Surgery Anesthesia After, After a Hip Fracture: Common Questions, Preventing Surgical Site Infections Print Language: Cuban Stand Alone Forms: Renetta Award Info., Patient Portal Info Letter Discharge Order Discharge Orders: Discharge (Routine); Ordered 10/13/24 Ordered By: Heraclio Duarte Quality Discharge Quality Measures VTE prophylaxis (Aspirin BID ) Attestestation MD Attestation I have discussed and was present for the essential components of the discharge history, physical examination, diagnosis, and discharge treatment plan with the resident. I agree with the patient's discharge care as documented by the resident and amended herein by me. Efrain Mckeon DO. The patient understood all discharge instructions, all questions were answered satisfactorily. The patient was instructed to return to the Emergency Department is symptoms worsened or persisted. Although this document has been carefully reviewed, there may still be some phonetic and other typographical errors. These errors are purely grammatical due to imperfections in the software program and should not be construed in any way to compromise the substance of the patient's medical care during this visit.
--- NOTE | 2024-10-13 14:56 | PC.SS ---
Charge Rn (MARC) Zayra notified by Dr. Mckeon that patient was ready for discharge to go to [facility]. [facility] contacted patient's niece, Abena Estes., via telephone call. MARC introduced self, role and reason for call. MARC explained that Dr. Mckeon placed discharge orders and patient would transfer to [facility]. Abena agreed with discharge plan. MARC notified patient of discharge; he has no concerns or questions at this time. MARC contacted [facility] for insurance transportation; however, MARC was unable to make any contact with veterans service representative. MARC asked for Motion Graphics Artist, Shena Centeno to approve THOMAS for discharge. MARC scheduled EMS transportation for 1829. MARC notified bedside RN-Kari.
--- NOTE | 2024-10-13 16:53 | PC.NURSE ---
Called [facility] two times to give report they leave me on the line. I will continue to call facility.
--- NOTE | 2024-10-13 17:27 | PC.NURSE ---
gave report to margy at [facility]
--- NOTE | 2024-10-13 18:19 | PC.NURSE ---
knot picker cloth time moved to 1999
== END 2024-10-13 20:04 | disposition skilled nursing facility (03) | DRG 522 ==
LOC: SERX 16:36 → S3SX 10-10 05:23 → SERHOLD 10-10 06:01
PROVIDERS: Orthopaedic Surgery Adult Reconstructive Orthopaedic Surgery; Admitting Provider Student in an Organized Health Care Education/Training Program; Emergency Provider Emergency Medicine; PCP Family Medicine; Visit Provider Student in an Organized Health Care Education/Training Program
PROC: 0SRR0JZ Replacement of Right Hip Joint, Femoral Surface with Synthetic Substitute, Open Approach (ICD-10-PCS; CPT 27125; principal; 2024-10-10 15:00)
DX: S72.012A Unspecified intracapsular fracture of left femur, initial encounter for closed fracture (principal); F05 Delirium due to known physiological condition; R29.6 Repeated falls; E11.9 Type 2 diabetes mellitus without complications; I10 Essential (primary) hypertension; F41.9 Anxiety disorder, unspecified; F32.A Depression, unspecified; E78.5 Hyperlipidemia, unspecified; W01.0XXA Fall on same level from slipping, tripping and stumbling without subsequent striking against object, initial encounter; H91.90 Unspecified hearing loss, unspecified ear; N40.0 Benign prostatic hyperplasia without lower urinary tract symptoms; Z79.84 Long term (current) use of oral hypoglycemic drugs; Y93.01 Activity, walking, marching and hiking; Z78.1 Physical restraint status; Z79.82 Long term (current) use of aspirin; Z87.891 Personal history of nicotine dependence; Z66 Do not resuscitate; Z79.899 Other long term (current) drug therapy
CPT/HCPCS: 36415; 70450; 72170; 73060; 73090; 73501; 73502; 73552; 73590; 73700; 80053; 82550; 83735; 84100; 84443; 85025; 85610; 85730; 87081; 96374; 96375; 96376; 97162; 99284; A4217; A4649; C1776; J0131; J0689; J1200; J2270; J2371; J2470; J2704; J3010; J3475; J3490; J7030; J7999; A9270

== ENCOUNTER 2024-10-22 14:18 | Outpatient (AMB) | payer MEDICARE, MEDICAID, SELFPAY ==
[2024-10-22 14:41] VITALS: BP 98/59; PULSE 69; RESP 18; TEMP 36.1; O2SAT 95; BMI 25.7
--- NOTE | 2024-10-22 14:41 | PD.ORTHCLVIS ---
Vital signs 10/22/24 14:41 Height 1.6 m Height Method Stated Weight 65.771 kg Weight Measurement Method Stated by Patient BMI 25.7 BP 98/59 L Blood Pressure Source Automatic Cuff Blood Pressure Location Left Upper Arm Position Sitting Respiration 18 Pulse 69 Pulse Source Monitor Temp 96.9 F Temp Source Temporal Artery Scan Pulse Oximetry (%) 95 Oxygen Delivery Method Room Air Med/Allergies Allergies & Medications Allergies No Known Allergies Allergy (Verified 10/22/24 14:43) Medication Reconciliation paroxetine HCl 40 mg tablet (Paxil) 40 mg PO QAM #0 tabs 07/02/13 [History Confirmed 10/22/24] metformin 500 mg tablet (Glucophage) 500 mg PO BIDAC #120 tabs 06/14/15 [Rx Confirmed 10/22/24] omeprazole 20 mg capsule,delayed release 20 mg PO ACBR 07/24/18 [History Confirmed 10/22/24] pioglitazone 30 mg tablet 30 mg PO QDAY 07/24/18 [History Confirmed 10/22/24] sitagliptin phosphate 100 mg tablet (Januvia) 100 mg PO DAILY 07/24/18 [History Confirmed 10/22/24] simvastatin 40 mg tablet 40 mg PO HS 07/18/24 [History Confirmed 10/22/24] trazodone 50 mg tablet 50 mg PO HS 07/18/24 [History Confirmed 10/22/24] carvedilol 12.5 mg tablet 12.5 mg PO QDAY 10/09/24 [History Confirmed 10/22/24] losartan 100 mg tablet 100 mg PO QDAY 10/10/24 [History Confirmed 10/22/24] nifedipine 30 mg tablet,extended release 30 mg PO QDAY 10/10/24 [History Confirmed 10/22/24] tramadol 50 mg tablet 50 mg PO Q8H PRN moderate pain 10/10/24 [History Confirmed 10/22/24] aspirin 81 mg tablet 81 mg PO BID 33 days #66 tabs 10/13/24 [Rx Confirmed 10/22/24] Exam Exam Patient is in no acute distress and is cooperative with the examination today. Patient has a normal mood and affect. Breathing is nonlabored. In no respiratory distress. Bilateral extremities were evaluated and demonstrates sensation intact to light touch. Palpable pedal pulses are present. No significant edema is present. Left hip incision is clean dry and intact Assessment and Plan Problem List (1) Femoral neck fracture: Status: Acute Plan: patient is a 78-year-old male with dementia with a left hip hemiarthroplasty fracture. I would like to see current x-rays. He feels like he is even leg lengths aguilar. We will see him back in approximately 1 to 2 weeks with new x-rays. Advanced Care Planning Discussion Advance care planning discussed with:: patient Office Procedures GNS Level of Care Nursing/Assessment Patient Status: Established Patient Nursing Assessment/Reassesment: Medication Reconciliation, Orthostatic Vitals, Update PMH in EMR and Vital Signs Coordination of Care: Complex Care and Chronic Disease 1-5, Education Complex Pt/Fam, Consent,records obtained, informed consent, Results/Orders obtained and Staff clarify orders Established Patient Charge Established Patient Point Assignment: 105 Established Patient Point Charge: EP Level 3 (80-115) MA Intake Visit Data Collection New Patient or Established: Established Patient (seen at [facility] within 3 years) Reason for Visit:: FRACTURE LEFT HIP Seen by Clinical Staff ONLY (RN/MA): No Charging Car Operator Required: Yes PCP or OBGYN visit in last 3 months: Yes Hx Now: No Do You Feel Safe at Home: Yes Authorities Contacted: N/A Questionairres Past Medical History Past Medical History Have you ever been diagnosed with any of the following: Neurological Problems Seizures: No Cardiology Problems Congestive Heart Failure: No Hypertension: Yes Respiratory Problems Chronic Obstructive Pulmonary Disease (COPD): No Asthma: Yes Stomache/Intestinal Problems Cirrhosis: Yes Gastroesophageal Reflux Disease: Yes Genital/Urinary Problems Renal Disease: No Head,Eye,Nose,Throat Problems Deafness: Yes Endocrine Problems Diabetes Mellitus Type 1: No Diabetes Mellitus Type 2: Yes Blood Problems Sickle Cell Disease: No Psychologic Problems Depression: Yes Other Problems Blood Transfusions: No Anesthesia Reactions: No Subjective Visit Visit for: follow up visit and hip Immunization / Flu Flu Vaccine in the Last 12 Months: Yes Flu Vaccine Exclusion Criteria: Already Received History of Present Illness Chief complaint: FRACTURE LEFT HIP Patient is a 78-year-old male with a left hip hemiarthroplasty. He stands for transfers. He is in a halfway home currently. He reports he has some pain in the buttocks Personal History Occupation: RETIRED Red flag PMH: none Pain Pain level (0-10): 4 Pain quality: dull Ambulatory data Ambulatory device: other (specify) (WHEELCHAIR) Treatments Improvement with previous injections: No Improvement with PT: No Improvement with NSAIDS: no Review of Systems Review of Systems: All systems negative unless otherwise noted in HPI.
== END 2024-10-22 15:05 | disposition home or self-care (01) ==
LOC: HODSRG 14:18
PROVIDERS: PCP Family Medicine; Referring Provider Family Medicine; Supervising Provider Orthopaedic Surgery Adult Reconstructive Orthopaedic Surgery; Visit Provider Orthopaedic Surgery Adult Reconstructive Orthopaedic Surgery
DX: S72.002D Fracture of unspecified part of neck of left femur, subsequent encounter for closed fracture with routine healing (principal); X58.XXXD Exposure to other specified factors, subsequent encounter; I10 Essential (primary) hypertension; K21.9 Gastro-esophageal reflux disease without esophagitis; E11.9 Type 2 diabetes mellitus without complications; F03.90 Unspecified dementia, unspecified severity, without behavioral disturbance, psychotic disturbance, mood disturbance, and anxiety
CPT/HCPCS: 99213; G0463

== ENCOUNTER 2024-11-14 14:13 | Outpatient (AMB) | payer MEDICARE, MEDICAID, SELFPAY ==
--- NOTE | 2024-11-14 14:19 | ORTHONT_ITS ---
Vital signs 11/14/24 14:25 Height 1.6 m Height Method Measured Weight 65.771 kg Weight Measurement Method Standing Scale BMI 25.7 BP 93/53 L Blood Pressure Source Automatic Cuff Blood Pressure Location Left Upper Arm Position Sitting Respiration 16 Pulse 64 Pulse Source Monitor Temp 97.3 F Temp Source Temporal Artery Scan Pulse Oximetry (%) 96 Oxygen Delivery Method Room Air Med/Allergies Allergies & Medications Allergies No Known Allergies Allergy (Verified 11/14/24 14:26) Medication Reconciliation paroxetine HCl 40 mg tablet (Paxil) 40 mg PO QAM #0 tabs 07/02/13 [History Confirmed 11/14/24] metformin 500 mg tablet (Glucophage) 500 mg PO BIDAC #120 tabs 06/14/15 [Rx Confirmed 11/14/24] omeprazole 20 mg capsule,delayed release 20 mg PO ACBR 07/24/18 [History Confirmed 11/14/24] pioglitazone 30 mg tablet 30 mg PO QDAY 07/24/18 [History Confirmed 11/14/24] sitagliptin phosphate 100 mg tablet (Januvia) 100 mg PO DAILY 07/24/18 [History Confirmed 11/14/24] simvastatin 40 mg tablet 40 mg PO HS 07/18/24 [History Confirmed 11/14/24] trazodone 50 mg tablet 50 mg PO HS 07/18/24 [History Confirmed 11/14/24] carvedilol 12.5 mg tablet 12.5 mg PO QDAY 10/09/24 [History Confirmed 11/14/24] losartan 100 mg tablet 100 mg PO QDAY 10/10/24 [History Confirmed 11/14/24] nifedipine 30 mg tablet,extended release 30 mg PO QDAY 10/10/24 [History Confirmed 11/14/24] tramadol 50 mg tablet 50 mg PO Q8H PRN moderate pain 10/10/24 [History Confirmed 11/14/24] aspirin 81 mg tablet 81 mg PO BID 33 days #66 tabs 10/13/24 [Rx Confirmed 11/14/24] Exam Exam Patient is in no acute distress and is cooperative with the examination today. Patient has a normal mood and affect. Breathing is nonlabored. In no respiratory distress. Bilateral extremities were evaluated and demonstrates sensation intact to light touch. Palpable pedal pulses are present. No significant edema is present. Left hip incision is clean dry and intact Left hip x-rays were reviewed by us. This is from [facility]. This is dated 10/25/2024 which demonstrates a cementless left total hip replacement in alignment position Assessment and Plan Problem List (1) Femoral neck fracture: Status: Acute Plan: patient is a 78-year-old male with dementia with a left hip hemiarthroplasty fracture. Left hip x-rays look good. We will have him continue work with therapy. We will see him back in approximately 6 weeks Advanced Care Planning Discussion Advance care planning discussed with:: patient Office Procedures GNS Level of Care Nursing/Assessment Patient Status: Established Patient Nursing Assessment/Reassesment: Medication Reconciliation, Update PMH in EMR and Vital Signs Coordination of Care: Complex Care and Chronic Disease 1-5, Education Complex Pt/Fam, Consent,records obtained, informed consent, Results/Orders obtained and Staff clarify orders Established Patient Charge Established Patient Point Assignment: 95 Established Patient Point Charge: Level 3 (80-115) MA Intake Visit Data Collection New Patient or Established: Established Patient (seen at [facility] within 3 years) Reason for Visit:: FRACTURE LEFT HIP Seen by Clinical Staff ONLY (RN/MA): No 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 PCP or OBGYN visit in last 3 months: Yes Hx Now: No Do You Feel Safe at Home: Yes Authorities Contacted: N/A Questionairres Past Medical History Past Medical History Have you ever been diagnosed with any of the following: Neurological Problems Seizures: No Cardiology Problems Congestive Heart Failure: No Hypertension: Yes Respiratory Problems Chronic Obstructive Pulmonary Disease (COPD): No Asthma: Yes Stomache/Intestinal Problems Cirrhosis: Yes Gastroesophageal Reflux Disease: Yes Genital/Urinary Problems Renal Disease: No Head,Eye,Nose,Throat Problems Deafness: Yes Endocrine Problems Diabetes Mellitus Type 1: No Diabetes Mellitus Type 2: Yes Blood Problems Sickle Cell Disease: No Psychologic Problems Depression: Yes Other Problems Blood Transfusions: No Anesthesia Reactions: No Subjective Visit Visit for: follow up visit and hip Immunization / Flu Flu Vaccine in the Last 12 Months: Yes Flu Vaccine Exclusion Criteria: Already Received History of Present Illness Chief complaint: FRACTURE LEFT HIP Patient is a 78-year-old male with a left hip hemiarthroplasty. He stands for transfers. He is in a care home home currently. He reports he has some pain in the buttocks We here for x-ray follow-up. 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
[2024-11-14 14:25] VITALS: BP 93/53; PULSE 64; RESP 16; TEMP 36.3; O2SAT 96; BMI 25.7
== END 2024-11-14 14:31 | disposition home or self-care (01) ==
LOC: HODSRG 14:13
PROVIDERS: PCP Family Medicine; Referring Provider Family Medicine; Supervising Provider Orthopaedic Surgery Adult Reconstructive Orthopaedic Surgery; Visit Provider Orthopaedic Surgery Adult Reconstructive Orthopaedic Surgery
DX: S72.002D Fracture of unspecified part of neck of left femur, subsequent encounter for closed fracture with routine healing (principal); X58.XXXD Exposure to other specified factors, subsequent encounter; I10 Essential (primary) hypertension; K74.60 Unspecified cirrhosis of liver; E11.9 Type 2 diabetes mellitus without complications; K21.9 Gastro-esophageal reflux disease without esophagitis
CPT/HCPCS: 99213; G0463

== ENCOUNTER 2024-12-26 14:28 | Outpatient (AMB) | payer MEDICARE, MEDICAID, SELFPAY ==
--- NOTE | 2024-12-26 14:36 | ORTHONT_ITS ---
Vital signs 12/26/24 14:37 Height 1.6 m Height Method Measured Weight 65.771 kg Weight Measurement Method Stated by Patient BMI 25.7 BP 86/45 L Blood Pressure Source Automatic Cuff Blood Pressure Location Left Upper Arm Position Sitting Respiration 16 Pulse 62 Pulse Source Monitor Temp 97.1 F Temp Source Temporal Artery Scan Pulse Oximetry (%) 95 Oxygen Delivery Method Room Air Med/Allergies Allergies & Medications Allergies No Known Allergies Allergy (Verified 12/26/24 14:38) Medication Reconciliation paroxetine HCl 40 mg tablet (Paxil) 40 mg PO QAM #0 tabs 07/02/13 [History Conf irmed 12/26/24] metformin 500 mg tablet (Glucophage) 500 mg PO BIDAC #120 tabs 06/14/15 [Rx Confirmed 12/26/24] omeprazole 20 mg capsule,delayed release 20 mg PO ACBR 07/24/18 [History Confirmed 12/26/24] pioglitazone 30 mg tablet 30 mg PO QDAY 07/24/18 [History Confirmed 12/26/24] sitagliptin phosphate 100 mg tablet (Januvia) 100 mg PO DAILY 07/24/18 [History Confirmed 12/26/24] simvastatin 40 mg tablet 40 mg PO HS 07/18/24 [History Confirmed 12/26/24] trazodone 50 mg tablet 50 mg PO HS 07/18/24 [History Confirmed 12/26/24] carvedilol 12.5 mg tablet 12.5 mg PO QDAY 10/09/24 [History Confirmed 12/26/24] losartan 100 mg tablet 100 mg PO QDAY 10/10/24 [History Confirmed 12/26/24] nifedipine 30 mg tablet,extended release 30 mg PO QDAY 10/10/24 [History Confirmed 12/26/24] tramadol 50 mg tablet 50 mg PO Q8H PRN moderate pain 10/10/24 [History Confirmed 12/26/24] Exam Exam Patient is in no acute distress and is cooperative with the examination today. Patient has a normal mood and affect. Breathing is nonlabored. In no respiratory distress. Bilateral extremities were evaluated and demonstrates sensation intact to light touch. Palpable pedal pulses are present. No significant edema is present. Left hip incision is clean dry and intact Left hip x-rays were reviewed by us. This is from [facility]. This is dated 10/25/2024 which demonstrates a cementless left total hip replacement in alignment position Assessment and Plan Problem List (1) Femoral neck fracture: Status: Acute Plan: patient is a 78-year-old male with dementia with a left hip hemiarthroplasty fracture. Left hip x-rays look good. We will have him continue work with therapy. We will see him back in approximately 8 weeks for routine follow-up Advanced Care Planning Discussion Advance care planning discussed with:: patient Office Procedures GNS Level of Care Nursing/Assessment Patient Status: Established Patient Nursing Assessment/Reassesment: Medication Reconciliation, Update PMH in EMR and Vital Signs Coordination of Care: Complex Care and Chronic Disease 1-5, Education Complex Pt/Fam, Consent,records obtained, informed consent, Results/Orders obtained and Staff clarify orders Established Patient Charge Established Patient Point Assignment: 95 Established Patient Point Charge: EP Level 3 (80-115) MA Intake Visit Data Collection New Patient or Established: Established Patient (seen at [facility] within 3 years) Reason for Visit:: FRACTURE LEFT HIP Seen by Clinical Staff ONLY (RN/MA): No Panel Builder Required: Yes PCP or OBGYN visit in last 3 months: Yes Hx Now: No Do You Feel Safe at Home: Yes Authorities Contacted: N/A Questionairres Past Medical History Past Medical History Have you ever been diagnosed with any of the following: Neurological Problems Seizures: No Cardiology Problems Congestive Heart Failure: No Hypertension: Yes Respiratory Problems Chronic Obstructive Pulmonary Disease (COPD): No Asthma: Yes Stomache/Intestinal Problems Cirrhosis: Yes Gastroesophageal Reflux Disease: Yes Genital/Urinary Problems Renal Disease: No Head,Eye,Nose,Throat Problems Deafness: Yes Endocrine Problems Diabetes Mellitus Type 1: No Diabetes Mellitus Type 2: Yes Blood Problems Sickle Cell Disease: No Psychologic Problems Depression: Yes Other Problems Blood Transfusions: No Anesthesia Reactions: No Subjective Visit Visit for: follow up visit and hip Immunization / Flu Flu Vaccine in the Last 12 Months: Yes Flu Vaccine Exclusion Criteria: Already Received History of Present Illness Chief complaint: FRACTURE LEFT HIP/6 WEEK F/U Patient is a 78-year-old male with a left hip hemiarthroplasty. He stands for transfers. He is in a correction home currently. He reports he has some pain in the buttocks He is 7 weeks out from surgery and continues to [facility] Personal History Occupation: RETIRED Red flag PMH: none Pain Pain level (0-10): 0 Pain quality: dull Ambulatory data Ambulatory device: other (specify) (WHEELCHAIR) Treatments Improvement with previous injections: No Improvement with PT: No Improvement with NSAIDS: no Review of Systems Review of Systems: All systems negative unless otherwise noted in HPI.
[2024-12-26 14:37] VITALS: BP 86/45; PULSE 62; RESP 16; TEMP 36.2; O2SAT 95; BMI 25.7
== END 2024-12-26 14:59 | disposition home or self-care (01) ==
LOC: HODSRG 14:28
PROVIDERS: PCP Family Medicine; Referring Provider Family Medicine; Supervising Provider Orthopaedic Surgery Adult Reconstructive Orthopaedic Surgery; Visit Provider Orthopaedic Surgery Adult Reconstructive Orthopaedic Surgery
DX: Z47.1 Aftercare following joint replacement surgery (principal); Z96.642 Presence of left artificial hip joint; I10 Essential (primary) hypertension; E11.9 Type 2 diabetes mellitus without complications; Z79.84 Long term (current) use of oral hypoglycemic drugs
CPT/HCPCS: 99213; G0463

== ENCOUNTER 2025-02-09 07:17 | Emergency (ER) | payer MEDICARE, MEDICAID, SELFPAY ==
--- NOTE | 2025-02-09 07:20 | PD.EDNV ---
Nausea/Vomit./Diarrhea-RME/HPI General Chief complaint: Nausea/Vomiting/Diarrhea Stated complaint: BROWN VOMIT Time Seen by Provider: 02/09/25 07:19 Arrival date/time: 02/09/25 07:17 RME / HPI RME / HPI Narrative: See MDM for Dr. Ellis's HPI documentation. Related Data Home Medications ?Medication ?Instructions ?Recorded ?Confirmed paroxetine HCl 40 mg tablet (Paxil) 40 mg PO QAM #0 tabs 07/02/13 12/26/24 omeprazole 20 mg capsule,delayed 20 mg PO ACBR 07/24/18 12/26/24 release pioglitazone 30 mg tablet 30 mg PO QDAY 07/24/18 12/26/24 sitagliptin phosphate 100 mg 100 mg PO DAILY 07/24/18 12/26/24 tablet (Januvia) simvastatin 40 mg tablet 40 mg PO HS 07/18/24 12/26/24 trazodone 50 mg tablet 50 mg PO HS 07/18/24 12/26/24 carvedilol 12.5 mg tablet 12.5 mg PO QDAY 10/09/24 12/26/24 losartan 100 mg tablet 100 mg PO QDAY 10/10/24 12/26/24 nifedipine 30 mg tablet,extended 30 mg PO QDAY 10/10/24 12/26/24 release tramadol 50 mg tablet 50 mg PO Q8H PRN moderate pain 10/10/24 12/26/24 Previous Rx's ?Medication ?Instructions ?Recorded metformin 500 mg tablet 500 mg PO BIDAC #120 tabs 06/14/15 (Glucophage) ondansetron 4 mg disintegrating 4 mg PO TID PRN nausea and 02/09/25 tablet vomiting 30 days #10 tabs Allergies Allergy/AdvReac Type Severity Reaction Status Date / Time No Known Allergies Allergy Verified 12/26/24 14:38 Review of Systems Review of Systems Systems Reviewed: All systems reviewed, normal except as documented Past Medical History Past Medical History NEUROLOGIC: Negative Seizures CARDIAC: Positive Cardiac Disorders and Hypertension; Negative Congestive Heart Failure RESPIRATORY: Positive Asthma; Negative Chronic Obstructive Pulmonary Disease (COPD) GASTROINTESTINAL: Positive Gastrointestinal Disorders, Cirrhosis, Gastrointestinal Bleed and Gastroesophageal Reflux Disease GENITOURINARY: Negative Renal Disease ENT: Positive History of ENT Problems and Deafness ENDOCRINE: Positive Endocrine Disorders and Diabetes Mellitus Type 2; Negative Diabetes Mellitus Type 1 HEMATOLOGIC: Negative Sickle Cell Disease PSYCHO/SOCIAL: Positive Depression OTHER HISTORY: Negative Blood Transfusions, Anesthesia Reactions or Cancer Social History SMOKING STATUS: Never smoker SUBSTANCE USE: does not use ED Exam Narrative Physical exam: See MDM for Dr. Ellis's physical exam documentation. Course Quality Measures none Orders Category Date Time Status Miscellaneous Nursing Order NOW Care 02/09/25 07:21 Completed Saline [Insert IV] NOW Care 02/09/25 07:22 Completed Straight [In and Out Catheter] X1 Care 02/09/25 07:22 Completed Amylase Stat Lab 02/09/25 07:44 Completed Bilirubin,Direct Stat Lab 02/09/25 07:44 Completed CBC Stat Lab 02/09/25 07:44 Completed CMP [Comprehensive Metabolic Panel] Stat Lab 02/09/25 07:44 Completed Lipase Stat Lab 02/09/25 07:44 Completed Magnesium Stat Lab 02/09/25 07:44 Completed UA, C/S IF [Urinalysis, C/S if Indicated] Stat Lab 02/09/25 08:30 Completed Famotidine Inj [Pepcid Inj] Med 02/09/25 07:22 Discontinued 20 mg IVP X1 ONE Ondansetron Inj [Zofran Inj] Med 02/09/25 07:22 Discontinued 4 mg IVP X1 ONE Pantoprazole Inj [Protonix Inj] Med 02/09/25 07:22 Discontinued 40 mg IVP X1 ONE Ringers Lactated 1000 ml [Lactated Ringers] 1,000 ml Med 02/09/25 07:22 Discontinued IV 500 mls/hr Vital Signs Vital signs: Vital Signs Temperature 98.4 F 02/09/25 07:26 Pulse Rate 108 H 02/09/25 07:26 Respiratory Rate 17 02/09/25 07:26 Blood Pressure 166/79 H 02/09/25 07:26 Pulse Oximetry (%) 98 02/09/25 07:26 Oxygen Delivery Method Room Air 02/09/25 07:26 Nausea/Vomiting/Diarrhea [facility] Narrative [facility] Narrative:: This section includes all my notes and documentations, including HPI, PE, and ED course. Janes Ellis MD HPI: 79-year-old male here [facility] after vomiting once. EMS reported brown color. No obvious abdominal pain. No other complaints. ROS: All negative except as documented in HPI. Physical Exam: General: Alert and oriented X 1. No acute distress when remaining still. Eyes: Conjunctivae and lids clear. ENT: No nasal congestion. Neck: Supple. Heart: RRR. Lungs: No respiratory distress. Good air movement. No rhonchi, wheezing, rales. Abdomen: Soft and nontender. Normal bowel sounds. No distension. No rebound or guarding. Back: No CVA tenderness. Skin: Warm and dry. Neuro: Alert and oriented X 1. I reviewed EMS and penitentiary notes. I reviewed all diagnostic test results: Blood tests and urine tests unremarkable. At this point, diagnoses include: Vomiting once with no obvious etiology Treatment here included: Pepcid 20 mg IV Zofran 4 mg IV Protonix 40 mg IV IVF Patient remained stable. Recommended continued monitoring at the penitentiary. Discharge Instructions from Dr. Ellis printed for you: 1. After evaluation, exact cause of vomiting was not determined. But there is no evidence of gastrointestinal bleeding. And there is no serious infection, such as pneumonia or UTI. 2. Zofran for nausea/vomiting and continue close monitoring. 3. See a private doctor on 02/10/2025 for recheck. To make sure there is no serious intra-abdominal condition, ask for help with more investigation not available here in the ER. Such as EGD or scoping the stomach, colonoscopy or scoping the colon, and referral to see mold car pusher. 4. Seek immediate medical care with worsening or with any concerns. Janes Ellis MD Patient data External records reviewed:: [facility] previous records (Per chart review, patient was admitted here on 10/09/24 for intertrochanteric fracture of left hip.) and EMS form Clinical information provided by:: patient Social determinants that could affect healthcare access:: none Patient has the following chronic illnesses:: HTN, DMII, anxiety/depression, GERD How is presenting disease/condition affected by chronic disease/condition?: exacerbated by Evaluation data The following diagnostics were reviewed and interpreted by me:: lab results Lab and/or radiology exams considered but not ordered:: none Interpretation Summary: Blood tests and urine tests unremarkable. Medications / Prescriptions Medications / Prescriptions considered but not ordered:: none Medication administrations:: Medication Administration History Discontinued Medications Famotidine (Famotidine Inj 10 Mg/Ml Vial 2 Ml) 20 mg IVP X1 ONE Stop: 02/09/25 07:23 Last Admin: 02/09/25 07:59 Dose: 20 mg Documented By: GENEVIEVE Lactated Ringer's (Lactated Ringers) 1,000 mls @ 500 mls/hr IV .Q2H ONE Stop: 02/09/25 09:21 Last Infusion: 02/09/25 10:50 Dose: Infused Documented By: Admin: 02/09/25 07:59 Dose: 500 mls/hr Documented By: GENEVIEVE Ondansetron HCl (Ondansetron Inj 2 Mg/Ml Inj 2 Ml) 4 mg IVP X1 ONE; Protocol Stop: 02/09/25 07:23 Last Admin: 02/09/25 07:58 Dose: 4 mg Documented By: GENEVIEVE Pantoprazole Sodium (Pantoprazole Inj 40 Mg Vial) 40 mg IVP X1 ONE Stop: 02/09/25 07:23 Last Admin: 02/09/25 07:58 Dose: 40 mg Documented By: GENEVIEVE Pepcid 20 mg IV Zofran 4 mg IV Protonix 40 mg IV IVF Consultations Consultation(s) initiated? (list below): No Diagnosis Nausea Differential Diagnosis: traveler's diarrhea, food poisoning, gastroenteritis, clostridium difficile infection, drug-induced nausea and vomiting and dehydration Most likely diagnosis given after review of the tests above:: Vomiting once with no clear etiology. Admission Indicated Admission indicated?: not indicated Explain why admission is indicated or not indicated:: With no condition needing emergent intervention, there was no indication for admission. Admission Request Was there a request for admission?: No Disposition Plan Disposition Plan: Discharge Discharge Attestation Discharge Attestation: The patient and all family members were given an opportunity to ask questions and understood the discharge instructions. Discharge instructions specifically effects, indications for sooner follow up or return to the emergency department, and the expected course of current diagnosis. Patient condition: Stable Discharge Plan Plan Patient Disposition: Xfer Skilled Nsg Fac (SNF) Prescriptions/Referrals Prescriptions/Med Rec: New ondansetron 4 mg tablet,disintegrating 4 mg PO TID PRN (Reason: nausea and vomiting) 30 Days Qty: 10 0RF No Action paroxetine HCl [Paxil] 40 MG tablet 40 mg PO QAM Qty: 0 metformin [Glucophage] 500 MG tablet 500 mg PO BIDAC Qty: 120 0RF omeprazole 20 mg Capsule,Delayed Release(Dr/Ec) 20 mg PO ACBR pioglitazone 30 mg Tablet 30 mg PO QDAY Januvia 100 mg Tablet 100 mg PO DAILY carvedilol 12.5 mg tablet 12.5 mg PO QDAY Patient Comments: TAKE 1 TABLET BY MOUTH 2 TIMES A DAY WITH FOOD FOR 30 DAYS losartan 100 mg tablet 100 mg PO QDAY Patient Comments: TAKE 1 TABLET BY MOUTH EVERY DAY nifedipine 30 mg tablet extended release 30 mg PO QDAY tramadol 50 mg tablet 50 mg PO Q8H PRN (Reason: moderate pain) simvastatin 40 mg tablet 40 mg PO HS trazodone 50 mg tablet 50 mg PO HS Patient Comments: TAKE 1 TABLET BY MOUTH EVERYDAY AT BEDTIME Referrals: Geo River MD [Primary Care Provider] - In 1 week Problem List Clinical Impression: Emesis Patient/Caregiver Discharge Instructions Discharge Activity: activity as tolerated Education Materials: ED Vomiting (Adult) Additional Instructions: Discharge Instructions from Dr. Ellis printed for you: 1. After evaluation, exact cause of vomiting was not determined. But there is no evidence of gastrointestinal bleeding. And there is no serious infection, such as pneumonia or UTI. 2. Zofran for nausea/vomiting and continue close monitoring. 3. See a private doctor on 02/10/2025 for recheck. To make sure there is no serious intra-abdominal condition, ask for help with more investigation not available here in the ER. Such as EGD or scoping the stomach, colonoscopy or scoping the colon, and referral to see mold car pusher. 4. Seek immediate medical care with worsening or with any concerns. Print Language: Korean Stand Alone Forms: Renetta Award Info., Patient Portal Info Letter
[2025-02-09 07:24] VITALS: PULSE 106; O2SAT 98; BMI 20.9
[2025-02-09 07:26] VITALS: BP 166/79; PULSE 108; RESP 17; TEMP 36.9; O2SAT 98
[2025-02-09] MEDS: ONDANSETRON INJ 2 MG/ML INJ 2 ML 4 MG IVP (07:58)
[2025-02-09] MEDS: FAMOTIDINE INJ 10 MG/ML VIAL 2 ML 20 MG IVP (07:59)
[2025-02-09] MEDS: RINGERS LACTATED 1000 ML 1,000 ML 500 ML IV (07:59)
[2025-02-09 08:02] LABS: Basophils # (Auto) 0.0 Thou/mm3 (0.0-0.2); Basophils % (Auto) 0 % (0-2.5); Eosinophils # (Auto) 0.2 Thou/mm3 (0.0-0.5); Eosinophils % (Auto) 2 % (0-10); Hematocrit 37.1 % (41.0-53.0); Hemoglobin 12.6 g/dL (13.5-16.0); Immature Granulocytes Auto 0.06 Thou/mm3 (0.00-0.00); Lymphocytes # (Auto) 1.3 Thou/mm3 (1.0-4.8); Lymphocytes % (Auto) 10 % (10-50); Mean Corpuscular HGB Conc 34.0 g/dl (31.0-37.0); Mean Corpuscular Hemoglobin 31.0 pg (25.0-35.0); Mean Corpuscular Volume 91 fL (80-100); Monocytes # (Auto) 0.9 Thou/mm3 (0.0-0.8); Monocytes % (Auto) 7 % (0-12); Neutrophils # (Auto) 11.1 Thou/mm3 (1.8-7.7); Neutrophils % (Auto) 82 % (37-80); Nucleated Red Blood Cell # 0.00 Thou/mm3 (0.00-0.00); Nucleated Red Blood Cell % 0 /100 WBC (0); Platelet Count 348 Thou/mm3 (140-440); RDW Standard Deviation 44.1 fL (35.1-43.9); Red Blood Count 4.07 Miln/mm3 (4.50-5.90); White Blood Count 13.6 Thou/mm3 (3.8-10.6)
[2025-02-09 09:13] LABS: Collection Type, Urine Clean Catch
[2025-02-09 09:44] LABS: Bilirubin,Urine Negative (Negative); Blood,Urine 2+ (Negative); Clarity,Urine Hazy (Clear/Hazy); Color,Urine Lt-Yellow (Lt Yel-Yel); Culture Indicated,Urine Not Indicated; Glucose, Urine Negative (Negative); Ketones,Urine Negative (Negative); Leukocyte Esterase,Urine Negative (Negative); Nitrite,Urine Negative (Negative); PH,Urine 8.0 (5.0-7.0); Protein,Urine Negative (Neg - Trace); RBC,Urine 212 /hpf (0-3); Specific Gravity,Urine 1.011 (1.001-1.035); Squamous Epithelial Cell,Urine 1 /hpf (0-5); Urobilinogen,Urine Negative mg/dL (0.0-1.0); WBC,Urine 1 /hpf (0-5)
[2025-02-09 10:00] LABS: Amylase 67 U/L (30-118)
[2025-02-09 10:26] VITALS: BP 146/73; PULSE 100; RESP 16; O2SAT 98
[2025-02-09 12:20] LABS: Alanine Aminotransferase 15 U/L (10-49); Albumin, Serum 4.5 gm/dL (3.4-4.8); Alkaline Phosphatase 77 U/L (46-116); Anion Gap 10 (7-16); Aspartate Amino Transferase 23 U/L (0-34); BUN/Creatinine Ratio 19 Ratio (12-20); Bilirubin,Direct 0.3 mg/dL (0.0-0.3); Bilirubin,Total 1.0 mg/dL (0.3-1.2); Blood Urea Nitrogen 17 mg/dL (9-23); Calcium 10.5 mg/dL (8.3-10.6); Calcium (Corrected) 10.5 mg/dL (8.5-10.1); Carbon Dioxide 28.8 mMol/L (20.0-31.0); Chloride 96 mMol/L (98-107); Creatinine (Component) 0.9 mg/dL (0.6-1.3); Estimated Creatinine Clearance 63.0 mL/min (>60); Glucose 108 mg/dL (74-106); Lipase 25 U/L (12-53); Magnesium 1.7 mg/dL (1.6-2.6); Osmolality,Calculated 272 (275-295); Potassium 5.0 mMol/L (3.4-5.1); Sodium 135 mMol/L (136-145); eGFR > 60 See Note
[2025-02-09 13:07] LABS: Albumin/Globulin Ratio 1.6 (1.2-2.2); Globulin 2.8 gm/dL (2.3-3.5); Total Protein 7.3 gm/dL (5.7-8.2)
[2025-02-09 14:18] VITALS: BP 150/95; PULSE 111; RESP 16; TEMP 37.5; O2SAT 99
[2025-02-09 16:03] VITALS: BP 121/86; PULSE 99; RESP 18; TEMP 37.2; O2SAT 98
--- NOTE | 2025-02-09 16:31 | PC.CC ---
SHERIN Iverson received a phone call from status controllerBita who reported that patient required assistance to return to [facility]. MANAGER PRODUCT SUPPORT completed PCS and contacted [employer] for transportation authorization (reference number: [id number]). Transportation ride has been placed on will-call until [employer] schedules ride with [facility]. MANAGER PRODUCT SUPPORT notified [employer].
[2025-02-09 18:12] VITALS: BP 134/73; PULSE 96; RESP 18; TEMP 37.3; O2SAT 98
== END 2025-02-09 18:49 | disposition skilled nursing facility (03) ==
PROVIDERS: Emergency Provider Emergency Medicine; PCP Hospitalist
DX: R11.2 Nausea with vomiting, unspecified (principal)
CPT/HCPCS: 36415; 51701; 80053; 81001; 82150; 82248; 83690; 83735; 85025; 96361; 96374; 96375; 99283; J2405; J2470; J3490; J7120